=== PATIENT | female | born 1945 | race Caucasian/White ===

== ENCOUNTER 2016-11-14 11:29 | Inpatient (IN) | payer OTHER ==
[~2016-11-14] VITALS: Ht 163.8 cm; Wt 84.5 kg
--- NOTE | 2016-11-14 12:07 | EMERGENCY ROOM VISIT NOTE ---
History First contact with patient: 11:50 Chief Complaint: LEG PAIN,LEG INJURY Stated Complaint: PAIN IN LEG,NUMB FOOT History of Present Illness The patient is a 71 year old female who presents to the Emergency Room with complaints of right leg pain and numbness. The patient states that she noticed some discomfort at her right leg. She states that she now has pain that radiates throughout her entire calf. She states that she has numbness in the right foot. She states that she is not able to dorsiflex her right foot and will trip over the foot if she is not paying attention. The patient rates her discomfort a 5/10. She reports a history of low back pain and right hip pain. The patient had a colonoscopy performed on Saturday. The patient denies any known falls or injuries. She denies any pain in her chest or trouble breathing. She denies any numbness, tingling or weakness in the other extremities. She denies any headache or dizziness. Review of Systems A 10 system review of systems was completed with positives and pertinent negatives listed in the HPI. Past Medical/Surgical History Medical Problems: (1) Hypertension Surgical Problems: (1) H/O ovarian cystectomy (2) History of appendectomy Social History Smoking Status: Former Smoker Housing Status: lives with family Current/Historical Medications Scheduled Aspirin (Aspirin EC Low Dose), 81 MG PO DAILY Fish Oil ([place]-3), 4 CAP PO DAILY Hctz/Losartan (Hyzaar 12.5MG/50MG), 1 TAB PO DAILY Iodine (Bulk) (Iodine), 2 TAB PO DAILY Multivitamin (Multivitamin), 1 TAB PO DAILY [calcium], 1,250 MG PO DAILY Physical Exam Vital Signs Date Time Temp Pulse Resp B/P (MAP) Pulse Ox O2 Delivery O2 Flow Rate FiO2 11/14/16 14:02 87 16 210/99 97 Room Air 11/14/16 12:20 88 20 195/94 98 Room Air 11/14/16 11:30 36.7 113 16 203/109 96 Room Air Physical Exam VITALS: Vitals are noted on the nurse's note and reviewed by myself. Vital signs stable. GENERAL: This is a 71-year-old female, in no acute distress, nondiaphoretic, well-developed well-nourished. SKIN: The skin was without rashes, erythema, edema, or bruising. There is no tenting of the skin. Capillary reflex less than 2 seconds. HEAD: Normocephalic atraumatic. EYES: Pupils equal round and reactive to light and accommodation. Conjunctivae without injection, sclerae without icterus. Extraocular movements intact. NOSE: Patent, turbinates without inflammation or discharge. MOUTH: Mucous membranes moist. Tonsils are not enlarged. Pharynx without erythema or exudate. Uvula midline. Airway patent. Tongue does not deviate. NECK: Supple without nuchal rigidity. No lymphadenopathy. No thyromegaly. Cervical spine is nontender. No JVD. HEART: Regular rate and rhythm without murmurs gallops or rubs. LUNGS: Clear to auscultation bilaterally without wheezes, rales or rhonchi. No retractions or accessory muscle use. ABDOMEN: Positive bowel sounds x 4. Soft, nontender, without masses or organomegaly. MUSCULOSKELETAL: There is minimal tenderness to palpation of the lumbar spine. There is tenderness to palpation to the right hip. There is no erythema, warmth , tenderness, palpable cord of the right calf or leg. There is no edema. The patient has full range of motion at the hip, knee on the right leg. The patient is not able to dorsiflex or plantar flex the right foot. Pulses are 2+ in the lower extremities bilaterally. NEURO: Patient was alert and oriented to person place and time. Normal sensation to light and sharp touch. Deep tendon reflexes 2+ in the patellar tendons bilaterally. The tendon reflex in the right Achilles is absent. It is 2+ in the left Achilles. The patient is unable to plantar or dorsiflex the right foot. Medical Decision & Procedures ER Provider Diagnostic Interpretation: [~ rep ct add3]] CT HEAD WITHOUT CONTRAST (CT) CLINICAL HISTORY: right foot drop COMPARISON STUDY: No previous studies for comparison. TECHNIQUE: Axial CT of the brain is performed from the vertex to the skull base. IV contrast was not administered for this examination. A dose lowering technique was utilized adhering to the principles of ALARA. CT DOSE: 614.27 mGy.cm FINDINGS: No intra or extra-axial mass lesions are visualized. There is no CT evidence of acute cortical infarction. There is no evidence of midline shift. There is no acute hemorrhage. No calvarial fractures are visualized. There are patchy white matter hypodensities likely on a small vessel basis. 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 There is no evidence of acute sinusitis IMPRESSION: No acute intracranial findings CT LUMBAR SPINE WITHOUT CT DOSE: 1251.23 mGy.cm CLINICAL HISTORY: right foot drop TECHNIQUE: Helical images were acquired in transverse plane. Reformatted sagittal and coronal images were reviewed. A dose lowering technique was utilized adhering to the principles of ALARA. CONTRAST: No contrast was administered COMPARISON STUDY: None. FINDINGS: L1-2 level: There is no evidence of significant disc bulge or focal herniation. There is no evidence of spinal or foraminal stenosis. L2-3 level: There are degenerative changes present. There is a circumferential disc bulge. There is mild spinal stenosis. There is minor bilateral foraminal narrowing. L3-4 level: There is a circumferential disc bulge present. There is moderate spinal stenosis. There is mild bilateral foraminal narrowing. L4-5 level: There is a circumferential disc bulge present. There is minor spinal stenosis present. There is mild bilateral foraminal narrowing L5-S1 level: There is no evidence of significant disc bulge or focal herniation. There is no evidence of spinal or foraminal stenosis. No acute fractures or subluxations are visualized. There is discogenic endplate sclerosis the L2-3 and L4-5 levels. Several Schmorl's nodes are visualized. IMPRESSION: 1. No acute fractures or traumatic subluxations identified 2. Multilevel spondylitic changes. There is mild spinal stenosis the L2-3 level, there is moderate spinal stenosis the L3-4 level, and there is mild spinal stenosis at the L4-5 level. There is bilateral foraminal narrowing at the L2-3, L3-4 level and L4-5 levels. Laboratory Results 11/14/16 12:05 Red Blood Count 5.18, Mean Corpuscular Volume 87.8, Mean Corpuscular Hemoglobin 30.1, Mean Corpuscular Hemoglobin Concent 34.3, Mean Platelet Volume 9.8, Neutrophils (%) (Auto) 69.5, Lymphocytes (%) (Auto) 24.4, Monocytes (%) (Auto) 4.8, Eosinophils (%) (Auto) 0.6, Basophils (%) (Auto) 0.5, Neutrophils # (Auto) 6.13, Lymphocytes # (Auto) 2.15, Monocytes # (Auto) 0.42, Eosinophils # (Auto) 0.05, Basophils # (Auto) 0.04 11/14/16 12:05 Test 11/14/16 12:05 White Blood Count 8.81 K/uL (4.8-10.8) Red Blood Count 5.18 M/uL (4.2-5.4) Hemoglobin 15.6 g/dL (12.0-16.0) Hematocrit 45.5 % (37-47) Mean Corpuscular Volume 87.8 fL (80-100) Mean Corpuscular Hemoglobin 30.1 pg (25-34) Mean Corpuscular Hemoglobin Concent 34.3 g/dl (32-36) Platelet Count 366 K/uL (130-400) Mean Platelet Volume 9.8 fL (7.4-10.4) Neutrophils (%) (Auto) 69.5 % Lymphocytes (%) (Auto) 24.4 % Monocytes (%) (Auto) 4.8 % Eosinophils (%) (Auto) 0.6 % Basophils (%) (Auto) 0.5 % Neutrophils # (Auto) 6.13 K/uL (1.4-6.5) Lymphocytes # (Auto) 2.15 K/uL (1.2-3.4) Monocytes # (Auto) 0.42 K/uL (0.11-0.59) Eosinophils # (Auto) 0.05 K/uL (0-0.5) Basophils # (Auto) 0.04 K/uL (0-0.2) RDW Standard Deviation 44.3 fL (36.4-46.3) RDW Coefficient of Variation 13.8 % (11.5-14.5) Immature Granulocyte % (Auto) 0.2 % Immature Granulocyte # (Auto) 0.02 K/uL (0.00-0.02) Prothrombin Time 9.8 SECONDS (9.0-12.0) Prothromb Time International Ratio 0.9 (0.9-1.1) Activated Partial Thromboplast Time 26.4 SECONDS (21.0-31.0) Partial Thromboplastin Ratio 1.0 Anion Gap 7.0 mmol/L (3-11) Est Creatinine Clear Calc Drug Dose 76.5 ml/min Estimated GFR () 91.5 Estimated GFR (Non- 78.9 BUN/Creatinine Ratio 20.2 (10-20) Calcium Level 9.1 mg/dl (8.5-10.1) Total Bilirubin 0.4 mg/dl (0.2-1) Aspartate Amino Transf (AST/SGOT) 19 U/L (15-37) Alanine Aminotransferase (ALT/SGPT) 30 U/L (12-78) Alkaline Phosphatase 107 U/L (45-117) Total Protein 7.1 gm/dl (6.4-8.2) Albumin 3.5 gm/dl (3.4-5.0) Globulin 3.6 gm/dl (2.5-4.0) Albumin/Globulin Ratio 1.0 (0.9-2) Lyme Disease IgG Antibody NEG (NEG) Lyme Disease IgM Antibody NEG (NEG) ED Course The patient was seen and examined. Previous visits were reviewed. The patient does not have a fever or leukocytosis. She does not have any significant electrolyte abnormality. INR 0.9. Lyme titer is negative. CT scan of the brain was negative for acute finding CT scan of the lumbar spine reveals chronic and degenerative changes The patient was seen and examined. Previous visits were reviewed. The patient complains of right foot drop. On examination, she is quite weak in dorsiflexion and plantar flexion of the right foot. She is easily able to move the leg at the hip and knee. This could potentially represent a peripheral neuropathy. She states she did wear a brace on her knee all night last night as she has had knee trouble. She also had a colonoscopy on Saturday, potentially she could have had some nerve compression due to positioning. The patient however was noted to be fairly hypertensive. The exact etiology of her symptoms is not clear. She will likely need an EMG. I discussed the case with Dr. Shah who also examined the patient. He recommends admission to the hospital for further evaluation and management. [facility] and [facility] will [facility] the patient. Medical Decision DIFFERENTIAL DIAGNOSIS: Lumbar strain, degenerative disc disease, spondylolisthesis, herniated disc, spinal stenosis, osteoporosis, fracture, cauda equina syndrome, neoplasm, infection, inflammatory arthritis, peripheral neuropathy, Aortic dissection, myocarditis, pericarditis, cervical disc disease , costochondritis, herpes zoster, rib fracture, pleuritis, pneumonia, pulmonary embolus, tension pneumothorax, anxiety disorder, somatoform disorder, choledocholithiasis, status, esophagitis, esophageal spasm, esophageal reflux, esophageal rupture, pancreatitis, peptic ulcer disease, cardiac ischemia, ST elevation AL, acute coronary syndrome, arrhythmia, coronary artery vasospasm. vavular heart disease, coronary artery disease, among others. Medication Reconcilliation Current Medication List: was personally reviewed by me Blood Pressure Screening Patient's blood pressure: Elevated blood pressure Blood pressure disposition: Elevated BP felt to be situational, Referred to PCP Impression Primary Impression: Right foot drop Additional Impression: Hypertension Departure Information Dispostion Admitted as an inpatient Referrals No Doctor, Assigned (PCP) Patient Instructions My [facility] Problem Qualifiers
[2016-11-14] MEDS ORDERED: OMEG10007 PO ×2 (12:24→15:25)
[2016-11-14] MEDS ORDERED: HYZ/10015 PO (12:24)
[2016-11-14] MEDS ORDERED: IODI1MIS PO (12:24)
[2016-11-14] MEDS ORDERED: MULT-506 PO (12:24)
[2016-11-14 12:32] LABS: BASO % 0.5 %; BASO ABS # 0.04 K/uL (0-0.2); COMPLETE YES; EOS % 0.6 %; HEMATOCRIT 45.5 % (37-47); IG% 0.2 %; LYMPH % 24.4 %; LYMPH ABS # 2.15 K/uL (1.2-3.4); MEAN CELL VOLUME 87.8 fL (80-100); MEAN CORPUSCULAR HEMOGLOBIN 30.1 pg (25-34); MEAN CORPUSCULAR HGB CONC 34.3 g/dl (32-36); MEAN PLATELET VOLUME 9.8 fL (7.4-10.4); MONO % 4.8 %; NEUT % 69.5 %; PLATELET COUNT 366 K/uL (130-400); RED BLOOD COUNT 5.18 M/uL (4.2-5.4); WHITE BLOOD COUNT 8.81 K/uL (4.8-10.8)
[2016-11-14 12:52] LABS: INR 0.9 (0.9-1.1); PROTHROMBIN TIME (PATIENT) 9.8 SECONDS (9.0-12.0)
[2016-11-14 12:56] LABS: BUN/CREATININE RATIO 20.2 (10-20); CALCIUM 9.1 mg/dl (8.5-10.1); CREATININE 0.76 mg/dl (0.60-1.20); POTASSIUM 3.5 mmol/L (3.5-5.1)
--- NOTE | 2016-11-14 13:09 | DIAGNOSTIC IMAGING REPORT ---
CT HEAD WITHOUT CONTRAST (CT) CLINICAL HISTORY: right foot drop COMPARISON STUDY: No previous studies for comparison. TECHNIQUE: Axial CT of the brain is performed from the vertex to the skull base. IV contrast was not administered for this examination. A dose lowering technique was utilized adhering to the principles of ALARA. CT DOSE: 614.27 mGy.cm FINDINGS: No intra or extra-axial mass lesions are visualized. There is no CT evidence of acute cortical infarction. There is no evidence of midline shift. There is no acute hemorrhage. No calvarial fractures are visualized. There are patchy white matter hypodensities likely on a small vessel basis. 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 There is no evidence of acute sinusitis IMPRESSION: No acute intracranial findings Electronically signed by: Jose Luis Mack M.D. 11/14/2016 1:07 PM Dictated Date/Time: 11/14/2016 1:06 PM
--- NOTE | 2016-11-14 13:15 | DIAGNOSTIC IMAGING REPORT ---
CT LUMBAR SPINE WITHOUT CT DOSE: 1251.23 mGy.cm CLINICAL HISTORY: right foot drop TECHNIQUE: Helical images were acquired in transverse plane. Reformatted sagittal and coronal images were reviewed. A dose lowering technique was utilized adhering to the principles of ALARA. CONTRAST: No contrast was administered COMPARISON STUDY: None. FINDINGS: L1-2 level: There is no evidence of significant disc bulge or focal herniation. There is no evidence of spinal or foraminal stenosis. L2-3 level: There are degenerative changes present. There is a circumferential disc bulge. There is mild spinal stenosis. There is minor bilateral foraminal narrowing. L3-4 level: There is a circumferential disc bulge present. There is moderate spinal stenosis. There is mild bilateral foraminal narrowing. L4-5 level: There is a circumferential disc bulge present. There is minor spinal stenosis present. There is mild bilateral foraminal narrowing L5-S1 level: There is no evidence of significant disc bulge or focal herniation. There is no evidence of spinal or foraminal stenosis. No acute fractures or subluxations are visualized. There is discogenic endplate sclerosis the L2-3 and L4-5 levels. Several Schmorl's nodes are visualized. IMPRESSION: 1. No acute fractures or traumatic subluxations identified 2. Multilevel spondylitic changes. There is mild spinal stenosis the L2-3 level, there is moderate spinal stenosis the L3-4 level, and there is mild spinal stenosis at the L4-5 level. There is bilateral foraminal narrowing at the L2-3, L3-4 level and L4-5 levels. Electronically signed by: Jose Luis Mack M.D. 11/14/2016 1:14 PM Dictated Date/Time: 11/14/2016 1:10 PM
[2016-11-14 13:55] LABS: LYME DISEASE AB IGG NEG (NEG); LYME DISEASE AB IGM NEG (NEG)
--- NOTE | 2016-11-14 14:54 | EMERGENCY ROOM VISIT NOTE ---
ED Visit Note First contact with patient: 11:50 I have seen and examined this patient with Vilma Mian and generally agree with the treatment plan as discussed. Current/Historical Medications Scheduled Hctz/Losartan (Hyzaar 25MG/100MG), 1 TAB PO DAILY Multivitamin (Multivitamin), 1 TAB PO DAILY Miscellaneous Medications Fish Oil ([place]-3), 1 CAP PO Iodine (Bulk) (Iodine) Vital Signs Date Time Temp Pulse Resp B/P (MAP) Pulse Ox O2 Delivery O2 Flow Rate FiO2 11/14/16 14:02 87 16 210/99 97 Room Air 11/14/16 12:20 88 20 195/94 98 Room Air 11/14/16 11:30 36.7 113 16 203/109 96 Room Air Laboratory Results 11/14/16 12:05 Red Blood Count 5.18, Mean Corpuscular Volume 87.8, Mean Corpuscular Hemoglobin 30.1, Mean Corpuscular Hemoglobin Concent 34.3, Mean Platelet Volume 9.8, Neutrophils (%) (Auto) 69.5, Lymphocytes (%) (Auto) 24.4, Monocytes (%) (Auto) 4.8, Eosinophils (%) (Auto) 0.6, Basophils (%) (Auto) 0.5, Neutrophils # (Auto) 6.13, Lymphocytes # (Auto) 2.15, Monocytes # (Auto) 0.42, Eosinophils # (Auto) 0.05, Basophils # (Auto) 0.04 11/14/16 12:05 Test 11/14/16 12:05 White Blood Count 8.81 K/uL (4.8-10.8) Red Blood Count 5.18 M/uL (4.2-5.4) Hemoglobin 15.6 g/dL (12.0-16.0) Hematocrit 45.5 % (37-47) Mean Corpuscular Volume 87.8 fL (80-100) Mean Corpuscular Hemoglobin 30.1 pg (25-34) Mean Corpuscular Hemoglobin Concent 34.3 g/dl (32-36) Platelet Count 366 K/uL (130-400) Mean Platelet Volume 9.8 fL (7.4-10.4) Neutrophils (%) (Auto) 69.5 % Lymphocytes (%) (Auto) 24.4 % Monocytes (%) (Auto) 4.8 % Eosinophils (%) (Auto) 0.6 % Basophils (%) (Auto) 0.5 % Neutrophils # (Auto) 6.13 K/uL (1.4-6.5) Lymphocytes # (Auto) 2.15 K/uL (1.2-3.4) Monocytes # (Auto) 0.42 K/uL (0.11-0.59) Eosinophils # (Auto) 0.05 K/uL (0-0.5) Basophils # (Auto) 0.04 K/uL (0-0.2) RDW Standard Deviation 44.3 fL (36.4-46.3) RDW Coefficient of Variation 13.8 % (11.5-14.5) Immature Granulocyte % (Auto) 0.2 % Immature Granulocyte # (Auto) 0.02 K/uL (0.00-0.02) Prothrombin Time 9.8 SECONDS (9.0-12.0) Prothromb Time International Ratio 0.9 (0.9-1.1) Activated Partial Thromboplast Time 26.4 SECONDS (21.0-31.0) Partial Thromboplastin Ratio 1.0 Anion Gap 7.0 mmol/L (3-11) Est Creatinine Clear Calc Drug Dose 76.5 ml/min Estimated GFR () 91.5 Estimated GFR (Non- 78.9 BUN/Creatinine Ratio 20.2 (10-20) Calcium Level 9.1 mg/dl (8.5-10.1) Total Bilirubin 0.4 mg/dl (0.2-1) Aspartate Amino Transf (AST/SGOT) 19 U/L (15-37) Alanine Aminotransferase (ALT/SGPT) 30 U/L (12-78) Alkaline Phosphatase 107 U/L (45-117) Total Protein 7.1 gm/dl (6.4-8.2) Albumin 3.5 gm/dl (3.4-5.0) Globulin 3.6 gm/dl (2.5-4.0) Albumin/Globulin Ratio 1.0 (0.9-2) Lyme Disease IgG Antibody NEG (NEG) Lyme Disease IgM Antibody NEG (NEG) Departure Information Referrals Trudi He M.D. (MEDICAL) (PCP) Patient Instructions My [facility]
[2016-11-14] MEDS ORDERED: ACETAMINOPHEN 325 MG TAB PO PRN (15:00)
[2016-11-14] MEDS ORDERED: ONDANSETRON INJ 2 MG/ML 2 ML VIAL IV PRN (15:00)
[2016-11-14] MEDS ORDERED: PATIENT'S ALLERGY INFO NEEDS ENTERED SCH (15:15)
[2016-11-14] MEDS ORDERED: calcium PO (15:25)
[2016-11-14] MEDS ORDERED: HYZ/50125 PO (15:25)
[2016-11-14] MEDS ORDERED: ASPEC81 PO (15:25)
[2016-11-14] MEDS ORDERED: IV FLUIDS COMPLETED PRN (15:30)
[2016-11-14] MEDS ORDERED: HydrALAZINE HCL 20 MG/ML VIAL IV. PRN (15:45)
--- NOTE | 2016-11-14 16:58 | History and Physical ---
History & Physical Date & Time of Service: Nov 14, 2016 ~ 14:45 Chief Complaint: Right Foot Drop Primary Care Physician: Trudi He M.D. (MEDICAL) History of Present Illness 71 year female who presents to the ER with right foot drop. Patient reports that over the past couple of weeks she has noticed her right knee giving out on her. She denies any pain in the leg. She denies any injury or trauma. She wore a brace on her leg throughout the night. When she woke up this morning she reports she could not move her right foot. She reports sensation is intact to the foot. She was also able to walk however her foot was dragging. She denies any other unilateral weakness, numbness, or tingling. She denies any headache, blurred vision, slurred speech, drooling, or difficulty swallowing. No chest pain, shortness of breath, lightheadedness, dizziness, diaphoresis, or syncopal events. She denies fever and chills. No abdominal pain, nausea, vomiting, or diarrhea. She denies urinary symptoms. In the ER, patient's BP was found to be elevated at 203/109. Head CT is negative for acute findings. Lumbar CT is showing multilevel mild-moderate spinal stenosis. Past Medical/Surgical History Medical Problems: (1) Hypertension Status: Chronic Surgical Problems: (1) H/O ovarian cystectomy Status: Chronic (2) History of appendectomy Status: Chronic Family History FH: CAD (coronary artery disease) FATHER (fatal [facility] at age 45) BROTHER (CABG in his 50s) BROTHER (CABG in his 50s) SISTER ([facility] at age 53) FH: liver cancer MOTHER Social History Smoking Status: Former Smoker Alcohol Use: occasionally Immunizations History of Tetanus Vaccine?: Yes Tetanus Immunization Date: Jun 11, 2012 Allergies Coded Allergies: No Known Allergies (Unverified , 11/14/16) Home Medications Scheduled Aspirin (Aspirin EC Low Dose), 81 MG PO DAILY Fish Oil (House-3), 4 CAP PO DAILY Hctz/Losartan (Hyzaar 12.5MG/50MG), 1 TAB PO DAILY Iodine (Bulk) (Iodine), 2 TAB PO DAILY Multivitamin (Multivitamin), 1 TAB PO DAILY [calcium], 1,250 MG PO DAILY Review of Systems ROS per HPI, all other systems reviewed and negative Physical Exam Vital Signs Date Time Temp Pulse Resp B/P (MAP) Pulse Ox O2 Delivery O2 Flow Rate FiO2 11/14/16 15:40 86 18 209/96 96 Room Air 11/14/16 14:02 87 16 210/99 97 Room Air 11/14/16 12:20 88 20 195/94 98 Room Air 11/14/16 11:30 36.7 113 16 203/109 96 Room Air General Appearance: no apparent distress Head: normocephalic, atraumatic Eyes: normal inspection, PERRL, EOMI, sclerae normal ENT: hearing grossly normal Neck: supple, no JVD Respiratory/Chest: lungs clear, normal breath sounds, no respiratory distress Cardiovascular: regular rate, rhythm, no edema, normal peripheral pulses Abdomen/GI: normal bowel sounds, non tender, soft Extremities/Musculoskelatal: + pertinent finding (+ right foot drop) Neurologic/Psych: alert, oriented x 3, + pertinent finding (right foot drop noted; 5/5 strength noted to BLLE with the exception of inability to preform right pedal push and pull; no other focal deficits noted) Skin: normal color, warm/dry Diagnostics Laboratory Results Results Past 24 Hours Test 11/14/16 12:05 Range/Units White Blood Count 8.81 4.8-10.8 K/uL Red Blood Count 5.18 4.2-5.4 M/uL Hemoglobin 15.6 12.0-16.0 g/dL Hematocrit 45.5 37-47 % Mean Corpuscular Volume 87.8 80-100 fL Mean Corpuscular Hemoglobin 30.1 25-34 pg Mean Corpuscular Hemoglobin Concent 34.3 32-36 g/dl Platelet Count 366 130-400 K/uL Mean Platelet Volume 9.8 7.4-10.4 fL Neutrophils (%) (Auto) 69.5 % Lymphocytes (%) (Auto) 24.4 % Monocytes (%) (Auto) 4.8 % Eosinophils (%) (Auto) 0.6 % Basophils (%) (Auto) 0.5 % Neutrophils # (Auto) 6.13 1.4-6.5 K/uL Lymphocytes # (Auto) 2.15 1.2-3.4 K/uL Monocytes # (Auto) 0.42 0.11-0.59 K/uL Eosinophils # (Auto) 0.05 0-0.5 K/uL Basophils # (Auto) 0.04 0-0.2 K/uL RDW Standard Deviation 44.3 36.4-46.3 fL RDW Coefficient of Variation 13.8 11.5-14.5 % Immature Granulocyte % (Auto) 0.2 % Immature Granulocyte # (Auto) 0.02 0.00-0.02 K/uL Prothrombin Time 9.8 9.0-12.0 SECONDS Prothromb Time International Ratio 0.9 0.9-1.1 Activated Partial Thromboplast Time 26.4 21.0-31.0 SECONDS Partial Thromboplastin Ratio 1.0 Sodium Level 140 136-145 mmol/L Potassium Level 3.5 3.5-5.1 mmol/L Chloride Level 107 98-107 mmol/L Carbon Dioxide Level 26 21-32 mmol/L Anion Gap 7.0 3-11 mmol/L Blood Urea Nitrogen 15 7-18 mg/dl Creatinine 0.76 0.60-1.20 mg/dl Est Creatinine Clear Calc Drug Dose 76.5 ml/min Estimated GFR () 91.5 Estimated GFR (Non- 78.9 BUN/Creatinine Ratio 20.2 10-20 Random Glucose 111 70-99 mg/dl Calcium Level 9.1 8.5-10.1 mg/dl Total Bilirubin 0.4 0.2-1 mg/dl Aspartate Amino Transf (AST/SGOT) 19 15-37 U/L Alanine Aminotransferase (ALT/SGPT) 30 12-78 U/L Alkaline Phosphatase 107 45-117 U/L Total Protein 7.1 6.4-8.2 gm/dl Albumin 3.5 3.4-5.0 gm/dl Globulin 3.6 2.5-4.0 gm/dl Albumin/Globulin Ratio 1.0 0.9-2 Lyme Disease IgG Antibody NEG NEG Lyme Disease IgM Antibody NEG NEG Diagnostic Radiology CT LUMBAR SPINE IMPRESSION: 1. No acute fractures or traumatic subluxations identified 2. Multilevel spondylitic changes. There is mild spinal stenosis the L2-3 level, there is moderate spinal stenosis the L3-4 level, and there is mild spinal stenosis at the L4-5 level. There is bilateral foraminal narrowing at the L2-3, L3-4 level and L4-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 from wearing right knee brace last night - PT, brace, and outpatient EMG testing HYPERTENSIVE URGENCY - patient reports "white coat hypertension" - asymptomatic, head CT negative - PRN hydralazine, continue Hyzaar - consider addition of amlodipine if needed DVT PROPHYLAXIS - SQ Lovenox DISPO - The patient will be placed as observation status for now until further work up is complete. Attending Addendum Pt was seen and examined. Agreed with Vy KOTHARI physical exam, assessment and plan. 71 year female with PMH of HTN presents to the ER with right foot drop. She said that in the last couple weeks her right knee starting to give up. Pt said that yesterday she saw her chiropractor and she said had some manipulation done on her back and the right knee. she said that she wore a brace last night in the right knee. She said that this morning she woke up with right foot drop. she said that she is dragging her right feet while ambulating. Pt said that before coming to the ER she had some work out on her stationary bike. She denies any other unilateral weakness, slurred speech, headache, dizziness, blurred vision, chest pain, palpitation, or tingling. She denies urinary symptoms, no bladder or bowel loss. In the ER, patient's BP was found to be elevated at 203/109. Head CT is negative for acute findings. Lumbar CT is showing multilevel mild-moderate spinal stenosis. General- No acute distress Head- atraumatic Eyes- PERRL, EOMI ENT- oropharynx clear Neck- supple, no JVD Lungs- clear to auscultation Heart- regular rhythm; no murmur Abdomen- normal bowel sounds, soft Extremities-no calf tenderness Neuro- alert, oriented x 3; PERRL, EOMI; no facial palsy; no dysarthria;finger to nose intact bilaterally, able to keep right leg up, motor 4/5 in RLE Skin- warm & dry A/P Right Foot Drop Denied any associated symptoms No neuro focal deficit on exam CT head negative CT Lumbar showed moderate spinal stenosis the L3-4 level Bilateral foraminal narrowing at the L2-3, L3-4 level and L4-5 levels. If pt symptoms not improved or any other stroke like symptoms develop, will get an MRI of the head Will Consult neuro for further eval continue monitor in tele Informed nurse for neuro check Hypertensive Urgency Elevated BP Received hydralazine in the ER Continue BP med Labetatol PRN for BP above 170 Sinus Tachycardia Possible related to anxiety from hospital setting Pt said that it is the hydralazine that she got in the ER that makes her feel funny Consider low dose of BB if HR increased above 120 DVT px on lovenox suq CODE STATUS FULL CODE VTE Prophylaxis VTE Risk Assessment Done? Y/N: Yes Risk Level: Moderate
[2016-11-14 17:18] VITALS: BP 186/73; PULSE 116; TEMP 36.4; O2SAT 99; Ht 163.8 cm; Wt 84.5 kg
[2016-11-14 17:43] VITALS: PULSE 128
[2016-11-14 18:35] VITALS: BP 176/77; PULSE 123
[2016-11-14 19:18] VITALS: BP 144/69; PULSE 115; TEMP 36.6; O2SAT 94
[2016-11-14] MEDS ORDERED: LABETALOL HCL IV 5 MG/ML 20ML IV PRN (20:15)
[2016-11-14] MEDS ORDERED: ENOXAPARIN 40 MG/0.4 ML SYR SC SCH (21:00)
--- NOTE | 2016-11-14 21:53 | Progress Note ---
Internal Med Progress Note Date of Service: Nov 14, 2016. Provider Documentation: Made aware by RN of patient history of intermittent slurred speech earlier before coming to the hospital. Speech currently not slurred as per RN. AP Intermittent slurred speech, right lower extremity weakness ? TIA ? aspirin failure Neurochecks MRI, MRA of the brain Plavix for now for possible aspirin failure until stroke ruled out. Permissive hypertension until stroke definitely ruled out. Will relay to AM provider. Vital Signs: Date Time Temp Pulse Resp B/P (MAP) Pulse Ox O2 Delivery O2 Flow Rate FiO2 11/15/16 07:15 36.7 69 20 182/81 (114) 97 Room Air 11/15/16 04:00 Room Air 11/15/16 03:54 36.7 89 18 168/84 (112) 95 Room Air 11/15/16 00:50 Room Air 11/15/16 00:00 36.9 97 18 173/97 (122) 95 Room Air 11/14/16 20:00 Room Air 11/14/16 19:18 36.6 115 20 144/69 (94) 94 Room Air 11/14/16 18:35 123 176/77 (110) 11/14/16 17:43 128 11/14/16 17:18 36.4 116 16 186/73 99 Room Air 11/14/16 16:06 79 20 161/69 95 Room Air 11/14/16 15:40 86 18 209/96 96 Room Air 11/14/16 14:02 87 16 210/99 97 Room Air 11/14/16 12:20 88 20 195/94 98 Room Air 11/14/16 11:30 36.7 113 16 203/109 96 Room Air Lab Results: Results Past 24 Hours Test 11/14/16 12:05 11/15/16 06:27 Range/Units White Blood Count 8.81 9.05 4.8-10.8 K/uL Red Blood Count 5.18 4.98 4.2-5.4 M/uL Hemoglobin 15.6 15.2 12.0-16.0 g/dL Hematocrit 45.5 42.9 37-47 % Mean Corpuscular Volume 87.8 86.1 80-100 fL Mean Corpuscular Hemoglobin 30.1 30.5 25-34 pg Mean Corpuscular Hemoglobin Concent 34.3 35.4 32-36 g/dl Platelet Count 366 340 130-400 K/uL Mean Platelet Volume 9.8 9.4 7.4-10.4 fL Neutrophils (%) (Auto) 69.5 % Lymphocytes (%) (Auto) 24.4 % Monocytes (%) (Auto) 4.8 % Eosinophils (%) (Auto) 0.6 % Basophils (%) (Auto) 0.5 % Neutrophils # (Auto) 6.13 1.4-6.5 K/uL Lymphocytes # (Auto) 2.15 1.2-3.4 K/uL Monocytes # (Auto) 0.42 0.11-0.59 K/uL Eosinophils # (Auto) 0.05 0-0.5 K/uL Basophils # (Auto) 0.04 0-0.2 K/uL RDW Standard Deviation 44.3 43.9 36.4-46.3 fL RDW Coefficient of Variation 13.8 14.1 11.5-14.5 % Immature Granulocyte % (Auto) 0.2 % Immature Granulocyte # (Auto) 0.02 0.00-0.02 K/uL Prothrombin Time 9.8 9.0-12.0 SECONDS Prothromb Time International Ratio 0.9 0.9-1.1 Activated Partial Thromboplast Time 26.4 21.0-31.0 SECONDS Partial Thromboplastin Ratio 1.0 Sodium Level 140 141 136-145 mmol/L Potassium Level 3.5 3.8 3.5-5.1 mmol/L Chloride Level 107 108 98-107 mmol/L Carbon Dioxide Level 26 26 21-32 mmol/L Anion Gap 7.0 7.0 3-11 mmol/L Blood Urea Nitrogen 15 16 7-18 mg/dl Creatinine 0.76 0.75 0.60-1.20 mg/dl Est Creatinine Clear Calc Drug Dose 76.5 73.1 ml/min Estimated GFR () 91.5 92.9 Estimated GFR (Non- 78.9 80.2 BUN/Creatinine Ratio 20.2 21.9 10-20 Random Glucose 111 106 70-99 mg/dl Calcium Level 9.1 9.0 8.5-10.1 mg/dl Total Bilirubin 0.4 0.2-1 mg/dl Aspartate Amino Transf (AST/SGOT) 19 15-37 U/L Alanine Aminotransferase (ALT/SGPT) 30 12-78 U/L Alkaline Phosphatase 107 45-117 U/L Total Protein 7.1 6.4-8.2 gm/dl Albumin 3.5 3.4-5.0 gm/dl Globulin 3.6 2.5-4.0 gm/dl Albumin/Globulin Ratio 1.0 0.9-2 Lyme Disease IgG Antibody NEG NEG Lyme Disease IgM Antibody NEG NEG Triglycerides Level 120 0-150 mg/dl Cholesterol Level 226 0-200 mg/dl HDL Cholesterol 54 mg/dl LDL Cholesterol, Calculated 148 mg/dl VLDL Cholesterol, Calculated 24 mg/dl Cholesterol/HDL Ratio 4.2
[2016-11-14] MEDS ORDERED: CLOPIDOGREL BISULFATE 75 MG TAB PO ONE (22:00)
[2016-11-14] MEDS ORDERED: PHARMACIST DISCHARGE MED REC CONSULT PRN (22:15)
[2016-11-15] VITALS (7 sets, daily range): BP systolic 146–182; BP diastolic 75–97; PULSE 69–97; TEMP 36.7–36.9; O2SAT 95–97
[2016-11-15] MEDS ORDERED: POTASSIUM CHLORIDE 10 MEQ TABCR PO STA (00:26)
[2016-11-15] MEDS ORDERED: LACTATED RINGER'S 1000ML 1,000 ML IV ONE (00:30)
[2016-11-15] MEDS ORDERED: PHARMACIST DISCHARGE MED REC CONSULT PRN (06:30)
--- NOTE | 2016-11-15 06:30 | DIAGNOSTIC IMAGING REPORT ---
MRI OF THE BRAIN WITHOUT CONTRAST CLINICAL HISTORY: intermittent slurred speech RIGHT FOOT DROP. COMPARISON STUDY: Noncontrast head CT dated 11/14/2016 FINDINGS: Sagittal T1, axial diffusion, proton density and T2 weighted axial, coronal FLAIR, and axial T1-weighted images were acquired. No intra or extra-axial mass lesions are visualized There are foci of restricted water diffusion within the left frontoparietal parasagittal cortex. These are consistent with acute/subacute infarcts.. There is no evidence of ventricular dilatation. Proton density T2-weighted and FLAIR images reveal moderate foci of increased T2 signal within the white matter, likely on a small vessel basis. There are old lacunar infarcts in the right basal ganglia. There are atrophic changes. There are no abnormal flow voids. IMPRESSION: Multiple small foci restricted water diffusion within the left frontoparietal parasagittal cortex. These are consistent with acute/subacute infarcts. Electronically signed by: Jose Luis Mack M.D. 11/15/2016 6:28 AM Dictated Date/Time: 11/15/2016 6:26 AM
[2016-11-15 06:54] LABS: HEMATOCRIT 42.9 % (37-47); MEAN CELL VOLUME 86.1 fL (80-100); MEAN CORPUSCULAR HEMOGLOBIN 30.5 pg (25-34); MEAN CORPUSCULAR HGB CONC 35.4 g/dl (32-36); MEAN PLATELET VOLUME 9.4 fL (7.4-10.4); PLATELET COUNT 340 K/uL (130-400); RED BLOOD COUNT 4.98 M/uL (4.2-5.4); WHITE BLOOD COUNT 9.05 K/uL (4.8-10.8)
--- NOTE | 2016-11-15 07:04 | DIAGNOSTIC IMAGING REPORT ---
Brain MRA HISTORY: intermittent slurred speech TECHNIQUE: 3-D [id number] MRA of the brain was performed without contrast. COMPARISON STUDY: Head CT 11/14/2016. FINDINGS: Visualized intracranial internal carotid arteries, distal vertebral arteries, and basilar artery are widely patent. There is no significant stenosis, occlusion, or aneurysm seen within the bilateral ACAs, MCAs. Mild focal narrowing within the bilateral distal director organizational. Mild focal narrowing within the right carotid siphon due to the atherosclerotic plaque. IMPRESSION: Mild focal narrowing within the bilateral distal director organizational and right carotid siphon. Otherwise the remaining cerebral arteries show no significant stenosis, occlusion, or aneurysm. Electronically signed by: Srinivasa Sue M.D. 11/15/2016 7:03 AM Dictated Date/Time: 11/15/2016 6:59 AM
[2016-11-15 07:26] LABS: BUN/CREATININE RATIO 21.9 (10-20); CREATININE 0.75 mg/dl (0.60-1.20); POTASSIUM 3.8 mmol/L (3.5-5.1)
[2016-11-15 07:30] LABS: CHOLESTEROL/HDL RATIO 4.2
--- NOTE | 2016-11-15 08:11 | DIAGNOSTIC IMAGING REPORT ---
CAROTID DOPPLER NECK ART HISTORY: Mental status change stroke COMPARISON: MRA 11/14/2016 TECHNIQUE: Real-time, grayscale, and color Doppler sonography of the carotid arteries was performed. Imaging reviewed in the transverse and longitudinal planes. All measurements were calculated based on NASCET criteria. FINDINGS: Antegrade flow is seen in the bilateral vertebral arteries. The brachial pressures are hemodynamically similar. Mild plaque formation bilaterally The peak systolic velocity within the right ICA is 96. The right systolic ratio is 1.2. The peak systolic velocity within the left ICA is 74. The left systolic ratio is 1.0. IMPRESSION: Minimal/mild plaque formation bilaterally. No significant stenosis. The above report was generated using voice recognition software. It may contain grammatical, syntax or spelling errors. Electronically signed by: Reji Sanchez M.D. 11/15/2016 8:10 AM Dictated Date/Time: 11/15/2016 8:09 AM
[2016-11-15] MEDS ORDERED: LOSARTAN POTASSIUM 25 MG TAB PO SCH (09:00)
[2016-11-15] MEDS ORDERED: ASPIRIN 81 MG ECTAB PO SCH ×2 (09:00)
[2016-11-15] MEDS ORDERED: CLOPIDOGREL BISULFATE 75 MG TAB PO SCH (09:00)
[2016-11-15] MEDS ORDERED: MULTIVITAMIN TAB PO SCH (09:00)
[2016-11-15] MEDS ORDERED: ATORVASTATIN 20 MG TAB PO SCH (09:00)
[2016-11-15] MEDS ORDERED: LOSARTAN/HCTZ 50-12.5 EA TAB PO SCH (09:00)
--- NOTE | 2016-11-15 11:31 | ECHOCARDIOGRAM REPORT ---
*NOTICE TO RECEIVING DEMOCRAT AGENCY This information is strictly Confidential and protected under [place] law. [place] law prohibits you from making any further disclosure of this information unless further disclosure is expressly permitted by the written consent of the person to whom it pertains or is authorized by law. A general authorization for the release of medical or other information is not sufficient for this purpose. Hospital accepts no responsibility if the information is made available to any other person, INCLUDING THE PATIENT. Interpretation Summary * Name: JACQUIE CALDWELL Study Date: 11/15/2016 06:42 AM BP: 168/84 mmHg * Patient Location: C.2T\S\S239\S\2 HR: 89 * : 1945 (M/d/yy) Gender: Female Height: 64 in * Age: 71 yrs Ethnicity: CA Weight: 188 lb * Ordering Physician: Angel Nelson * Referring Physician: Self, Referred * Performed By: Vilma Trinh RDCS * * Reason For Study: STROKE * BSA: 1.9 m2 * The study was technically adequate. * There is no comparison study available. * -- Conclusions -- * Ejection Fraction = 65-70%. * There is moderate concentric left ventricular hypertrophy. * Grade I diastolic dysfunction, (abnormal relaxation pattern). * Injection of contrast documented no interatrial shunt. * No significant valvular pathology. Procedure Details * A complete two-dimensional transthoracic echocardiogram was performed (2D, M-mode, Doppler and color flow Doppler). * A saline contrast injection was performed to assess for cardiac shunting. * The injection was performed through an intravenous line in the right arm. * The attending nurse who injected the saline contrast was VIVEK CABALLERO RN. * A total of 20 cc of agitated saline was given. Left Ventricle * The left ventricle is normal in size. * There is moderate concentric left ventricular hypertrophy. * Ejection Fraction = 65-70%. * Left ventricular systolic function is normal. * The left ventricular wall motion is normal. Right Ventricle * The right ventricle is normal size. * The right ventricular systolic function is normal as assessed by tricuspid annular plane systolic excursion (TAPSE) (normal >1.5 cm). Atria * The left atrial size is normal. * Right atrial size is normal. * Injection of contrast documented no interatrial shunt. Mitral Valve * The mitral valve is normal. * The mitral valve leaflets appear thickened, but open well. * There is no mitral valve stenosis. * Significant mitral regurgitation is absent. Tricuspid Valve * The tricuspid valve is not well visualized. * There is no tricuspid stenosis. * Significant tricuspid regurgitation is absent. Aortic Valve * The aortic valve is not well visualized. * Aortic stenosis is absent. * There is no significant aortic regurgitation. Pulmonic Valve * The pulmonary valve is not well seen, but the Doppler examination is normal without significant regurgitation or stenosis. Great Vessels * The aortic root is normal size. Pericardium/Pleural * There is no pericardial effusion. Great Vessels * Normal inferior vena cava diameter and respiratory variation suggests normal central venous pressure. Left Ventricular Diastolic Function * Grade I diastolic dysfunction, (abnormal relaxation pattern). MMode 2D Measurements and Calculations IVSd 1.6 cm IVSs 2.1 cm LVIDd 3.0 cm LVIDs 1.6 cm LVPWd 1.5 cm LVPWs 2.0 cm IVS/LVPW 1.1 FS 44.8 % EDV(Teich) 34.3 ml ESV(Teich) 7.7 ml EF(Teich) 77.6 % EDV(cubed) 26.3 ml ESV(cubed) 4.4 ml EF(cubed) 83.2 % % IVS thick 29.2 % % LVPW thick 37.6 % LV mass(C)d 163.4 grams LV mass(C)dI 85.7 grams/m\S\2 LV mass(C)s 154.9 grams LV mass(C)sI 81.3 grams/m\S\2 SV(Teich) 26.6 ml SI(Teich) 14.0 ml/m\S\2 SV(cubed) 21.9 ml SI(cubed) 11.5 ml/m\S\2 Ao root diam 2.9 cm Ao root area 6.4 cm\S\2 LA dimension 3.3 cm LA/Ao 1.2 LVAd ap4 29.3 cm\S\2 LVLd ap4 7.9 cm EDV(MOD-sp4) 87.9 ml EDV(sp4-el) 91.7 ml LVAs ap4 14.1 cm\S\2 LVLs ap4 6.5 cm ESV(MOD-sp4) 26.2 ml ESV(sp4-el) 25.8 ml EF(MOD-sp4) 70.1 % EF(sp4-el) 71.8 % LVAd ap2 26.8 cm\S\2 LVLd ap2 8.2 cm EDV(MOD-sp2) 70.9 ml EDV(sp2-el) 74.5 ml LVAs ap2 14.3 cm\S\2 LVLs ap2 7.1 cm ESV(MOD-sp2) 27.5 ml ESV(sp2-el) 24.5 ml EF(MOD-sp2) 61.2 % EF(sp2-el) 67.1 % LVLd %diff 2.8 % EDV(MOD-bp) 78.8 ml LVLs %diff 7.8 % ESV(MOD-bp) 26.5 ml EF(MOD-bp) 66.4 % SV(MOD-sp4) 61.6 ml SI(MOD-sp4) 32.4 ml/m\S\2 SV(MOD-sp2) 43.4 ml SI(MOD-sp2) 22.8 ml/m\S\2 SV(MOD-bp) 52.3 ml SI(MOD-bp) 27.5 ml/m\S\2 SV(sp4-el) 65.9 ml SI(sp4-el) 34.6 ml/m\S\2 SV(sp2-el) 50.0 ml SI(sp2-el) 26.2 ml/m\S\2 Doppler Measurements and Calculations MV E max dominique 87.8 cm/sec MV A max dominique 127.1 cm/sec MV E/A 0.69 MV dec time 0.14 sec Ao V2 max 142.4 cm/sec Ao max PG 8.1 mmHg Ao max PG (full) 4.3 mmHg LV V1 max PG 3.8 mmHg LV V1 max 97.0 cm/sec
--- NOTE | 2016-11-15 16:49 | Progress Note ---
Medicine Progress Note Date & Time of Visit: Nov 15, 2016 at 13:23. Subjective Pt was seen and examined Sitting at the edge of the bed comfortable with no distress Pt said that she feels better today She said that she walked with physical therapy today and her walking is better today compare to yesterday Pt would like to go home today refused to go to rehab for PT she denies any slurred speech, dizziness, vision changes, palpitation, chest pain Objective Last 8 Hrs Date Time Temp Pulse Resp B/P (MAP) Pulse Ox O2 Delivery O2 Flow Rate FiO2 11/15/16 10:43 36.9 91 20 146/75 (98) 95 Room Air 11/15/16 08:00 Room Air 11/15/16 07:15 36.7 69 20 182/81 (114) 97 Room Air Physical Exam: General- No acute distress Head- atraumatic Eyes- PERRL, EOMI ENT- oropharynx clear Neck- supple, no JVD Lungs- CTA B/L Heart- regular rhythm; no murmur Abdomen- normal bowel sounds, soft Extremities- no calf tenderness Neuro- alert, oriented x 3; PERRL, EOMI; no facial palsy; no dysarthria; finger to nose intact bilaterally Skin- warm & dry Laboratory Results: Last 24 Hours Test 11/15/16 06:27 White Blood Count 9.05 K/uL Red Blood Count 4.98 M/uL Hemoglobin 15.2 g/dL Hematocrit 42.9 % Mean Corpuscular Volume 86.1 fL Mean Corpuscular Hemoglobin 30.5 pg Mean Corpuscular Hemoglobin Concent 35.4 g/dl RDW Standard Deviation 43.9 fL RDW Coefficient of Variation 14.1 % Platelet Count 340 K/uL Mean Platelet Volume 9.4 fL Sodium Level 141 mmol/L Potassium Level 3.8 mmol/L Chloride Level 108 mmol/L Carbon Dioxide Level 26 mmol/L Anion Gap 7.0 mmol/L Blood Urea Nitrogen 16 mg/dl Creatinine 0.75 mg/dl Est Creatinine Clear Calc Drug Dose 73.1 ml/min Estimated GFR () 92.9 Estimated GFR (Non- 80.2 BUN/Creatinine Ratio 21.9 Random Glucose 106 mg/dl Calcium Level 9.0 mg/dl Triglycerides Level 120 mg/dl Cholesterol Level 226 mg/dl HDL Cholesterol 54 mg/dl LDL Cholesterol, Calculated 148 mg/dl VLDL Cholesterol, Calculated 24 mg/dl Cholesterol/HDL Ratio 4.2 Assessment & Plan Acute/Subacute Left frontoparietal infarct Present with Right foot drop on admission with no other associated symptoms CT head on admission Negative MRI head done showed multiple small foci restricted water diffusion within the left frontoparietal parasagittal cortex. Carotid Doppler showed minimal/mild plaque formation bilaterally. No significant stenosis. MRA of brain showed mild focal narrowing within the bilateral distal chemical equipment sales engineer and right carotid siphon Plavix was given continue plavix and aspirin Chol 226 LDL 148, continue statin No arrhythmia episode on tele Neuro consulted- Case discussed with Dr. Geronimo that recommended to continue plavix/aspirin/ statin Follow up with neurology in 2-3 weeks Pt will need a cardionet that can be arranged by her PCP or neurology. continue PT/OT ECHO showed: * Ejection Fraction = 65-70%. * There is moderate concentric left ventricular hypertrophy. * Grade I diastolic dysfunction, (abnormal relaxation pattern). * Injection of contrast documented no interatrial shunt. * No significant valvular pathology. HTN Allow permissive HTN in the setting of stroke Only received lorsatan 25mg today Resume home HCTZ/Losartan Monitor BP Dyslipidemia Starting on statin follow a low cholesterol diet check liver enzymes within 1 -2 week Sinus Tachycardia Resolved DVT Px on lovenox subq CODE STATUS FULL CODE Disposition Follow up with your primary care provider Dr. He on 11/20 @ 2 PM Consultants: Neuro Current Inpatient Medications: Current Inpatient Medications Medications (Trade) Dose Ordered Sig/Charline Route Start Time Stop Time Status Last Admin Dose Admin Enoxaparin Sodium (Lovenox Inj) 40 mg Q24H SC 11/14/16 21:00 12/14/16 20:59 11/14/16 20:50 40 MG Acetaminophen (Tylenol Tab) 650 mg Q4H PRN PO 11/14/16 15:00 12/14/16 14:59 Ondansetron HCl (Zofran Inj) 4 mg Q6H PRN IV 11/14/16 15:00 12/14/16 14:59 Miscellaneous (Iv Fluids Completed) 1 ea PRN PRN N/A 11/14/16 15:30 11/14/17 15:29 Multivitamins (Multivitamin Tab) 1 tab DAILY PO 11/15/16 09:00 12/15/16 08:59 11/15/16 08:54 1 TAB Clopidogrel Bisulfate (plAVix TAB) 75 mg QAM PO 11/15/16 09:00 12/15/16 08:59 11/15/16 08:53 75 MG Miscellaneous Information (Pharmacist Discharge Med Rec Consult) 1 ea UD PRN N/A 11/14/16 22:15 12/14/16 22:14 Lactated Ringer's 1,000 ml @ 75 mls/hr [id number] ONCE IV 11/15/16 00:30 11/15/16 13:49 11/15/16 01:30 75 MLS/HR Losartan Potassium (coZAAR TAB) 25 mg QAM PO 11/15/16 09:00 12/15/16 08:59 11/15/16 08:54 25 MG Atorvastatin Calcium (Lipitor Tab) 20 mg QAM PO 11/15/16 09:00 12/15/16 08:59 11/15/16 08:55 20 MG Aspirin (Ecotrin Tab) 81 mg QAM PO 11/15/16 09:00 12/15/16 08:59 11/15/16 08:54 81 MG
[2016-11-15] MEDS ORDERED: PLV75 PO (19:02)
[2016-11-15] MEDS ORDERED: LPT20 PO (19:02)
--- NOTE | 2016-11-15 19:12 | Discharge Instructions ---
Discharge Instructions Date of Service Nov 15, 2016. Admission Reason for Admission: Hypertensive Urgency Discharge Discharge Diagnosis / Problem: Acute/Subacute Left frontoparietal infarct, Dyslipidemia, Hypertension Discharge Goals Goal(s): Decrease discomfort, Improve function, Improve disease control Activity Recommendations Activity Limitations: resume your previous activity (as tolerated) . Instructions / Follow-Up Instructions / Follow-Up Follow up with your primary care provider on 11/20 @ [address] He Follow up with Neurology Dr. Geronimo in 2 to 3 weeks Neurology or your physician will arrange for a cardionet to monitor your heart Advised pt to consider outpatient Physical therapy Check liver enzymes in 1 to 2 weeks due to the statin Monitor blood pressure follow up a low salt and low cholesterol diet Script for Rolling walker with seat attached given to patient New Medications Plavix 75mg daily ( notify your physician if you develops any blood in your stool/urine or any abnormal bleeding) Atorvastatin 20mg daily Current Hospital Diet Patient's current hospital diet: AHA Diet (Heart Healthy) Discharge Diet Recommended Diet: AHA Diet (Heart Healthy) Pending Studies Studies pending at discharge: no Laboratory Results Lipid Panel Test 11/15/16 06:27 Range/Units Triglycerides Level 120 0-150 mg/dl Cholesterol Level 226 H 0-200 mg/dl HDL Cholesterol 54 mg/dl Cholesterol/HDL Ratio 4.2 LDL Cholesterol, Calculated 148 mg/dl Medical Emergencies . Who to Call and When: Medical Emergencies: If at any time you feel your situation is an emergency, please call 911 immediately. . Non-Emergent Contact Non-Emergency issues call your: Primary Care Provider Call Non-Emergent contact if: you have any medication questions . . "Provider Documentation" section prepared by Nelida Baez. . VTE Core Measure Inpt VTE Proph given/why not?: Enoxaparin (Lovenox)SQ
--- NOTE | 2016-11-15 23:45 | NEUROLOGY CONSULTATION ---
DATE OF CONSULTATION: 11/15/2016 REASON FOR CONSULTATION: Right leg weakness. HISTORY OF PRESENT ILLNESS: Mrs. Lopez is a 71-year-old right-handed female with hypertension. She has noted, over the last weeks, brief episodes of her right knee giving out without other neurologic symptoms. On the day of admission, she woke up, she could not move her right foot. She noticed a change in her gait. She, otherwise, noted no neurologic symptoms. There was no headache, change in vision, change in speech or language, difficulty with word finding, dizziness, one-sided weakness or numbness, other than in the lower leg. There was no back pain or leg pain. No fevers, chills, sweats, head or neck injury, chiropractic manipulation of the neck. She did have a colonoscopy in November 05. She was off the aspirin for one day. No abdominal pain, nausea, vomiting, diarrhea or urinary symptoms. CT of the head was negative. Lumbar CT, multilevel [id number]-[id number] spinal stenosis. MRI of the brain showed acute ischemic infarct within the left frontoparietal parasagittal cortex, consistent with acute infarct. The MRA of the head, mild focal narrowing of the distal fastener sewing machine operator bilaterally and a right carotid siphon. Carotid ultrasound, no significant stenosis. Electrocardiogram, sinus tachycardia. Echocardiogram, grade 1 diastolic dysfunction, no interatrial shunt, no valvular pathology. Last evening on admission, she was given IV antihypertensives and when she got to the floor, she transiently felt weaker in her right leg. LABORATORY DATA: White count 8.8, H&H 15.6/45 5, platelet count 3626. PT, PTT normal. Chemistry profile notable for random glucose of 112. Otherwise, unremarkable. Her LDL is 148. PAST MEDICAL HISTORY: Hypertension. SURGICAL HISTORY: Ovarian cystectomy, appendectomy. SOCIAL HISTORY: Remote smoker. She is a dental mortgage assistant. Occasionally drinks alcohol. FAMILY HISTORY: Coronary artery disease. ALLERGIES: None known. HOME MEDICATIONS: Aspirin, fish oil, Hyzaar, iodine, multiple vitamins, calcium. PHYSICAL EXAMINATION: The patient is awake and alert. There may be a very marginal dysarthria and/or some word finding difficulty, but if it is, it is minimal. Vital signs, 36.7, 82, 21, 152/83, 106, 94%. No carotid bruits. No heart murmurs. Heart is regular rate and rhythm. Lungs are clear. Abdomen is soft, nontender. . Her dorsalis pedis pulses are palpated in both feet. Straight leg raising is negative, Tinel's, negative, over the fibular head. Pupils are equal, round, reactive to light. Optic nerves unremarkable. Normal dillon, motility, facial sensation and symmetry. Speech and language are as above. Tongue is midline. Motor: There may be mild weakness of the right deltoid and right triceps, although there is no drift. There is mild weakness of the right iliopsoas, quads, hamstrings. The TA is less than antigravity. Gastroc is mildly weak. There is mild weakness of the tibialis posterior and peroneus longus. Reflexes are symmetric. Toes are downgoing. There is a relative decreased light touch below the right knee. Couqvx-iz-mgrs is normal. Nunp-sm-vpzj is mildly clumsy, consistent with her right lower extremity weakness. Her gait is with her right lower extremity externally rotated. IMPRESSION: Cortical infarct. Query embolic. Vasculature appearance is normal on MRA. PLAN: Aspirin and Plavix for 3 months and then Plavix alone. Lipid-lowering agents with a goal LDL of 70 or below. Avoid hypotension. Permissive hypertension. The patient will need a CardioNet as an outpatient and follow up with me 2 or 3 weeks post discharge. DONNA
--- NOTE | 2016-11-23 04:06 | Discharge Summary ---
Discharge Summary Date of Service Nov 23, 2016. Discharge Summary Admission Date: Nov 15, 2016 at 03:12 Discharge Date: Nov 15, 2016 Discharge Disposition: Home Principal Diagnosis: Acute/Subacute Left frontoparietal infarct Secondary Diagnoses/Problems: Dyslipidemia Hypertension Procedures: [~ rep ct add3]] CAROTID DOPPLER NECK ART HISTORY: Mental status change stroke COMPARISON: MRA 11/14/2016 TECHNIQUE: Real-time, grayscale, and color Doppler sonography of the carotid arteries was performed. Imaging reviewed in the transverse and longitudinal planes. All measurements were calculated based on NASCET criteria. FINDINGS: Antegrade flow is seen in the bilateral vertebral arteries. The brachial pressures are hemodynamically similar. Mild plaque formation bilaterally The peak systolic velocity within the right ICA is 96. The right systolic ratio is 1.2. The peak systolic velocity within the left ICA is 74. The left systolic ratio is 1.0. IMPRESSION: Minimal/mild plaque formation bilaterally. No significant stenosis. The above report was generated using voice recognition software. It may contain grammatical, syntax or spelling errors. Electronically signed by: Reji Sanchez M.D. 11/15/2016 8:10 AM Dictated Date/Time: 11/15/2016 8:09 AM MRI OF THE BRAIN WITHOUT CONTRAST CLINICAL HISTORY: intermittent slurred speech RIGHT FOOT DROP. COMPARISON STUDY: Noncontrast head CT dated 11/14/2016 FINDINGS: Sagittal T1, axial diffusion, proton density and T2 weighted axial, coronal FLAIR, and axial T1-weighted images were acquired. No intra or extra-axial mass lesions are visualized There are foci of restricted water diffusion within the left frontoparietal parasagittal cortex. These are consistent with acute/subacute infarcts.. There is no evidence of ventricular dilatation. Proton density T2-weighted and FLAIR images reveal moderate foci of increased T2 signal within the white matter, likely on a small vessel basis. There are old lacunar infarcts in the right basal ganglia. There are atrophic changes. There are no abnormal flow voids. IMPRESSION: Multiple small foci restricted water diffusion within the left frontoparietal parasagittal cortex. These are consistent with acute/subacute infarcts. Electronically signed by: Jose Luis Mack M.D. 11/15/2016 6:28 AM Dictated Date/Time: 11/15/2016 6:26 AM Brain MRA HISTORY: intermittent slurred speech TECHNIQUE: 3-D [id number] MRA of the brain was performed without contrast. COMPARISON STUDY: Head CT 11/14/2016. FINDINGS: Visualized intracranial internal carotid arteries, distal vertebral arteries, and basilar artery are widely patent. There is no significant stenosis, occlusion, or aneurysm seen within the bilateral ACAs, MCAs. Mild focal narrowing within the bilateral distal guest relations receptionist. Mild focal narrowing within the right carotid siphon due to the atherosclerotic plaque. IMPRESSION: Mild focal narrowing within the bilateral distal guest relations receptionist and right carotid siphon. Otherwise the remaining cerebral arteries show no significant stenosis, occlusion, or aneurysm. Electronically signed by: Srinivasa Sue M.D. 11/15/2016 7:03 AM Dictated Date/Time: 11/15/2016 6:59 AM [~ rep ct add3]] CT LUMBAR SPINE WITHOUT CT DOSE: 1251.23 mGy.cm CLINICAL HISTORY: right foot drop TECHNIQUE: Helical images were acquired in transverse plane. Reformatted sagittal and coronal images were reviewed. A dose lowering technique was utilized adhering to the principles of ALARA. CONTRAST: No contrast was administered COMPARISON STUDY: None. FINDINGS: L1-2 level: There is no evidence of significant disc bulge or focal herniation. There is no evidence of spinal or foraminal stenosis. L2-3 level: There are degenerative changes present. There is a circumferential disc bulge. There is mild spinal stenosis. There is minor bilateral foraminal narrowing. L3-4 level: There is a circumferential disc bulge present. There is moderate spinal stenosis. There is mild bilateral foraminal narrowing. L4-5 level: There is a circumferential disc bulge present. There is minor spinal stenosis present. There is mild bilateral foraminal narrowing L5-S1 level: There is no evidence of significant disc bulge or focal herniation. There is no evidence of spinal or foraminal stenosis. No acute fractures or subluxations are visualized. There is discogenic endplate sclerosis the L2-3 and L4-5 levels. Several Schmorl's nodes are visualized. IMPRESSION: 1. No acute fractures or traumatic subluxations identified 2. Multilevel spondylitic changes. There is mild spinal stenosis the L2-3 level, there is moderate spinal stenosis the L3-4 level, and there is mild spinal stenosis at the L4-5 level. There is bilateral foraminal narrowing at the L2-3, L3-4 level and L4-5 levels. Electronically signed by: Jose Luis Mack M.D. 11/14/2016 1:14 PM Dictated Date/Time: 11/14/2016 1:[address] HEAD WITHOUT CONTRAST (CT) CLINICAL HISTORY: right foot drop COMPARISON STUDY: No previous studies for comparison. TECHNIQUE: Axial CT of the brain is performed from the vertex to the skull base. IV contrast was not administered for this examination. A dose lowering technique was utilized adhering to the principles of ALARA. CT DOSE: 614.27 mGy.cm FINDINGS: No intra or extra-axial mass lesions are visualized. There is no CT evidence of acute cortical infarction. There is no evidence of midline shift. There is no acute hemorrhage. No calvarial fractures are visualized. There are patchy white matter hypodensities likely on a small vessel basis. 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 There is no evidence of acute sinusitis IMPRESSION: No acute intracranial findings Electronically signed by: Jose Luis Mack M.D. 11/14/2016 1:07 PM Dictated Date/Time: 11/14/2016 1:06 PM Consultations: Neuro Medication Reconciliation New Medications: Atorvastatin (Atorvastatin Calcium) 20 Mg Tab 20 MG PO QAM for 30 Days, #30 TAB Clopidogrel Bisulfate (Clopidogrel) 75 Mg Tab 75 MG PO QAM for 30 Days, #30 TAB Continued Medications: Aspirin (Aspirin EC Low Dose) 81 Mg Ectab 81 MG PO DAILY Fish Oil ([place]-3) 1 Ea Cap 4 CAP PO DAILY, CAP Hctz/Losartan (Hyzaar 12.5MG/50MG) Tab 1 TAB PO DAILY for 30 Days, #30 TAB 5 Refills Iodine (Bulk) (Iodine) 1 Mis Mis 2 TAB PO DAILY Multivitamin (Multivitamin) Tab 1 TAB PO DAILY, TAB [calcium] () 1250 MG PO DAILY Admission Information HPI (per Admitting provider): 71 year female who presents to the ER with right foot drop. Patient reports that over the past couple of weeks she has noticed her right knee giving out on her. She denies any pain in the leg. She denies any injury or trauma. She wore a brace on her leg throughout the night. When she woke up this morning she reports she could not move her right foot. She reports sensation is intact to the foot. She was also able to walk however her foot was dragging. She denies any other unilateral weakness, numbness, or tingling. She denies any headache, blurred vision, slurred speech, drooling, or difficulty swallowing. No chest pain, shortness of breath, lightheadedness, dizziness, diaphoresis, or syncopal events. She denies fever and chills. No abdominal pain, nausea, vomiting, or diarrhea. She denies urinary symptoms. In the ER, patient's BP was found to be elevated at 203/109. Head CT is negative for acute findings. Lumbar CT is showing multilevel mild-moderate spinal stenosis. Physical Exam (per Admitting): General Appearance: no apparent distress Head: normocephalic, atraumatic Eyes: normal inspection, PERRL, EOMI, sclerae normal ENT: hearing grossly normal Neck: supple, no JVD Respiratory/Chest: lungs clear, normal breath sounds, no respiratory distress Cardiovascular: regular rate, rhythm, no edema, normal peripheral pulses Abdomen/GI: normal bowel sounds, non tender, soft Extremities/Musculoskelatal: + pertinent finding (+ right foot drop) Neurologic/Psych: alert, oriented x 3, + pertinent finding (right foot drop noted; 5/5 strength noted to BLLE with the exception of inability to preform right pedal push and pull; no other focal deficits noted) Skin: normal color, warm/dry Hospital Course Acute/Subacute Left frontoparietal infarct Present with Right foot drop on admission with no other associated symptoms CT head on admission Negative MRI head done showed multiple small foci restricted water diffusion within the left frontoparietal parasagittal cortex. Carotid Doppler showed minimal/mild plaque formation bilaterally. No significant stenosis. MRA of brain showed mild focal narrowing within the bilateral distal guest relations receptionist and right carotid siphon Plavix was given continue plavix and aspirin Chol 226 LDL 148, continue statin No arrhythmia episode on tele Neuro consulted- Case discussed with Dr. Geronimo that recommended to continue plavix/aspirin/ statin Follow up with neurology in 2-3 weeks Pt will need a cardionet that can be arranged by her PCP or neurology. continue PT/OT ECHO showed: * Ejection Fraction = 65-70%. * There is moderate concentric left ventricular hypertrophy. * Grade I diastolic dysfunction, (abnormal relaxation pattern). * Injection of contrast documented no interatrial shunt. * No significant valvular pathology. HTN Allow permissive HTN in the setting of stroke Only received lorsatan 25mg today Resume home HCTZ/Losartan Monitor BP Dyslipidemia Starting on statin follow a low cholesterol diet check liver enzymes within 1 -2 week Sinus Tachycardia Resolved DVT Px on lovenox subq CODE STATUS FULL CODE Disposition Follow up with your primary care provider Dr. He on 11/20 @ 2 PM Total time spent on discharge = 35 minutes This includes examination of the patient, discharge planning, medication reconciliation, and communication with other providers. Discharge Instructions Discharge Instructions Date of Service Nov 15, 2016. Admission Reason for Admission: Hypertensive Urgency Discharge Discharge Diagnosis / Problem: Acute/Subacute Left frontoparietal infarct, Dyslipidemia, Hypertension Discharge Goals Goal(s): Decrease discomfort, Improve function, Improve disease control Activity Recommendations Activity Limitations: resume your previous activity (as tolerated) . Instructions / Follow-Up Instructions / Follow-Up Follow up with your primary care provider on 11/20 @ [address] He Follow up with Neurology Dr. Geronimo in 2 to 3 weeks Neurology or your physician will arrange for a cardionet to monitor your heart Advised pt to consider outpatient Physical therapy Check liver enzymes in 1 to 2 weeks due to the statin Monitor blood pressure follow up a low salt and low cholesterol diet Script for Rolling walker with seat attached given to patient New Medications Plavix 75mg daily ( notify your physician if you develops any blood in your stool/urine or any abnormal bleeding) Atorvastatin 20mg daily Current Hospital Diet Patient's current hospital diet: AHA Diet (Heart Healthy) Discharge Diet Recommended Diet: AHA Diet (Heart Healthy) Pending Studies Studies pending at discharge: no Laboratory Results Lipid Panel Test 11/15/16 06:27 Range/Units Triglycerides Level 120 0-150 mg/dl Cholesterol Level 226 H 0-200 mg/dl HDL Cholesterol 54 mg/dl Cholesterol/HDL Ratio 4.2 LDL Cholesterol, Calculated 148 mg/dl Medical Emergencies . Who to Call and When: Medical Emergencies: If at any time you feel your situation is an emergency, please call 911 immediately. . Non-Emergent Contact Non-Emergency issues call your: Primary Care Provider Call Non-Emergent contact if: you have any medication questions . . "Provider Documentation" section prepared by Nelida Baez. . VTE Core Measure Inpt VTE Proph given/why not?: Enoxaparin (Lovenox)SQ Additional Copies To Trudi He M.D. (MEDICAL)
== END 2016-11-15 19:28 | disposition home health service (06) | DRG 66 ==
LOC: C.EDB 11:31 → C.2T 15:03 → ENRESERV 15:30 → OBSVTOIN 11-15 03:12
PROVIDERS: ADMIT Internal Medicine; ATTEND Internal Medicine
DX: I63.9 Cerebral infarction, unspecified (principal); M21.371 Foot drop, right foot; I16.0 Hypertensive urgency; R47.81 Slurred speech; I10 Essential (primary) hypertension; R00.0 Tachycardia, unspecified; Z82.49 Family history of ischemic heart disease and other diseases of the circulatory system; Z87.891 Personal history of nicotine dependence; Z79.82 Long term (current) use of aspirin

== ENCOUNTER 2020-07-15 18:23 | Inpatient (IN) ==
--- OUTSIDE RECORDS SUMMARY | 2020-07-15 18:30 | External Medical Summary | Continuity of Care Document ---
:1945 Author Name Josefina Velez Address Unavailable Unavailable , Care Team Providers Name Role Phone Gwen Saldaña [email or web address] PCP, UNKNOWN Unavailable Unavailable Problems Active medical history not documented Allergies and Adverse Reactions Allergy history not documented Medications Medications not documented Procedures Procedures not documented Immunizations Immunizations not documented Plan of Treatment Planned Observations Planned Goals not documented Results No Known Results Results not documented
[2020-07-15] MEDS ORDERED: ONDANSETRON INJ 2 MG/ML 2 ML VIAL IV STA (18:40)
[2020-07-15] MEDS ORDERED: MoRPHine SULFATE 4 MG/ML 1 ML CARP\\VIAL IV STA ×2 (18:40→21:13)
--- NOTE | 2020-07-15 18:48 | Emergency Department Note ---
History of Present Illness General Chief complaint: Syncope Stated complaint: R hip pain Time Seen by Provider: 07/15/20 18:31 Source: patient History of Present Illness Provider complaint: Right hip pain and syncope Onset (ago): day(s) Location: hip and right Radiation: non-radiation Pain Consistency: + constant Maximum Pain Intensity: 10 Quality: + sharp Exacerbated By: + movement Associated symptoms: + syncope; no chest pain, no cough, no fever/chills, no headaches, no nausea/vomiting and no shortness of breath This is a 75-year-old female who had right hip surgery on July 04 in [place] presenting with right hip pain. The patient stated that she has been having pain since her surgery but has not taken any medications because she does not like taking pills. She was eating breakfast yesterday and had a syncopal episode. She did not have any symptoms prior to this and states that she was just eating breakfast and then found herself on the floor. She did not go to the hospital but had an appointment to see orthopedic doctor in [place] so she went there. She mentions she had a syncopal episode at that time. He did do a x-ray of her hip and told her that there was no acute abnormality. She is persistently having pain to that hip and so comes here for evaluation. She states that she has not short of breath although she has a pulse ox of 86 on room air. She denies any chest or back pain. She has no headache, neck pain, abdominal pain, cough or cold symptoms, vomiting, diarrhea, black or bloody stools or urinary symptoms. She has noticed increased swelling to the right leg. Allergies Allergy/AdvReac Type Severity Reaction Status Date / Time No Known Allergies Allergy Unverified 11/14/16 15:09 Past Med/Surg History Medical History CVA (cerebral vascular accident) Hypertension Surgical History History of appendectomy Social History Smoking Status: Never smoker Preferred Language: Belarusian Feels Safe at Home: Yes Review of Systems See HPI for pertinent positives & negatives. and A total of 10 systems reviewed and were otherwise negative Physical Exam Vital Signs Vital Signs - 24 hr 07/15/20 18:30 07/15/20 18:32 07/15/20 18:50 Temperature 37 C Temperature Source Oral Pulse Rate 101 H 101 H Pulse Rate from SpO2 Sensor 102 H Respiratory Rate 22 22 18 Respiratory Effort / Characteristics Non-Labored Respiratory Depth Normal Blood Pressure 160/63 H 160/63 H Blood Pressure Mean 95 95 Pulse Oximetry 92 86 L 91 Oxygen Delivery Method Nasal Cannula Room Air Nasal Cannula Oxygen Flow Rate 2 2 Sepsis Recent Fever Within 48 Hours No Sepsis New/Unexplained Change in Mental Status No Sepsis Action Taken by Nursing Physician Notified 07/15/20 19:25 07/15/20 19:30 07/15/20 20:00 Temperature Temperature Source Pulse Rate 98 H 100 H 85 Pulse Rate from SpO2 Sensor 98 H 85 Respiratory Rate 24 24 32 H Respiratory Effort / Characteristics Respiratory Depth Blood Pressure 150/65 H 141/61 H Blood Pressure Mean 93 87 Pulse Oximetry 94 94 94 Oxygen Delivery Method Nasal Cannula Nasal Cannula Nasal Cannula Oxygen Flow Rate 2 2 2 Sepsis Recent Fever Within 48 Hours Sepsis New/Unexplained Change in Mental Status Sepsis Action Taken by Nursing 07/15/20 20:30 07/15/20 21:30 Temperature Temperature Source Pulse Rate 92 H 96 H Pulse Rate from SpO2 Sensor 92 H 97 H Respiratory Rate 35 H 18 Respiratory Effort / Characteristics Respiratory Depth Blood Pressure 149/57 H 137/85 Blood Pressure Mean 87 102 Pulse Oximetry 92 94 Oxygen Delivery Method Nasal Cannula Nasal Cannula Oxygen Flow Rate 2 2 Sepsis Recent Fever Within 48 Hours Sepsis New/Unexplained Change in Mental Status Sepsis Action Taken by Nursing Constitutional: Vital signs reviewed. Pulse ox is 91% on 2 L. Eyes: Pupils are equal round reactive to light. Conjunctiva are noninjected. ENT: Pharynx is clear without erythema or exudate. Mucous membranes are moist. Neck supple without meningeal signs. Respiratory: Clear to auscultation bilaterally. Breath sounds are equal bilaterally. Cardiovascular: Mildly tachycardic. Heart rate 101. GI: Soft, nondistended and nontender. Bowel sounds are present. Musculoskeletal: Right lower extremity edema with normal distal cap refill. Tenderness over the right hip without shortening. The incision is clean dry intact without erythema or discharge. Integumentary: No cyanosis. or jaundice. Neurologic: The patient is awake and alert. Cranial nerves II-XII are intact. Motor is 5 out of 5 all extremities, although difficult to assess right proximal lower extremity due to pain. Sensation is intact to light touch all extremities. Normal speech. No pronator drift. No limb ataxia in the upper extremities. Psychiatric: Normal affect. Course Administered Medications Discontinued Medications Dexamethasone Sodium Phosphate (DexamethasonePf 10 Mg/Ml Vial) 6 mg IV NOW ONE Stop: 07/15/20 21:41 Last Admin: 07/15/20 22:29 Dose: 6 mg Documented by: [id number] Ioversol (Optiray 350 500ml) 106 ml IV ONCE ONE Stop: 07/15/20 21:02 Last Admin: 07/15/20 21:03 Dose: 106 ml Documented by: [id number] Morphine Sulfate (Morphine Sulfate 4 Mg/Ml 1 Ml Carp\Vial) 4 mg IV NOW STA Stop: 07/15/20 18:41 Last Admin: 07/15/20 19:24 Dose: 4 mg Documented by: [id number] Morphine Sulfate (Morphine Sulfate 4 Mg/Ml 1 Ml Carp\Vial) 4 mg IV NOW STA Stop: 07/15/20 21:14 Last Admin: 07/15/20 21:19 Dose: 4 mg Documented by: [id number] Ondansetron HCl (Ondansetron Inj 2 Mg/Ml 2 Ml Vial) 4 mg IV NOW STA Stop: 07/15/20 18:41 Last Admin: 07/15/20 19:24 Dose: 4 mg Documented by: [id number] Critical Care Time Critical Care Time: Yes Total Critical Care Time: 35 I have personally spent approximately 35 minutes of critical care time in the direct management of this patient. This includes bedside care, interpretation of diagnostic studies, and testing, discussion with consultants, patient, and family members, and other required patient management activities. These minutes are in excess of all separately billable procedures. Medical Decision Making Differential Diagnosis Syncope, pulmonary embolus, DVT, postoperative pain, anemia, dysrhythmia, metabolic derangement Medical Records Attestation: I reviewed the patient's medical records. I did perform a limited focused review of portions of the patient's old chart on the electronic medical record. The patient has had no recent pertinent visits to this hospital. Home Medications Current Medication List: was personally reviewed by me Laboratory Data Attestation: I reviewed the patient's lab results. Result diagrams: 07/15/20 18:50 04/16/21 18:50 Lab Results 07/15/20 07/15/20 07/15/20 Range/Units 18:50 18:50 19:31 WBC 14.38 H (4.8-10.8) K/uL RBC 4.14 L (4.2-5.4) M/uL Hgb 12.5 (12.0-16.0) g/dL Hct 35.8 L (37-47) % MCV 86.5 (80-100) fL MCH 30.2 (25-34) pg MCHC 34.9 (32-36) g/dL RDW Std Deviation 44.0 (36.4-46.3) fL RDW Coeff of Savita 13.9 (11.5-14.5) % Plt Count 539 H (130-400) K/uL MPV 9.4 (7.4-10.4) fL Immature Gran % (Auto) 0.4 % Neut % (Auto) 88.1 % Lymph % (Auto) 6.8 % Travis % (Auto) 4.6 % Eos % (Auto) 0.0 % Baso % (Auto) 0.1 % Neut # (Auto) 12.67 H (1.4-6.5) K/uL Lymph # (Auto) 0.98 L (1.2-3.4) K/uL Travis # (Auto) 0.66 H (0.11-0.59) K/uL Eos # (Auto) 0.00 (0-0.5) K/uL Baso # (Auto) 0.01 (0-0.2) K/uL Immature Gran # (Auto) 0.06 H (0.00-0.02) K/uL PT (9.0-12.0) Seconds INR (0.9-1.1) APTT (21.0-31.0) Seconds PTT Ratio Sodium 130 L (136-145) mmol/L Potassium 3.9 (3.5-5.1) mmol/L Chloride 97 L (98-107) mmol/L Carbon Dioxide 22 (21-32) mmol/L Anion Gap 10.0 (3-11) BUN 41 H (7-18) mg/dl Creatinine 1.38 H (0.6-1.2) mg/dl Est Cr Clr Drug Dosing Not Reportable Est GFR ( Amer) 43.2 Est GFR (Non-Af Amer) 37.3 BUN/Creatinine Ratio 29.4 H (10-20) Glucose 195 H (70-99) mg/dl Calcium 8.5 (8.5-10.1) mg/dl Magnesium 1.9 (1.8-2.4) mg/dl Total Bilirubin 0.4 (0.2-1) mg/dl AST 54 H (15-37) U/L ALT 42 (12-78) U/L Alkaline Phosphatase 80 (45-117) U/L Troponin I < 0.015 (0-0.045) ng/ml Total Protein 7.0 (6.4-8.2) gm/dl Albumin 2.6 L (3.4-5.0) gm/dl Globulin 4.4 H (2.5-4.0) gm/dl Albumin/Globulin Ratio 0.6 L (0.9-2) TSH 1.580 (0.300-4.500) uIu/ml Specimen Hemolysis COVID-19 Eval Order [facility]FluRsv at [facility] SARS-CoV-2 (PCR) (Negative) Influenza Type A (PCR) (Neg) Influenza Type B (PCR) (Neg) RSV (RT-PCR) (Neg) 07/15/20 07/15/20 Range/Units 19:31 20:35 WBC (4.8-10.8) K/uL RBC (4.2-5.4) M/uL Hgb (12.0-16.0) g/dL Hct (37-47) % MCV (80-100) fL MCH (25-34) pg MCHC (32-36) g/dL RDW Std Deviation (36.4-46.3) fL RDW Coeff of Savita (11.5-14.5) % Plt Count (130-400) K/uL MPV (7.4-10.4) fL Immature Gran % (Auto) % Neut % (Auto) % Lymph % (Auto) % Travis % (Auto) % Eos % (Auto) % Baso % (Auto) % Neut # (Auto) (1.4-6.5) K/uL Lymph # (Auto) (1.2-3.4) K/uL Travis # (Auto) (0.11-0.59) K/uL Eos # (Auto) (0-0.5) K/uL Baso # (Auto) (0-0.2) K/uL Immature Gran # (Auto) (0.00-0.02) K/uL PT 9.7 (9.0-12.0) Seconds INR 1.0 (0.9-1.1) APTT 30.1 (21.0-31.0) Seconds PTT Ratio 1.1 Sodium (136-145) mmol/L Potassium (3.5-5.1) mmol/L Chloride (98-107) mmol/L Carbon Dioxide (21-32) mmol/L Anion Gap (3-11) BUN (7-18) mg/dl Creatinine (0.6-1.2) mg/dl Est Cr Clr Drug Dosing Est GFR ( Amer) Est GFR (Non-Af Amer) BUN/Creatinine Ratio (10-20) Glucose (70-99) mg/dl Calcium (8.5-10.1) mg/dl Magnesium (1.8-2.4) mg/dl Total Bilirubin (0.2-1) mg/dl AST (15-37) U/L ALT (12-78) U/L Alkaline Phosphatase (45-117) U/L Troponin I (0-0.045) ng/ml Total Protein (6.4-8.2) gm/dl Albumin (3.4-5.0) gm/dl Globulin (2.5-4.0) gm/dl Albumin/Globulin Ratio (0.9-2) TSH (0.300-4.500) uIu/ml Specimen Hemolysis COVID-19 Eval Order SARS-CoV-2 (PCR) POSITIVE A* (Negative) Influenza Type A (PCR) Negative (Neg) Influenza Type B (PCR) Negative (Neg) RSV (RT-PCR) Negative (Neg) Imaging Data Attestation: I personally reviewed and interpreted this imaging study as follows: My Impression: X-ray of the right hip and pelvis per my interpretation shows no periprosthetic fracture or dislocation of the hardware. Radiologist's Impression: Preliminary Findings Only See Final Report For Complete Findings CT HEAD: No ICH, mass effect or edema. No skull fracture. Involutional changes with small vessel disease and old lacunar infarcts. Radiologist: Farhana Kwong M.D. Study ready at 21:21 and initial results transmitted at 21:23 Preliminary Findings Only See Final Report For Complete Findings CT C SPINE: No evidence of fracture or malalignment. Degenerative changes. Thyroid nodule (s) Radiologist: Farhana Kwong M.D. Study ready at 21:18 and initial results transmitted at 21:23 Preliminary Findings Only See Final Report For Complete Findings CTA CHEST: Poor opacification of the pulmonary arteries. No apparent saddle embolus. Bilateral pulmonary infiltrates. No acute traumatic findings. Mild mediastinal and hilar adenopathy. Mild cardiomegaly and small pericardial effusion. Radiologist: Farhana Kwong M.D. Study ready at 21:18 and initial results transmitted at 21:33 ECG Data Attestation: I personally reviewed and interpreted this ECG as follows: Indication: + syncope Rate (beats per minute): 94 Rhythm: + normal sinus ECG [place]: + Normal ECG ST segments: + Nonspecific ST abnormalities ECG Findings: no PVCs Head Trauma GCS Score: 15 MDM Narrative I did evaluate the patient as noted above. The patient is presenting with right hip pain. She just had surgery on the fifth and was seen by her orthopedic doctor yesterday who stated that there was no acute abnormality with her hip. She also had a syncopal episode yesterday as well and on presentation here she is hypoxemic and tachycardic. She denies any prior history of DVT or PE. IV access was established. I did treat her with IV morphine and Zofran. She was placed on supplemental oxygen via nasal cannula. I did place an order for arvind nuous cardiac monitoring. The monitor showed sinus tachycardia at a rate of 101 bpm. I did order and personally review the patient's 12-lead EKG as described above. She has nonspecific ST changes. No ST elevations. No dysrhythmia. I did order and personally reviewed the images of the patient's right hip and pelvis x-rays as described above. There is no evidence of periprosthetic fracture or banda rdware displacement. I did order and review the patient's blood work as noted in the electronic medical record. Her white count is 14,000. Hemoglobin is 12.5 and platelet count is 539. Sodium is 130. Creatinine is 1.38. Troponin is negative. I have no old labs to compare this with. Covid testing came back positive. She was placed in respiratory isolation. I did order a CT of the head and cervical spine and CT angiogram of the chest. I did review the images myself as well as the radiology report as described above. CT of the head and cervical spine shows no acute abnormality. CT of the chest shows no obvious pulmonary embolism. She does have a multifocal pneumonia consistent with COVID- 19. I also ordered a Doppler ultrasound of the right lower extremity. This is currently pending. The patient had continued pain and was given another dose of morphine IV after which she felt better. I did discuss the test results with her. She was started on Decadron 6 mg IV here. I did discuss case with the sample case porter and the hospitalist was informed. Impression & Plan Multifocal pneumonia, COVID-19, Hypoxemia, Syncope, Elevated serum creatinine, Acute pain of right hip Discharge Plan Visit Data Chief Complaint: Syncope Stated Complaint: R hip pain ED Provider: Kaden Flores Discharge Problem: Multifocal pneumonia, COVID-19, Hypoxemia, Syncope, Elevated serum creatinine, Acute pain of right hip Patient Disposition: Being Evaluated by Hospitalist Forms Stand Alone Forms: [facility] Referrals Referrals: Jesus He MD [Primary Care Provider] - Discharge Problem: Syncope Qualifiers: Syncope type: unspecified Qualified Code(s): R55 - Syncope and collapse
[2020-07-15 19:09] LABS: Hematocrit (blood only) 35.8 % (37-47); Hemoglobin 12.5 g/dL (12.0-16.0); Mean Corpuscular Hemoglobin 30.2 pg (25-34); Mean Corpuscular Hgb Conc 34.9 g/dL (32-36); Mean Corpuscular Volume 86.5 fL (80-100); Mean Platelet Volume 9.4 fL (7.4-10.4); Platelet Count 539 K/uL (130-400); RDW Coefficient of Variation 13.9 % (11.5-14.5); Red Blood Count 4.14 M/uL (4.2-5.4); White Blood Count 14.38 K/uL (4.8-10.8)
[2020-07-15 19:28] LABS: Alanine Aminotransferase 42 U/L (12-78); Albumin Level 2.6 gm/dl (3.4-5.0); Aspartate Aminotransferase 54 U/L (15-37); BUN Creatinine Ratio 29.4 (10-20); Blood Urea Nitrogen 41 mg/dl (7-18); Calcium 8.5 mg/dl (8.5-10.1); Carbon Dioxide 22 mmol/L (21-32); Chloride 97 mmol/L (98-107); Est GFR (African American) 43.2; Est GFR (Non-African American) 37.3; Glucose 195 mg/dl (70-99); Magnesium 1.9 mg/dl (1.8-2.4); Potassium 3.9 mmol/L (3.5-5.1); Sodium 130 mmol/L (136-145)
[2020-07-15 19:40] LABS: Basophils # (auto) 0.01 K/uL (0-0.2); Basophils % (auto) 0.1 %; Immature Granulocytes # (auto) 0.06 K/uL (0.00-0.02); Immature Granulocytes % (auto) 0.4 %; Lymphocytes # (auto) 0.98 K/uL (1.2-3.4); Lymphocytes % (auto) 6.8 %; Monocytes # (auto) 0.66 K/uL (0.11-0.59); Monocytes % (auto) 4.6 %; Neutrophils # (auto) 12.67 K/uL (1.4-6.5); Neutrophils % (auto) 88.1 %
[2020-07-15 19:44] LABS: Albumin Globulin Ratio 0.6 (0.9-2); Alkaline Phosphatase 80 U/L (45-117); Bilirubin,Total 0.4 mg/dl (0.2-1); Globulin 4.4 gm/dl (2.5-4.0); Troponin I < 0.015 ng/ml (0-0.045)
[2020-07-15 20:55] LABS: Influenza A virus by PCR Negative (Neg); Influenza B virus by PCR Negative (Neg); RSV by PCR Negative (Neg)
[2020-07-15 20:55] LABS: Partial Thromboplastin Ratio 1.1; Partial Thromboplastin Time 30.1 Seconds (21.0-31.0); Prothrombin Time 9.7 Seconds (9.0-12.0)
[2020-07-15] MEDS ORDERED: OPTIRAY 350 500ml IV ONE (21:01)
[2020-07-15 21:08] LABS: SARS CoV2 RNA(COVID-19) InHosp POSITIVE (Negative)
[2020-07-15] MEDS ORDERED: dexAMETHasone**PF** 10 MG/ML VIAL IV ONE (21:40)
--- NOTE | 2020-07-15 22:29 | History & Physical Report ---
Date of Service July 15, 2020 Assessment & Plan (1) Pneumonia due to COVID-19 virus: Multifocal pneumonia due to COVID-19 virus with hypoxia- Dexamethasone 6 mg IV every morning Remdesivir IV per protocol Zinc sulfate 220 mg p.o. every morning Vitamin D 5000 international units p.o. every morning Albuterol HFA 2 puffs 4 times daily, and every 2 hours as needed Nasal cannula oxygen, titrate to keep pulse ox around 94% NSS + KCl 20 mEq at 60 mils per hour Lovenox 50 mg subcu every 12 hours Present on Admission?: Yes (2) Multifocal pneumonia: See above Present on Admission?: Yes (3) Hypoxemia: See above Present on Admission?: Yes (4) Syncope: Likely secondary to COVID-[address] CT cervical spine negative for acute event Present on Admission?: Yes (5) Hyperglycemia: Glucose 195 upon admission. Placed on Accu-Cheks before meals and at bedtime with NovoLog coverage per scale Check hemoglobin A1c Present on Admission?: Yes History of Present Illness Chief Complaint: The patient presents to the emergency department with complaint of a syncopal episode, and persistent right hip pain status post surgery at [place] on July 04 Primary Care Provider: Jesus He MD The patient is a 75-year-old female with a past medical history including CVA, hypertension, ovarian cystectomy, appendectomy, right hip pain post surgery and obesity. Patient presented to the emergency department with report of a syncopal episode while eating breakfast yesterday. She did not go to the hospital that day, but did have an appointment to see orthopedist in [place] and so she went there. She was told that her x-ray of her hip was normal, and that she should come to the ED here for assessment. Work-up in the emergency department at [facility] this evening revealed a pulse ox on room air of 86%, a positive COVID-19 test, CT scan of cervical spine which negative except for thyroid nodules, CT of head which was negative except for old lacunar infarcts, and a chest x-ray/CTA of chest which showed multifocal pneumonia without pulmonary emboli. Allergies Allergy/AdvReac Type Severity Reaction Status Date / Time No Known Allergies Allergy Unverified 11/14/16 15:09 Past Med/Surg History Medical History CVA (cerebral vascular accident) Hypertension Surgical History History of appendectomy Social History Smoking Status: Never smoker Hx Alcohol Use: No Hx Substance Use: No Preferred Language: Spanish Communication Ability: Effective Beliefs That Will Affect Care: None Current Living Situation: Alone Feels Safe at Home: Yes Safety Concerns: Feels Safe At This Time Assistive Devices: None Review of Systems Review of Systems: The patient denies chest pain, palpitations, cough, lower extremity swelling, sore throat, fevers, chills, sweats, nausea, vomiting, diarrhea , constipation, abdominal pain, pelvic pain, blood in urine or stool, dysuria, urinary frequency or urgency, lightheadedness, dizziness, headache, memory loss, loss of consciousness, rash, abnormal bruising or bleeding, focal or generalized weakness, numbness or tingling in arms, generalized arthralgias or myalgias, back or neck pain, or night sweats. The review of systems is otherwise negative other than for that already noted above, and at least 10 systems have been reviewed. Physical Exam Physical Exam: The patient is awake, alert and oriented 3, well developed and well nourished, normocephalic and atraumatic, lying in bed and in no acute distress. HEENT--PERRL, EOMI, mucous membranes and oropharynx normal. Neck--supple. No JVD. No bruits. Thyroid normal, trachea midline, no adenopathy. Heart--normal S1 and S2. No murmurs, rubs or gallops. Lungs--coarse breath sounds bilaterally. No respiratory distress, no accessory muscle use. Abdomen--normal bowel sounds and soft. Nontender. Nondistended. Mildly obese. Extremities--no cyanosis or clubbing. No edema. Dermatologic--normal skin turgor, normal color, no abnormal lymph nodes, no rash. Neurologic--cranial nerves II through XII grossly intact. Rheumatologic--normal range of motion Psychiatric--normal affect. Results & Data Results & Data ([facility]) Vital Signs (Past 12 Hours) Vital Signs Temp Pulse Resp BP Pulse Ox 07/15/20 21:30 96 H 18 137/85 94 07/15/20 20:30 92 H 35 H 149/57 H 92 07/15/20 20:00 85 32 H 141/61 H 94 07/15/20 19:30 100 H 24 150/65 H 94 07/15/20 19:25 98 H 24 94 07/15/20 18:50 18 91 07/15/20 18:32 98.6 F 101 H 22 160/63 H 86 L 07/15/20 18:30 101 H 22 160/63 H 92 Laboratory Results Laboratory Results WBC 14.38 K/uL (4.8-10.8) H 07/15/20 18:50 RBC 4.14 M/uL (4.2-5.4) L 07/15/20 18:50 Hgb 12.5 g/dL (12.0-16.0) 07/15/20 18:50 Hct 35.8 % (37-47) L 07/15/20 18:50 MCV 86.5 fL (80-100) 07/15/20 18:50 MCH 30.2 pg (25-34) 07/15/20 18:50 MCHC 34.9 g/dL (32-36) 07/15/20 18:50 RDW Std Deviation 44.0 fL (36.4-46.3) 07/15/20 18:50 RDW Coeff of Savita 13.9 % (11.5-14.5) 07/15/20 18:50 Plt Count 539 K/uL (130-400) H 07/15/20 18:50 MPV 9.4 fL (7.4-10.4) 07/15/20 18:50 Immature Gran % (Auto) 0.4 % 07/15/20 18:50 Neut % (Auto) 88.1 % 07/15/20 18:50 Lymph % (Auto) 6.8 % 07/15/20 18:50 [place] % (Auto) 4.6 % 07/15/20 18:50 Eos % (Auto) 0.0 % 07/15/20 18:50 Baso % (Auto) 0.1 % 07/15/20 18:50 Neut # (Auto) 12.67 K/uL (1.4-6.5) H 07/15/20 18:50 Lymph # (Auto) 0.98 K/uL (1.2-3.4) L 07/15/20 18:50 [place] # (Auto) 0.66 K/uL (0.11-0.59) H 07/15/20 18:50 Eos # (Auto) 0.00 K/uL (0-0.5) 07/15/20 18:50 Baso # (Auto) 0.01 K/uL (0-0.2) 07/15/20 18:50 Immature Gran # (Auto) 0.06 K/uL (0.00-0.02) H 07/15/20 18:50 PT 9.7 Seconds (9.0-12.0) 07/15/20 20:35 INR 1.0 (0.9-1.1) 07/15/20 20:35 APTT 30.1 Seconds (21.0-31.0) 07/15/20 20:35 PTT Ratio 1.1 07/15/20 20:35 Sodium 130 mmol/L (136-145) L 07/15/20 18:50 Potassium 3.9 mmol/L (3.5-5.1) 07/15/20 18:50 Chloride 97 mmol/L (98-107) L 07/15/20 18:50 Carbon Dioxide 22 mmol/L (21-32) 07/15/20 18:50 Anion Gap 10.0 (3-11) 07/15/20 18:50 BUN 41 mg/dl (7-18) H 07/15/20 18:50 Creatinine 1.38 mg/dl (0.6-1.2) H 07/15/20 18:50 Est Cr Clr Drug Dosing Not Reportable 07/15/20 18:50 Est GFR ( Amer) 43.2 07/15/20 18:50 Est GFR (Non-Af Amer) 37.3 07/15/20 18:50 BUN/Creatinine Ratio 29.4 (10-20) H 07/15/20 18:50 Glucose 195 mg/dl (70-99) H 07/15/20 18:50 Calcium 8.5 mg/dl (8.5-10.1) 07/15/20 18:50 Magnesium 1.9 mg/dl (1.8-2.4) 07/15/20 18:50 Total Bilirubin 0.4 mg/dl (0.2-1) 07/15/20 18:50 AST 54 U/L (15-37) H 07/15/20 18:50 ALT 42 U/L (12-78) 07/15/20 18:50 Alkaline Phosphatase 80 U/L (45-117) 07/15/20 18:50 Troponin I < 0.015 ng/ml (0-0.045) 07/15/20 18:50 Total Protein 7.0 gm/dl (6.4-8.2) 07/15/20 18:50 Albumin 2.6 gm/dl (3.4-5.0) L 07/15/20 18:50 Globulin 4.4 gm/dl (2.5-4.0) H 07/15/20 18:50 Albumin/Globulin Ratio 0.6 (0.9-2) L 07/15/20 18:50 TSH 1.580 uIu/ml (0.300-4.500) 07/15/20 18:50 Specimen Hemolysis 07/15/20 18:50 COVID-19 Eval Order [facility] at [facility] 07/15/20 19:31 SARS-CoV-2 (PCR) POSITIVE (Negative) A* 07/15/20 19:31 Influenza Type A (PCR) Negative (Neg) 07/15/20 19:31 Influenza Type B (PCR) Negative (Neg) 07/15/20 19:31 RSV (RT-PCR) Negative (Neg) 07/15/20 19:31 Diagnostic Findings [facility] Patient: JACQUIE CALDWELL (Female) : 45 Status: ER Date: 07/15/20 22:43 Room #: History: pain eval for dvt Slices: 22 Priors: Tech: Frazier Allison @ [id number] Exams: US VENOUS RIGHT LOWER EXTREMITY Contrast: Accession Numbers: [id number] Preliminary Findings Only See Final Report For Complete Findings US VENOUS RIGHT LOWER EXTREMITY: No DVT demonstrated. Radiologist: Farhana Kwong M.D. Study ready at 22:45 and initial results transmitted at 22:58 *This report constitutes a preliminary interpretation only. Non-acute findings felt to be unrelated to the clinical presentation may not be discussed in this report. The study will be interpreted and a final report will be generated by the local Radiologist the following shift. To reach the hospital radiology department call [phone]. If a discrepancy is found between the preliminary and final interpretations of this study, please notify us via our Client Portal at [email or web address], [email or web address] [email or web address].You can also fax this report with a description of the discrepancy, or include the final report, to our daytime fax number [phone].If faxing, please indicate the severity of discrepancy using one of the following categories: [ ] 1 - Agree/Informational [ ] 2 - Unlikely to Affect Management [ ] 3 - Possible Eventual Change of Management [ ] 4 - Probable Immediate Change of Management For all other patient related information, please fax us at [phone]. [id number] [facility] Patient: JACQUIE CALDWELL (Female) : 45 Status: ER Date: 07/15/20 21:10 Room #: History: FALL, HYPOXIC PT UNABLE TO REMOVE EARRING FOR SCAN OPTIRAY 350 106ML EK/AW Slices: 713 Priors: Tech: Colten Harris @ [id number] Exams: CTA CHEST Contrast: IV Amt: 106ML Accession Numbers: [id number] Preliminary Findings Only See Final Report For Complete Findings CTA CHEST: Poor opacification of the pulmonary arteries. No apparent saddle embolus. Bilateral pulmonary infiltrates. No acute traumatic findings. Mild mediastinal and hilar adenopathy. Mild cardiomegaly and small pericardial effusion. Radiologist: Farhana Kwong M.D. Study ready at 21:18 and initial results transmitted at 21:33 *This report constitutes a preliminary interpretation only. Non-acute findings felt to be unrelated to the clinical presentation may not be discussed in this report. The study will be interpreted and a final report will be generated by the local Radiologist the following shift. To reach the hospital radiology department call [phone]. If a discrepancy is found between the preliminary and final interpretations of this study, please notify us via our Client Portal at [email or web address], under [email or web address] [email or web address].You can also fax this report with a description of the discrepancy, or include the final report, to our daytime fax number [phone].If faxing, please indicate the severity of discrepancy using one of the following categories: [ ] 1 - Agree/Informational [ ] 2 - Unlikely to Affect Management [ ] 3 - Possible Eventual Change of Management [ ] 4 - Probable Immediate Change of Management For all other patient related information, please fax us at [phone]. [id number] [facility] Patient: JACQUIE CALDWELL (Female) : 45 Status: ER Date: 07/15/20 21:10 Room #: History: FALL, HYPOXIC PT UNABLE TO REMOVE EARRING FOR SCAN OPTIRAY 350 106ML EK/AW Slices: 753 Priors: Tech: Colten Harris @ [id number] Exams: CT C SPINE Contrast: Accession Numbers: [id number] Preliminary Findings Only See Final Report For Complete Findings CT C SPINE: No evidence of fracture or malalignment. Degenerative changes. Thyroid nodule (s) Radiologist: Farhana Kwong M.D. Study ready at 21:18 and initial results transmitted at 21:23 *This report constitutes a preliminary interpretation only. Non-acute findings felt to be unrelated to the clinical presentation may not be discussed in this report. The study will be interpreted and a final report will be generated by the local Radiologist the following shift. To reach the hospital radiology department call [phone]. If a discrepancy is found between the preliminary and final interpretations of this study, please notify us via our Client Portal at [email or web address].You can also fax this report with a description of the discrepancy, or include the final report, to our daytime fax number [phone].If faxing, please indicate the severity of discrepancy using one of the following categories: [ ] 1 - Agree/Informational [ ] 2 - Unlikely to Affect Management [ ] 3 - Possible Eventual Change of Management [ ] 4 - Probable Immediate Change of Management For all other patient related information, please fax us at [phone]. [id number] [facility] Patient: JACQUIE CALDWELL (Female) : 45 Status: ER Date: 07/15/20 21:09 Room #: History: FALL, HYPOXIC PT UNABLE TO REMOVE EARRING FOR SCAN OPTIRAY 350 106ML EK/AW Slices: 59 Priors: Tech: Colten Harris @ [phone] Exams: CT HEAD Contrast: Accession Numbers: [id number] Preliminary Findings Only See Final Report For Complete Findings CT HEAD: No ICH, mass effect or edema. No skull fracture. Involutional changes with small vessel disease and old lacunar infarcts. Radiologist: Farhana Kwong M.D. Study ready at 21:21 and initial results transmitted at 21:23 *This report constitutes a preliminary interpretation only. Non-acute findings felt to be unrelated to the clinical presentation may not be discussed in this report. The study will be interpreted and a final report will be generated by the local Radiologist the following shift. To reach the hospital radiology department call [phone]. If a discrepancy is found between the preliminary and final interpretations of this study, please notify us via our Client Portal at [email or web address].You can also fax this report with a description of the discrepancy, or include the final report, to our daytime fax number [phone].If faxing, please indicate the severity of discrepancy using one of the following categories: [ ] 1 - Agree/Informational [ ] 2 - Unlikely to Affect Management [ ] 3 - Possible Eventual Change of Management [ ] 4 - Probable Immediate Change of Management For all other patient related information, please fax us at [phone]. [id number] Code Status & VTE Plan Code Status Full code VTE Prophylaxis Plan VTE Prophylaxis will be ordered: Yes PG Care Time/CCT Total # of Minutes Spent Total Time Spent with Patient: Total time spent is greater than 50% in coordination of care (as documented) at patient's floor/unit and/or counseling patient: Coding Level of Care Code 20195 Initial Inpt Care Lvl 3 Diagnoses Pneumonia due to COVID-19 virus U07.1; J12.82 Multifocal pneumonia J18.9 Hypoxemia R09.02 Syncope R55 Syncope type: unspecified Hyperglycemia R73.9 (1) Syncope Syncope type: unspecified Qualified Code(s): R55 - Syncope and collapse
[2020-07-15] MEDS ORDERED: ENOXAPARIN 0.5 MG/KG SQ SCH (22:30)
[2020-07-16] MEDS ORDERED: ONDANSETRON INJ 2 MG/ML 2 ML VIAL IV PRN (00:02)
[2020-07-16] MEDS ORDERED: DEXTROSE 50% 50 ML SYRINGE IV PRN (00:02)
[2020-07-16] MEDS ORDERED: CARBOHYDRATES FOR HYPOGLYCEMIA PO PRN (00:02)
[2020-07-16] MEDS ORDERED: GLUCOSE 40% GEL 15 GM TUBE PO PRN (00:02)
[2020-07-16] MEDS ORDERED: GLUCAGON FOR INJ 1 MG VIAL SQ PRN (00:02)
[2020-07-16] MEDS ORDERED: GLUCOSE 10 TABS/TUBE PO PRN (00:02)
[2020-07-16] MEDS ORDERED: REMDESIVIR 200 MG in SODIUM CHLORIDE 0.9% 210 ML IV ONE (00:30)
[2020-07-16] MEDS: NSS + 20MEQ KCL 20 MEQ/1,000 ML BAG IV SCH ×2 (04:08→21:21)
[2020-07-16] MEDS ORDERED: ALBUTEROL HFA 8 GM INHALER INH SCH (07:00)
--- NOTE | 2020-07-16 07:34 | CT Scan Report ---
CT head/brain wo con CLINICAL HISTORY: 75 years-old Female with syncope eval for bleed. Acute head trauma with syncope TECHNIQUE: Multiple axial CT images of the head were obtained without contrast. A dose lowering tech nique was utilized adhering to the principles of ALARA. COMPARISON: 11/14/2016 FINDINGS: Pulmonary opacities noted on the corporate security officer localizer images. No acute intracranial hemorrhage, midline sh ift, intracranial mass, hydrocephalus, territorial ischemia or abnormal extra-axial collection. Age-r elated involutional changes. White matter hypodensities suggestive of chronic microvascular ischemic disease. Cerebral vascular calcifications. The calvarium is intact. The paranasal sinuses, mastoid air cells, and middle ear cavities are clear . IMPRESSION: No acute intracranial abnormality or calvarial fracture. ACT 112: Negative or not required by law. The above report was generated using voice recognition software. It may contain grammatical, syntax o r spelling errors. Electronically signed by: Frank Joseph M.D. 07/16/2020 7:33 AM
--- NOTE | 2020-07-16 08:02 | CT Scan Report ---
CT cervical spine wo con CT DOSE: 2324.63 mGy.cm CLINICAL HISTORY: 75 years-old Female with fall eval for fx. Acute neck trauma status post fall COMPARISON: Head CT and CTA chest of same day TECHNIQUE: Multiple axial CT images of the cervical spine were obtained without contrast. A dose low ering technique was utilized adhering to the principles of ALARA. FINDINGS: Mild vascular calcifications. No pneumothorax. Multifocal pulmonary opacities are better seen on comp arison chest CT. There is no prevertebral edema. Heterogeneous thyroid. 12 mm left-sided hypodense le ft thyroid nodule. Exophytic parenchyma versus 1.7 cm right thyroid nodule. Moderate intervertebral disc space narrowing at C4-C5 and C5-C6 with associated uncovertebral spurrin g and posterior disc osteophyte complex formations. Multilevel moderate and severe facet arthrosis. N o acute fracture or subluxation. Multilevel neural foraminal narrowing. Mild levoscoliosis may be pos itional. IMPRESSION: No acute fracture or subluxation. ACT 112: Negative or not required by law. The above report was generated using voice recognition software. It may contain grammatical, syntax o r spelling errors. Electronically signed by: Frank Joseph M.D. 07/16/2020 8:00 AM
--- NOTE | 2020-07-16 08:10 | CT Scan Report ---
CT ANGIOGRAM OF THE CHEST CLINICAL HISTORY: hypoxic eval for PE HYPOXIA. POSSIBLE ACUTE PULMONARY EMBOLISM. COMPARISON STUDY: No previous studies for comparison. TECHNIQUE: Following the IV administration of 106 mL of Optiray-320, CT angiogram of the thorax was p erformed from the thoracic inlet to the lung bases utilizing the pulmonary embolus protocol. Images a re reviewed in the axial, sagittal, and coronal planes. IV contrast was administered without complica tion. MIP imaging was performed. A dose lowering technique was utilized adhering to the principles o f ALARA. CT DOSE: FINDINGS: There is a multinodular thyroid gland. There is hepatic steatosis. There is low-density bilateral adrenal gland thickening. There is mild mediastinal and hilar lymphadenopathy, likely reactive. There was no evidence of thoracic aortic dilatation. There were no pulmonary artery filling defects to indicate acute pulmonary embolism. There are trace pleural effusions. There are multifocal groundglass pulmonary opacities consistent with a multifocal pneumonia. The find ings are suspicious for Covid 19 pneumonia. There is a 24 mm right breast nodule. IMPRESSION: 1. No evidence of acute pulmonary embolism 2. Multifocal pulmonary airspace opacities in a pattern suspicious for Covid 19 pneumonia. 3. Trace bilateral pleural effusions and trace pericardial effusion 4. 24 mm right breast nodule. This finding will be called to the floor as this was not described in t he preliminary report 5. Hepatic steatosis. 6. Multinodular thyroid gland. ACT 112: Negative or not required by law. Electronically signed by: Jose Luis Mack M.D. 07/16/2020 8:09 AM
--- NOTE | 2020-07-16 08:29 | Ultrasound Report ---
US venous doppler LE RT CLINICAL HISTORY: Right leg swelling COMPARISON STUDY: No previous studies for comparison. FINDINGS: Real-time and color flow Doppler imaging were performed. Flow was seen within the femoral, popliteal and calf veins with no intraluminal thrombus demonstrated. The saphenous vein is patent. IMPRESSION: No evidence of right lower extremity DVT ACT 112: Negative or not required by law. Electronically signed by: Jose Luis Mack M.D. 07/16/2020 8:28 AM
[2020-07-16] MEDS ORDERED: ALBUTEROL HFA 8 GM INHALER INH PRN (08:35)
--- NOTE | 2020-07-16 08:58 | XRay Report ---
XR hip RT 2V w pelvis HISTORY: 75 years-old Female pain eval for fx acute right-sided hip pain with recent arthroplasty COMPARISON: None TECHNIQUE: AP view the pelvis with 2 views of the right hip FINDINGS: Mild to moderate left hip osteoarthritis. Right hip total joint arthroplasty. No acute fracture, disl ocation, avascular necrosis or opaque foreign body. No evidence of hardware complication. Contrast is noted within the urinary bladder lumen. Unremarkable soft tissues. IMPRESSION: 1. No acute fracture or dislocation. 2. Right hip total joint arthroplasty. ACT 112: Negative or not required by law. The above report was generated using voice recognition software. It may contain grammatical, syntax o r spelling errors. Electronically signed by: Frank Joseph M.D. 07/16/2020 8:57 AM
[2020-07-16] MEDS ORDERED: ENOXAPARIN INJ 60 MG/0.6 ML SYR SQ SCH (09:00)
[2020-07-16] MEDS: INSULIN ASPART 100 UNITS/ML 3 ML PEN SC SCH ×4 (09:30→21:00)
[2020-07-16] MEDS: CHOLECALCIFEROL 1,000 UNITS 25 MCG TAB PO SCH (09:43)
[2020-07-16] MEDS: ZINC SULFATE 220 MG CAPSULE PO SCH (09:43)
[2020-07-16] MEDS: dexAMETHasone 6 MG in SYRINGE 0 ML IV SCH (09:43)
[2020-07-16 09:45] LABS: Estimated Average Glucose 166 mg/dl; Hemoglobin A1C 7.4 % (4.5-5.6)
[2020-07-16 13:03] LABS: BUN Creatinine Ratio 31.6 (10-20); C Reactive Protein 11.6 mg/dl (0-0.29); Calcium 8.3 mg/dl (8.5-10.1); Creatinine Clr Calc Pharmacy 43.5 ml/min; Est GFR (African American) 52.2; Est GFR (Non-African American) 45.1; Potassium 3.9 mmol/L (3.5-5.1)
--- NOTE | 2020-07-16 18:36 | Electrocardiogram Report ---
Test Reason : Blood Pressure : / mmHG Vent. Rate : 094 BPM Atrial Rate : 094 BPM P-R Int : 162 ms QRS Dur : 094 ms QT Int : 352 ms P-R-T Axes : -09 -08 065 degrees QTc Int : 440 ms Normal sinus rhythm Nonspecific ST abnormality Abnormal ECG When compared with ECG of 15-NOV-2016 06:24, Premature atrial complexes are no longer Present Nonspecific T wave abnormality no longer evident in Inferior leads Confirmed by Ghassan Collins ([id number]) on 07/16/2020 6:35:43 PM Referred By: REFERRED SELF Confirmed By:Evelio Collins
[2020-07-16] MEDS: APIXABAN 5 MG TABLET PO SCH (21:16)
--- NOTE | 2020-07-16 22:07 | Hospitalist Progress Note ---
Date of Service July 16, 2020 Assessment & Plan (1) Pneumonia due to COVID-19 virus: Multifocal pneumonia due to COVID-19 virus with hypoxia- Dexamethasone 6 mg IV daily, day 2 Remdesivir IV per protocol, day 2 Zinc sulfate 220 mg p.o. every morning Vitamin D 5000 international units p.o. every morning Albuterol HFA 2 puffs 4 times daily, and every 2 hours as needed stable on 4L today, no distress, no accessory muscle use, she does not feel short of breath (2) Multifocal pneumonia: See above (3) Hypoxemia: See above stable on 4L (4) Syncope: Likely secondary to COVID-[address] CT cervical spine negative for acute event monitor on telet PT/OT ordered (5) Hyperglycemia: Glucose 195 upon admission. Placed on Accu-Cheks before meals and at bedtime with NovoLog coverage per scale Check hemoglobin A1c monitor for hypoglycemia Admission and Anticipated Discharge Date Admission Date: July 15, 2020 Subjective patient doing well, breathing comfortably on 4L NC, no distress at all, minimal cough eating and drinking well, no nausea, no diarrhea no chest pain, no fever or chills reviewed the chart from admission, reviewed labs spoke with RN, patient normally takes Eliquis, not on list, will add requesting PT/OT, patient is from [facility] Review of Systems Review of Systems: All systems reviewed & are unremarkable except as noted in Subjective Constitutional: no fever, no chills and no sweats Respiratory: + cough; no dyspnea, no dyspnea on exertion and no sputum production Gastrointestinal: no abdominal pain, no nausea, no vomiting, no constipation and no diarrhea/loose stools Physical Exam Constitutional: WD/WN, vitals as above Neck: trachea midline, no thyromegaly Respiratory: normal respiratory effort, lungs clear to auscultation Cardiovascular: RRR, no murmur, no edema Gastrointestinal (Abdomen): normal bowel sounds, soft, nontender, no hepatosplenomegaly Musculoskeletal: no cyanosis or clubbing, extremities motor strength 5/5 Skin: no rashes, warm and dry Neurologic: patellar DTR's 2+ bilat, sensation intact and PERRL, EOMI, accommodation nl, no face palsy, no dysarthria Psychiatric: A+Ox3, euthymic affect Lymphatic: no cervical or axillary lymphadenopathy Results & Data Results & Data ([facility]) Vital Signs (Past 12 Hours) Vital Signs Temp Pulse Pulse Resp BP Pulse Ox 07/16/20 21:15 86 16 154/70 H 92 07/16/20 19:43 37 C 93 H 20 179/77 H 92 07/16/20 16:56 37.0 C 86 20 138/71 92 07/16/20 15:00 88 Laboratory Results Laboratory Results - last 24 hr 07/16/20 07/16/20 07/16/20 07:12 07:59 11:52 Sodium Potassium Chloride Carbon Dioxide Anion Gap BUN Creatinine Est Cr Clr Drug Dosing Est GFR ( Amer) Est GFR (Non-Af Amer) BUN/Creatinine Ratio Glucose POC Glucose 227 H 259 H Estimat Average Glucose 166 Hemoglobin A1c 7.4 H Calcium C-Reactive Protein Procalcitonin 07/16/20 07/16/20 07/16/20 12:31 12:31 16:44 Sodium 137 D Potassium 3.9 Chloride 106 Carbon Dioxide 23 Anion Gap 8.0 BUN 37 H Creatinine 1.18 Est Cr Clr Drug Dosing 43.5 Est GFR ( Amer) 52.2 Est GFR (Non-Af Amer) 45.1 BUN/Creatinine Ratio 31.6 H Glucose 245 H POC Glucose 186 H Estimat Average Glucose Hemoglobin A1c Calcium 8.3 L C-Reactive Protein 11.60 H Procalcitonin 0.15 07/16/20 19:54 Sodium Potassium Chloride Carbon Dioxide Anion Gap BUN Creatinine Est Cr Clr Drug Dosing Est GFR ( Amer) Est GFR (Non-Af Amer) BUN/Creatinine Ratio Glucose POC Glucose 184 H Estimat Average Glucose Hemoglobin A1c Calcium C-Reactive Protein Procalcitonin Medications Administered Current Inpatient Medications Acetaminophen (Acetaminophen 325 Mg Tab) 650 mg PO Q4H PRN PRN Reason: Pain or Fever Stop: 08/15/20 00:01 Albuterol (Albuterol Hfa 8 Gm Inhaler) 2 puffs INH QIDR PRN PRN Reason: Shortness Of Breath Or Wheezing Stop: 08/15/20 06:59 Apixaban (Apixaban 5 Mg Tablet) 5 mg PO BID DEQUAN Stop: 08/15/20 20:59 Last Admin: 07/16/20 21:16 Dose: 5 mg Documented by: Dextrose (Dextrose 50% 50 Ml Syringe) 25 - 50 ml IV UD PRN; Protocol PRN Reason: Hypoglycemia Protocol Stop: 08/15/20 00:01 Glucagon (Glucagon For Inj 1 Mg Vial) 1 mg SQ UD PRN; Protocol PRN Reason: Hypoglycemia Protocol Stop: 08/15/20 00:01 Glucose (Glucose 10 Tabs/Tube) 4 - 8 tabs PO UD PRN; Protocol PRN Reason: Hypoglycemia Protocol Stop: 08/15/20 00:01 Glucose (Glucose 40% Gel 15 Gm Tube) 15 - 30 gm PO UD PRN; Protocol PRN Reason: Hypoglycemia Protocol Stop: 08/15/20 00:01 Potassium Chloride/Sodium Chloride (Normal Saline W/20 Meq Kcl) 20 meq in 1,000 mls @ 60 mls/hr IV .[id number] [facility] Stop: 08/15/20 00:01 Last Admin: 07/16/20 21:21 Dose: 60 mls/hr Documented by: Dexamethasone 6 mg/ Syringe 1.5 mls @ 1 mls/min IV Q24H [facility] Stop: 08/15/20 08:59 Last Admin: 07/16/20 09:43 Dose: 1 mls/min Documented by: Remdesivir 100 mg/ Sodium (Chloride) 250 mls @ 250 mls/hr IV Q24H [facility]; Protocol Stop: 07/20/20 20:59 Insulin Aspart (Insulin Aspart 100 Units/Ml 3 Ml Pen) 0 units SC ACHS [facility] Stop: 08/15/20 07:29 Last Admin: 07/16/20 21:00 Dose: 3 units Documented by: Miscellaneous (Carbohydrates For Hypoglycemia ) 15 - 30 gm PO UD PRN PRN Reason: Hypoglycemia Protocol Stop: 08/15/20 00:01 Ondansetron HCl (Ondansetron Inj 2 Mg/Ml 2 Ml Vial) 4 mg IV Q6H PRN PRN Reason: Nausea Stop: 08/15/20 00:01 Sodium Chloride (Sodium Chloride 0.9% 10ml Flush) 30 ml IV Q24H [facility] Stop: 07/20/20 20:01 Vitamin D (Cholecalciferol 1,000 Units 25 Mcg Tab) [facility] Stop: 08/15/20 08:59 Last Admin: 07/16/20 09:43 Dose: 5,000 units Documented by: Zinc Sulfate (Zinc Sulfate 220 Mg Capsule) 220 mg PO QAM [facility] Stop: 08/15/20 08:59 Last Admin: 07/16/20 09:43 Dose: 220 mg Documented by: PG Care Time/CCT Total # of Minutes Spent Total Time Spent with Patient: Total time spent is greater than 50% in coordination of care (as documented) at patient's floor/unit and/or counseling patient: Coding Level of Care Code 99861 Subseq Hosp Care Lvl 3 Diagnoses Pneumonia due to COVID-19 virus U07.1; J12.82 Multifocal pneumonia J18.9 Hypoxemia R09.02 Syncope R55 Syncope type: unspecified Hyperglycemia R73.9 (1) Syncope Syncope type: unspecified Qualified Code(s): R55 - Syncope and collapse
[2020-07-17] MEDS: ACETAMINOPHEN 325 MG TAB PO PRN (02:42)
[2020-07-17] MEDS ORDERED: MoRPHine SULFATE 2 MG/ML CARP IV STA (02:51)
[2020-07-17] MEDS ORDERED: MoRPHine SULFATE 2 MG/ML CARP ONE (02:57)
[2020-07-17] MEDS ORDERED: CYCLOBENZAPRINE HCL 5 MG TAB PO STA (03:31)
[2020-07-17] MEDS ORDERED: LIDOCAINE 5% 1 PATCH TD ONE (03:33)
[2020-07-17 07:59] LABS: Hematocrit (blood only) 35.3 % (37-47); Hemoglobin 12.1 g/dL (12.0-16.0); Mean Corpuscular Hemoglobin 29.9 pg (25-34); Mean Corpuscular Hgb Conc 34.3 g/dL (32-36); Mean Corpuscular Volume 87.2 fL (80-100); Mean Platelet Volume 9.2 fL (7.4-10.4); Platelet Count 748 K/uL (130-400); RDW Coefficient of Variation 13.9 % (11.5-14.5); RDW Standard Deviation 44.4 fL (36.4-46.3); Red Blood Count 4.05 M/uL (4.2-5.4)
[2020-07-17 08:30] LABS: Calcium 8.7 mg/dl (8.5-10.1); Creatinine Clr Calc Pharmacy 53.6 ml/min; Est GFR (African American) 67.1; Est GFR (Non-African American) 57.9; Potassium 4.1 mmol/L (3.5-5.1)
[2020-07-17] MEDS: dexAMETHasone 6 MG in SYRINGE 0 ML IV SCH (08:47)
[2020-07-17] MEDS: CHOLECALCIFEROL 1,000 UNITS 25 MCG TAB PO SCH (08:47)
[2020-07-17] MEDS: ZINC SULFATE 220 MG CAPSULE PO SCH (08:47)
[2020-07-17] MEDS: APIXABAN 5 MG TABLET PO SCH ×2 (08:48→20:50)
[2020-07-17] MEDS: INSULIN ASPART 100 UNITS/ML 3 ML PEN SC SCH ×4 (08:48→21:04)
[2020-07-17] MEDS: NSS + 20MEQ KCL 20 MEQ/1,000 ML BAG IV SCH (08:49)
[2020-07-17] MEDS ORDERED: ENOXAPARIN INJ 40 MG/0.4 ML SYR SQ SCH (09:00)
[2020-07-17 09:37] LABS: Appearance Urine Clear (Clear); Bilirubin Urine Negative (Negative); Blood Urine Negative (Negative); Color Urine Yellow; Glucose Urine UA Negative (Negative); Ketones Urine Negative (Negative); Leukocyte Esterase Urine Negative (Negative); Nitrite Urine Negative (Negative); Protein Urine Negative (Negative); Specific Gravity Urine 1.015 (1.000-1.030); Urobilinogen Urine Negative (Negative); pH Urine 5.5 (4.5-7.5)
[2020-07-17] MEDS ORDERED: oxyCODONE HCL IR 5 MG TAB (IMMEDIATE RELEASE) PO STA (09:37)
[2020-07-17] MEDS ORDERED: KETOROLAC TROMETHAMINE 15 MG/ML VIAL IV ONE ×2 (09:37→22:56)
--- NOTE | 2020-07-17 12:40 | Hospitalist Progress Note ---
Date of Service July 17, 2020 Assessment & Plan (1) Pneumonia due to COVID-19 virus: Multifocal pneumonia due to COVID-19 virus with hypoxia- Dexamethasone 6 mg IV daily, day 3 Remdesivir IV per protocol, day 3 Zinc sulfate 220 mg p.o. every morning Vitamin D 5000 international units p.o. every morning Albuterol HFA 2 puffs 4 times daily, and every 2 hours as needed still stable on 4L today, no distress, no accessory muscle use, she does not feel short of breath discussed with her that she will be in hospital until weaned off oxygen needs to move more, sit upright in chair, she does not have much motivation, waiting on therapy (2) Multifocal pneumonia: See above (3) Hypoxemia: See above stable on 4L (4) Syncope: Likely secondary to COVID-[address] CT cervical spine negative for acute event monitor on tele for today, if no issues then could probably move off tele tomorrow PT/OT ordered (5) Hyperglycemia: Glucose 195 upon admission. Placed on Accu-Cheks before meals and at bedtime with NovoLog coverage per scale Check hemoglobin A1c monitor for hypoglycemia, no episodes (6) Atrial fibrillation: chronic issue continue Eliquis BID, no rate control medications (7) S/P total hip arthroplasty: had right MONY on 07/04 at [facility] she is WBAT on right leg, ambulates with walker requesting PT/OT, at baseline she lives at [facility] went to see ortho after she had syncope event, x-ray of right hip showed no fracture, implant in good position Admission and Anticipated Discharge Date Admission Date: July 15, 2020 Subjective patient feeling about the same today, breathing comfortably on 4L her main issue is pain in right hip she had MONY on 07/04 at [facility], at this point she is full weight bearing on the hip, needs therapy can sit in a chair no fever, minimal cough, no chest pain she has not had a BM since admission but feels like she might have one soon Review of Systems Review of Systems: All systems reviewed & are unremarkable except as noted in Subjective Respiratory: no cough and no dyspnea Cardiovascular: no chest pain Gastrointestinal: + constipation; no abdominal pain, no nausea, no vomiting and no diarrhea/loose stools Musculoskeletal: + joint pain (right hip) Physical Exam Constitutional: WD/WN, vitals as above Neck: trachea midline, no thyromegaly Respiratory: normal respiratory effort, lungs clear to auscultation Cardiovascular: RRR, no murmur, no edema Gastrointestinal (Abdomen): normal bowel sounds, soft, nontender, no h epatosplenomegaly Musculoskeletal: no cyanosis or clubbing, extremities motor strength 5/5 Skin: no rashes, warm and dry Neurologic: patellar DTR's 2+ bilat, sensation intact and PERRL, EOMI, accommodation nl, no face palsy, no dysarthria Psychiatric: A+Ox3, euthymic affect Lymphatic: no cervical or axillary lymphadenopathy Results & Data Results & Data ([facility]) Vital Signs (Past 12 Hours) Vital Signs Temp Pulse Pulse Resp BP Pulse Ox 07/17/20 11:16 36.6 C 75 16 164/74 H 96 07/17/20 08:34 69 07/17/20 07:37 36.9 C 80 19 144/56 H 90 07/17/20 03:24 36.7 C 18 153/70 H 88 L Laboratory Results Laboratory Results - last 24 hr 07/16/20 07/16/20 07/16/20 12:31 12:31 16:44 WBC RBC Hgb Hct MCV MCH MCHC RDW Std Deviation RDW Coeff of Savita Plt Count MPV Sodium 137 D Potassium 3.9 Chloride 106 Carbon Dioxide 23 Anion Gap 8.0 BUN 37 H Creatinine 1.18 Est Cr Clr Drug Dosing 43.5 Est GFR ( Amer) 52.2 Est GFR (Non-Af Amer) 45.1 BUN/Creatinine Ratio 31.6 H Glucose 245 H POC Glucose 186 H Calcium 8.3 L C-Reactive Protein 11.60 H Procalcitonin 0.15 Urine Color Urine Appearance Urine pH Ur Specific Kirk Urine Protein Urine Glucose (UA) Urine Ketones Urine Blood Urine Nitrite Urine Bilirubin Urine Urobilinogen Ur Leukocyte Esterase 07/16/20 07/17/20 07/17/20 19:54 07:40 07:40 WBC 14.40 H RBC 4.05 L Hgb 12.1 Hct 35.3 L MCV 87.2 MCH 29.9 MCHC 34.3 RDW Std Deviation 44.4 RDW Coeff of Savita 13.9 Plt Count 748 H MPV 9.2 Sodium 140 Potassium 4.1 Chloride 112 H Carbon Dioxide 22 Anion Gap 6.0 BUN 40 H Creatinine 0.96 Est Cr Clr Drug Dosing 53.6 Est GFR ( Amer) 67.1 Est GFR (Non-Af Amer) 57.9 BUN/Creatinine Ratio 42.0 H Glucose 134 H POC Glucose 184 H Calcium 8.7 C-Reactive Protein Procalcitonin Urine Color Urine Appearance Urine pH Ur Specific Kirk Urine Protein Urine Glucose (UA) Urine Ketones Urine Blood Urine Nitrite Urine Bilirubin Urine Urobilinogen Ur Leukocyte Esterase 07/17/20 07/17/20 07/17/20 07:50 11:06 Unknown WBC RBC Hgb Hct MCV MCH MCHC RDW Std Deviation RDW Coeff of Savita Plt Count MPV Sodium Potassium Chloride Carbon Dioxide Anion Gap BUN Creatinine Est Cr Clr Drug Dosing Est GFR ( Amer) Est GFR (Non-Af Amer) BUN/Creatinine Ratio Glucose POC Glucose 149 H 216 H Calcium C-Reactive Protein Procalcitonin Urine Color Yellow Urine Appearance Clear Urine pH 5.5 Ur Specific Kirk 1.015 Urine Protein Negative Urine Glucose (UA) Negative Urine Ketones Negative Urine Blood Negative Urine Nitrite Negative Urine Bilirubin Negative Urine Urobilinogen Negative Ur Leukocyte Esterase Negative Medications Administered Current Inpatient Medications Acetaminophen (Acetaminophen 325 Mg Tab) 650 mg PO Q4H PRN PRN Reason: Pain or Fever Stop: 08/15/20 00:01 Last Admin: 07/17/20 02:42 Dose: 650 mg Documented by: Albuterol (Albuterol Hfa 8 Gm Inhaler) 2 puffs INH QIDR PRN PRN Reason: Shortness Of Breath Or Wheezing Stop: 08/15/20 06:59 Apixaban (Apixaban 5 Mg Tablet) 5 mg PO BID [facility] Stop: 08/15/20 20:59 Last Admin: 07/17/20 08:48 Dose: 5 mg Documented by: Cyclobenzaprine HCl (Cyclobenzaprine Hcl 5 Mg Tab) 5 mg PO BID [facility] Stop: 08/16/20 20:59 Dextrose (Dextrose 50% 50 Ml Syringe) 25 - 50 ml IV UD PRN; Protocol PRN Reason: Hypoglycemia Protocol Stop: 08/15/20 00:01 Glucagon (Glucagon For Inj 1 Mg Vial) 1 mg SQ UD PRN; Protocol PRN Reason: Hypoglycemia Protocol Stop: 08/15/20 00:01 Glucose (Glucose 10 Tabs/Tube) 4 - 8 tabs PO UD PRN; Protocol PRN Reason: Hypoglycemia Protocol Stop: 08/15/20 00:01 Glucose (Glucose 40% Gel 15 Gm Tube) 15 - 30 gm PO UD PRN; Protocol PRN Reason: Hypoglycemia Protocol Stop: 08/15/20 00:01 Potassium Chloride/Sodium Chloride (Normal Saline W/20 Meq Kcl) 20 meq in 1,000 mls @ 60 mls/hr IV .[id number] [facility] Stop: 08/15/20 00:01 Last Admin: 07/17/20 08:49 Dose: 60 mls/hr Documented by: Dexamethasone 6 mg/ Syringe 1.5 mls @ 1 mls/min IV Q24H [facility] Stop: 08/15/20 08:59 Last Admin: 07/17/20 08:47 Dose: 1 mls/min Documented by: Remdesivir 100 mg/ Sodium (Chloride) 250 mls @ 250 mls/hr IV Q24H [facility]; Protocol Stop: 07/20/20 20:59 Insulin Aspart (Insulin Aspart 100 Units/Ml 3 Ml Pen) 0 units SC ACHS [facility] Stop: 08/15/20 07:29 Last Admin: 07/17/20 12:28 Dose: 6 units Documented by: Miscellaneous (Carbohydrates For Hypoglycemia ) 15 - 30 gm PO UD PRN PRN Reason: Hypoglycemia Protocol Stop: 08/15/20 00:01 Miscellaneous (Remove Lidoderm Patch) 1 ea N/A DAILY@2100 [facility] Stop: 07/17/20 21:01 Ondansetron HCl (Ondansetron Inj 2 Mg/Ml 2 Ml Vial) 4 mg IV Q6H PRN PRN Reason: Nausea Stop: 08/15/20 00:01 Sodium Chloride (Sodium Chloride 0.9% 10ml Flush) 30 ml IV Q24H [facility] Stop: 07/20/20 20:01 Vitamin D (Cholecalciferol 1,000 Units 25 Mcg Tab) 5,000 units PO QAM [facility] Stop: 08/15/20 08:59 Last Admin: 07/17/20 08:47 Dose: 5,000 units Documented by: Zinc Sulfate (Zinc Sulfate 220 Mg Capsule) 220 mg PO QAM [facility] Stop: 08/15/20 08:59 Last Admin: 07/17/20 08:47 Dose: 220 mg Documented by: PG Care Time/CCT Total # of Minutes Spent Total Time Spent with Patient: Total time spent is greater than 50% in coord ination of care (as documented) at patient's floor/unit and/or counseling patient: Coding Level of Care Code 40501 Subseq Hosp Care Lvl 3 Diagnoses Pneumonia due to COVID-19 virus U07.1; J12.82 Multifocal pneumonia J18.9 Hypoxemia R09.02 Syncope R55 Syncope type: unspecified Hyperglycemia R73.9 Atrial fibrillation I48.91 S/P total hip arthroplasty Z96.649 (1) Syncope Syncope type: unspecified Qualified Code(s): R55 - Syncope and collapse
[2020-07-17] MEDS: REMDESIVIR 100 MG in SODIUM CHLORIDE 0.9% 230 ML IV SCH (20:49)
[2020-07-17] MEDS: CYCLOBENZAPRINE HCL 5 MG TAB PO SCH (20:49)
[2020-07-17] MEDS: SODIUM CHLORIDE 0.9% 10ML FLUSH IV SCH (20:50)
[2020-07-18] MEDS ORDERED: KETOROLAC TROMETHAMINE 15 MG/ML VIAL ONE (01:51)
[2020-07-18] MEDS: NSS + 20MEQ KCL 20 MEQ/1,000 ML BAG IV SCH (01:56)
[2020-07-18] MEDS ORDERED: MoRPHine SULFATE 2 MG/ML CARP IV STA (05:13)
[2020-07-18] MEDS: APIXABAN 5 MG TABLET PO SCH ×2 (08:39→21:48)
[2020-07-18] MEDS: CHOLECALCIFEROL 1,000 UNITS 25 MCG TAB PO SCH (08:39)
[2020-07-18] MEDS: ZINC SULFATE 220 MG CAPSULE PO SCH (08:39)
[2020-07-18] MEDS: ACETAMINOPHEN 325 MG TAB PO PRN (08:39)
[2020-07-18] MEDS: CYCLOBENZAPRINE HCL 5 MG TAB PO SCH ×2 (08:39→21:48)
[2020-07-18] MEDS: dexAMETHasone 6 MG in SYRINGE 0 ML IV SCH (08:40)
[2020-07-18] MEDS: INSULIN ASPART 100 UNITS/ML 3 ML PEN SC SCH ×4 (08:45→21:54)
[2020-07-18 09:21] LABS: Hematocrit (blood only) 35.9 % (37-47); Mean Corpuscular Hemoglobin 29.6 pg (25-34); Mean Corpuscular Hgb Conc 33.4 g/dL (32-36); Mean Corpuscular Volume 88.4 fL (80-100); Mean Platelet Volume 9.1 fL (7.4-10.4); Platelet Count 834 K/uL (130-400); RDW Standard Deviation 45.5 fL (36.4-46.3); Red Blood Count 4.06 M/uL (4.2-5.4); White Blood Count 12.69 K/uL (4.8-10.8)
[2020-07-18 09:48] LABS: Albumin Level 2.4 gm/dl (3.4-5.0); BUN Creatinine Ratio 34.3 (10-20); Calcium 8.9 mg/dl (8.5-10.1); Creatinine Clr Calc Pharmacy 57.7 ml/min; Est GFR (African American) 73.5; Est GFR (Non-African American) 63.4; Potassium 4.4 mmol/L (3.5-5.1)
[2020-07-18 09:51] LABS: Albumin Globulin Ratio 0.6 (0.9-2); Bilirubin,Total 0.4 mg/dl (0.2-1); Globulin 3.8 gm/dl (2.5-4.0); Total Protein 6.2 gm/dl (6.4-8.2)
[2020-07-18] MEDS: ASPIRIN 81 MG ECTAB PO SCH (11:07)
[2020-07-18] MEDS ORDERED: METOPROLOL SUCC 25MG EXT REL TAB PO SCH (11:40)
[2020-07-18] MEDS: OLMESARTAN MEDOXOMIL 20 MG TAB PO SCH (12:20)
[2020-07-18] MEDS: REMDESIVIR 100 MG in SODIUM CHLORIDE 0.9% 230 ML IV SCH (19:57)
--- NOTE | 2020-07-18 21:08 | Hospitalist Progress Note ---
Date of Service July 18, 2020 Assessment & Plan (1) Pneumonia due to COVID-19 virus: Stable on small amount of NC O2. Cont Dexamethasone 6 mg IV daily, day 4 of 10 today. Remdesivir IV per protocol, day 3 today. Albuterol HFA 2 puffs 4 times daily, and every 2 hours as needed. Need to check with ortho if proning is permissible in setting of recent right THR, anterior approach. Add flutter valve. Add incentive spirometry. (2) Acute respiratory failure with hypoxia: 2nd COVID-19 pneumonia. Stable. see above. (3) Syncope: Suspect it was secondary to COVID-[address] head and CT cervical spine negative for fracture/injury/ICH. (4) Atrial fibrillation: PAF. Has remained in NSR since admission. Continue Eliquis BID. On no AV lobo medications. (5) S/P total hip arthroplasty: had right MONY on 07/04 at [facility] she is WBAT on right leg, ambulates with walker PT/OT, at baseline she lives at [facility] went to see ortho after she had syncope event, x-ray of right hip showed no fracture, implant in good position (6) Hypertension: resume ARB resume BB resume HCTZ (7) Diabetes mellitus type 2, uncontrolled: add lantus adjust novolog (8) DULCE (obstructive sleep apnea): ordered CPAP patient uncertain of settings she had sleep study at [place] - don't have access to those records (9) Acute kidney injury: resolved 2nd COVID-19 (10) DVT prophylaxis: eliquis 5mg BID updated daughter extensively by phone tonight Admission and Anticipated Discharge Date Admission Date: July 15, 2020 Subjective patient with minimal cough no dyspnea at rest main issue is that of fatigue appetite ok no chest pain or pleuritic pain Review of Systems Constitutional: + weakness; no fever, no chills and no body aches Ear, Nose, Mouth, Throat: no nasal congestion and no sore throat Gastrointestinal: no nausea and no vomiting Physical Exam Constitutional: no acute distress and no altered mental status ENMT: external ear and nose normal, oropharynx normal Respiratory: no respiratory distress Auscultation: + diminished lung sounds (bases) and + rales (bases - mild); no wheezes Cardiovascular: Rate/Rhythm: regular rate and regular rhythm Heart Sounds: normal S1 and normal S2 Vessels: posterior tibial pulses present and dorsalis pedis pulses present; no JVD Extremities: + edema (mild - right thigh; minimal right mcfarlane; none Left ) Gastrointestinal (Abdomen): normal bowel sounds, soft, nontender, no hepatosplenomegaly Musculoskeletal: right anterior THR incision/wound c/d/i; kristopher gone Psychiatric: Orientation: alert and oriented x 3 Results & Data Results & Data ([facility]) Vital Signs (Past 12 Hours) Vital Signs Temp Pulse Pulse Resp BP Pulse Ox Pulse Ox 07/18/20 20:00 37.1 C 70 20 173/70 H 96 07/18/20 14:48 72 07/18/20 12:23 36.5 C 74 18 183/79 H 95 07/18/20 10:54 96 07/18/20 09:17 93 Pulse Ox Pulse Ox 07/18/20 20:00 07/18/20 14:48 07/18/20 12:23 07/18/20 10:54 07/18/20 09:17 95 86 L PG Care Time/CCT Total # of Minutes Spent Total Time Spent with Patient: Total time spent is greater than 50% in coordin ation of care (as documented) at patient's floor/unit and/or counseling patient: Coding Level of Care Code 72985 Subseq Hosp Care Lvl 3 Diagnoses Pneumonia due to COVID-19 virus U07.1; J12.82 Acute respiratory failure with hypoxia J96.01 Syncope R55 Syncope type: unspecified Atrial fibrillation I48.0 Atrial fibrillation type: paroxysmal S/P total hip arthroplasty Z96.649 Hypertension I10 Diabetes mellitus type 2, uncontrolled E11.65 DULCE (obstructive sleep apnea) G47.33 Acute kidney injury N17.9 DVT prophylaxis Z29.9 (1) Atrial fibrillation Atrial fibrillation type: paroxysmal Qualified Code(s): I48.0 - Paroxysmal atrial fibrillation (2) Syncope Syncope type: unspecified Qualified Code(s): R55 - Syncope and collapse
[2020-07-18] MEDS: SODIUM CHLORIDE 0.9% 10ML FLUSH IV SCH (22:27)
[2020-07-18] MEDS: INSULIN GLARGINE SOLOSTAR 100 UNITS/ML 3 ML PEN SC SCH (22:37)
[2020-07-19 07:21] LABS: Basophils # (auto) 0.01 K/uL (0-0.2); Basophils % (auto) 0.1 %; Eosinophils # (auto) 0.02 K/uL (0-0.5); Eosinophils % (auto) 0.2 %; Hematocrit (blood only) 34.4 % (37-47); Hemoglobin 11.6 g/dL (12.0-16.0); Immature Granulocytes # (auto) 0.11 K/uL (0.00-0.02); Immature Granulocytes % (auto) 0.9 %; Lymphocytes # (auto) 2.34 K/uL (1.2-3.4); Lymphocytes % (auto) 18.9 %; Mean Corpuscular Hemoglobin 29.3 pg (25-34); Mean Corpuscular Hgb Conc 33.7 g/dL (32-36); Mean Corpuscular Volume 86.9 fL (80-100); Mean Platelet Volume 9.2 fL (7.4-10.4); Monocytes # (auto) 0.89 K/uL (0.11-0.59); Monocytes % (auto) 7.2 %; Neutrophils # (auto) 9.01 K/uL (1.4-6.5); Neutrophils % (auto) 72.7 %; Platelet Count 897 K/uL (130-400); RDW Coefficient of Variation 13.6 % (11.5-14.5); RDW Standard Deviation 43.3 fL (36.4-46.3); Red Blood Count 3.96 M/uL (4.2-5.4); White Blood Count 12.38 K/uL (4.8-10.8)
[2020-07-19 07:58] LABS: BUN Creatinine Ratio 38.7 (10-20); Calcium 8.9 mg/dl (8.5-10.1); Creatinine Clr Calc Pharmacy 68.6 ml/min; Est GFR (African American) 93.4; Est GFR (Non-African American) 80.6; Potassium 3.9 mmol/L (3.5-5.1)
[2020-07-19] MEDS: METOPROLOL SUCC 25MG EXT REL TAB PO SCH ×2 (08:15→21:04)
[2020-07-19] MEDS: CYCLOBENZAPRINE HCL 5 MG TAB PO SCH ×2 (08:16→21:05)
[2020-07-19] MEDS: dexAMETHasone 6 MG in SYRINGE 0 ML IV SCH (08:16)
[2020-07-19] MEDS: OLMESARTAN MEDOXOMIL 20 MG TAB PO SCH (08:16)
[2020-07-19] MEDS: ZINC SULFATE 220 MG CAPSULE PO SCH (08:16)
[2020-07-19] MEDS: ASPIRIN 81 MG ECTAB PO SCH (08:16)
[2020-07-19] MEDS: APIXABAN 5 MG TABLET PO SCH ×2 (08:16→21:04)
[2020-07-19] MEDS: CHOLECALCIFEROL 1,000 UNITS 25 MCG TAB PO SCH (08:17)
[2020-07-19] MEDS: INSULIN ASPART 100 UNITS/ML 3 ML PEN SC SCH ×4 (09:03→21:09)
[2020-07-19] MEDS: hydroCHLOROthiazide 25 MG TAB PO SCH (11:22)
[2020-07-19] MEDS: NSS + 20MEQ KCL 20 MEQ/1,000 ML BAG IV SCH (18:46)
--- NOTE | 2020-07-19 19:02 | Hospitalist Progress Note ---
Date of Service July 19, 2020 Assessment & Plan (1) Pneumonia due to COVID-19 virus: Stable on small amount of NC O2. Cont Dexamethasone 6 mg IV daily, day today. Remdesivir IV per protocol, day today. Albuterol HFA 2 puffs 4 times daily, and every 2 hours as needed. Spoke with [facility] - proning is permissible in setting of recent right THR, anterior approach. Patient not performing her flutter valve - encouraged such. Also encouraged incentive spirometry. Recheck platelets and D-dimer in am. (2) Acute respiratory failure with hypoxia: 2nd COVID-19 pneumonia. Stable. see above. (3) Syncope: Suspect it was secondary to COVID-[address] head and CT cervical spine negative for fracture/injury/ICH/cva at admission. No dizziness, etc since admission. (4) Atrial fibrillation: PAF. Has remained in NSR since admission. Continue Eliquis BID. On no AV lobo medications. (5) S/P total hip arthroplasty: had right MONY on 07/04 at [facility] she is WBAT on right leg, ambulates with walker PT/OT, at baseline she lives at [facility] went to see ortho after she had syncope event, x-ray of right hip showed no fracture, implant in good position PT, OT both recommending rehab - excellent candidate for such daughter in support of this, and patient agreeable (6) Hypertension: resumed ARB resumed BB resumed HCTZ BPs still high if high in am then increase ARB (7) Diabetes mellitus type 2, uncontrolled: added lantus with improved glycemic control cont novolog (8) DULCE (obstructive sleep apnea): CPAP daughter brought mask/tubing in today (9) Acute kidney injury: resolved 2nd COVID-19 (10) Thrombocytosis: etiology?? continues to rise daily obtain peripheral smear am repeat platelet count am cont asa 81mg daily reactive??? usually platelets are low w/ COVID, however (11) DVT prophylaxis: eliquis 5mg BID updated daughter extensively by phone yesterday and today Admission and Anticipated Discharge Date Admission Date: July 15, 2020 Subjective patient w/ no complaints other than fatigue/being tired trying to ambulate - she realizes she needs rehab following this admission denies dyspnea at rest or with walking denies significant cough no new complaints Review of Systems Constitutional: no fever, no chills, no fatigue and no anorexia Ear, Nose, Mouth, Throat: no loss of taste no loss of smell Respiratory: no cough, no dyspnea, no dyspnea on exertion and no wheezing Cardiovascular: no chest pain Physical Exam Constitutional: no acute distress and no altered mental status ENMT: external ear and nose normal, oropharynx normal Respiratory: no respiratory distress Auscultation: + diminished lung sounds (bases) and + rales (bases - minimal ); no wheezes Cardiovascular: Rate/Rhythm: regular rate and regular rhythm Heart Sounds: normal S1 and normal S2 Vessels: posterior tibial pulses present and dorsalis pedis pulses present; no JVD Extremities: + edema (scant, R ankle ) Gastrointestinal (Abdomen): normal bowel sounds, soft, nontender, no hepatosplenomegaly Psychiatric: Orientation: alert and oriented x 3 Results & Data Results & Data ([facility] [place]) Vital Signs (Past 12 Hours) Vital Signs Temp Pulse Pulse Resp BP Pulse Ox 07/19/20 15:37 96 H 20 166/84 H 92 07/19/20 14:53 80 07/19/20 11:23 36.7 C 86 16 170/83 H 92 07/19/20 10:00 76 07/19/20 08:37 36.5 C 72 18 180/76 H 90 Laboratory Results Laboratory Results - last 24 hr 07/18/20 07/19/20 07/19/20 20:07 06:59 06:59 WBC 12.38 H RBC 3.96 L Hgb 11.6 L Hct 34.4 L MCV 86.9 MCH 29.3 MCHC 33.7 RDW Std Deviation 43.3 RDW Coeff of Savita 13.6 Plt Count 897 H MPV 9.2 Immature Gran % (Auto) 0.9 Neut % (Auto) 72.7 Lymph % (Auto) 18.9 [place] % (Auto) 7.2 Eos % (Auto) 0.2 Baso % (Auto) 0.1 Neut # (Auto) 9.01 H Lymph # (Auto) 2.34 [place] # (Auto) 0.89 H Eos # (Auto) 0.02 Baso # (Auto) 0.01 Immature Gran # (Auto) 0.11 H Sodium 141 Potassium 3.9 Chloride 110 H Carbon Dioxide 24 Anion Gap 7.0 BUN 28 H Creatinine 0.73 Est Cr Clr Drug Dosing 68.6 Est GFR ( Amer) 93.4 Est GFR (Non-Af Amer) 80.6 BUN/Creatinine Ratio 38.7 H Glucose 86 POC Glucose 201 H Calcium 8.9 Total Creatine Kinase 82 25-OH Vitamin D Total 07/19/20 07/19/20 07/19/20 06:59 08:00 11:32 WBC RBC Hgb Hct MCV MCH MCHC RDW Std Deviation RDW Coeff of Savita Plt Count MPV Immature Gran % (Auto) Neut % (Auto) Lymph % (Auto) [place] % (Auto) Eos % (Auto) Baso % (Auto) Neut # (Auto) Lymph # (Auto) [place] # (Auto) Eos # (Auto) Baso # (Auto) Immature Gran # (Auto) Sodium Potassium Chloride Carbon Dioxide Anion Gap BUN Creatinine Est Cr Clr Drug Dosing Est GFR ( Amer) Est GFR (Non-Af Amer) BUN/Creatinine Ratio Glucose POC Glucose 92 179 H Calcium Total Creatine Kinase 25-OH Vitamin D Total 42.9 07/19/20 16:48 WBC RBC Hgb Hct MCV MCH MCHC RDW Std Deviation RDW Coeff of Savita Plt Count MPV Immature Gran % (Auto) Neut % (Auto) Lymph % (Auto) [place] % (Auto) Eos % (Auto) Baso % (Auto) Neut # (Auto) Lymph # (Auto) [place] # (Auto) Eos # (Auto) Baso # (Auto) Immature Gran # (Auto) Sodium Potassium Chloride Carbon Dioxide Anion Gap BUN Creatinine Est Cr Clr Drug Dosing Est GFR ( Amer) Est GFR (Non-Af Amer) BUN/Creatinine Ratio Glucose POC Glucose 236 H Calcium Total Creatine Kinase 25-OH Vitamin D Total PG Care Time/CCT Total # of Minutes Spent Total Time Spent with Patient: Total time spent is greater than 50% in coordination of care (as documented) at patient's floor/unit and/or counseling patient: Coding Level of Care Code 80831 Subseq Hosp Care Lvl 3 Diagnoses Pneumonia due to COVID-19 virus U07.1; J12.82 Acute respiratory failure with hypoxia J96.01 Syncope R55 Syncope type: unspecified Atrial fibrillation I48.0 Atrial fibrillation type: paroxysmal S/P total hip arthroplasty Z96.649 Hypertension I10 Diabetes mellitus type 2, uncontrolled E11.65 DULCE (obstructive sleep apnea) G47.33 Acute kidney injury N17.9 Thrombocytosis D47.3 DVT prophylaxis Z29.9 (1) Atrial fibrillation Atrial fibrillation type: paroxysmal Qualified Code(s): I48.0 - Paroxysmal atrial fibrillation (2) Syncope Syncope type: unspecified Qualified Code(s): R55 - Syncope and collapse
[2020-07-19] MEDS: REMDESIVIR 100 MG in SODIUM CHLORIDE 0.9% 230 ML IV SCH (20:59)
[2020-07-19] MEDS: SODIUM CHLORIDE 0.9% 10ML FLUSH IV SCH (21:00)
[2020-07-19] MEDS: INSULIN GLARGINE SOLOSTAR 100 UNITS/ML 3 ML PEN SC SCH (21:41)
[2020-07-20 07:02] LABS: Platelet Count 964 K/uL (130-400)
[2020-07-20 07:21] LABS: D Dimer 2370 ug/L FEU (0-500)
[2020-07-20 07:34] LABS: BUN Creatinine Ratio 37.8 (10-20); Calcium 8.5 mg/dl (8.5-10.1); Creatinine Clr Calc Pharmacy 64.2 ml/min; Est GFR (African American) 84.9; Est GFR (Non-African American) 73.2
[2020-07-20] MEDS: OLMESARTAN MEDOXOMIL 20 MG TAB PO SCH (08:08)
[2020-07-20] MEDS: hydroCHLOROthiazide 25 MG TAB PO SCH (08:08)
[2020-07-20] MEDS: ZINC SULFATE 220 MG CAPSULE PO SCH (08:08)
[2020-07-20] MEDS: ASPIRIN 81 MG ECTAB PO SCH (08:08)
[2020-07-20] MEDS: CHOLECALCIFEROL 1,000 UNITS 25 MCG TAB PO SCH (08:08)
[2020-07-20] MEDS: dexAMETHasone 6 MG in SYRINGE 0 ML IV SCH (08:08)
[2020-07-20] MEDS: INSULIN ASPART 100 UNITS/ML 3 ML PEN SC SCH ×4 (08:10→21:32)
[2020-07-20] MEDS: METOPROLOL SUCC 25MG EXT REL TAB PO SCH ×2 (08:10→21:17)
[2020-07-20] MEDS: APIXABAN 5 MG TABLET PO SCH ×2 (08:10→21:17)
[2020-07-20] MEDS: CYCLOBENZAPRINE HCL 5 MG TAB PO SCH ×2 (08:10→21:17)
[2020-07-20] MEDS ORDERED: OLMESARTAN MEDOXOMIL 20 MG TAB PO ONE (09:30)
[2020-07-20] MEDS: REMDESIVIR 100 MG in SODIUM CHLORIDE 0.9% 230 ML IV SCH (19:25)
[2020-07-20] MEDS ORDERED: amLODIPine BESYLATE 5 MG TAB PO ONE (20:31)
[2020-07-20] MEDS: SODIUM CHLORIDE 0.9% 10ML FLUSH IV SCH (21:27)
[2020-07-20] MEDS: INSULIN GLARGINE SOLOSTAR 100 UNITS/ML 3 ML PEN SC SCH (21:33)
--- NOTE | 2020-07-20 22:53 | Hospitalist Progress Note ---
Date of Service July 20, 2020 Assessment & Plan (1) Pneumonia due to COVID-19 virus: Stable on small amount of NC O2. Cont Dexamethasone 6 mg IV daily, day 6 of 10 today. Remdesivir IV per protocol, day 5 of today. AST/ALT remain normal. Spoke with [facility] - proning is permissible in setting of recent right THR, anterior approach. Patient still not performing her flutter valve - again encouraged such today. Dimer elevated, but has been on eliquis 5mg BID consistently pre-hospita lization. CTA chest at admission also w/o PE. (2) Acute respiratory failure with hypoxia: 2nd COVID-19 pneumonia. Stable. see above. (3) Syncope: Suspect it was secondary to COVID-[address] head and CT cervical spine negative for fracture/injury/ICH/cva at admission. (4) Atrial fibrillation: PAF. Has remained in NSR since admission. Continue Eliquis BID. On no AV lobo medications. (5) S/P total hip arthroplasty: had right MONY on 07/04 at [facility] she is WBAT on right leg, ambulates with walker PT/OT, at baseline she lives at [facility] went to see ortho after she had syncope event, x-ray of right hip showed no fracture, implant in good position PT, OT both recommending rehab - excellent candidate for such daughter in support of this, and patient agreeable (6) Hypertension: despite ARB, BB and HCTZ her BPs remain high suspect due to IV steroids add norvasc 2.5mg x 1 (7) Diabetes mellitus type 2, uncontrolled: cont lantus and novolog may need tighter novolog coverage if daytime BSGs remain high (8) DULCE (obstructive sleep apnea): CPAP daughter brought mask/tubing but patient still didn't use CPAP last night (9) Acute kidney injury: resolved 2nd COVID-19 (10) Thrombocytosis: etiology?? 2nd COVID? peripheral smear without features of myeloproliferative d/o likely reactive repeat platelet count am cont asa 81mg daily (11) Adjustment reaction: pt despondent for the last few days in light of her current medical issues. offered prayer with the patient today. gave support. consider antidepressant if symptoms persist. (12) DVT prophylaxis: eliquis 5mg BID updated daughter extensively by phone yesterday Admission and Anticipated Discharge Date Admission Date: July 15, 2020 Subjective patient w/ no new complaints. mild cough - no change. no dyspnea. just tired/weak. she does admit to feeling despondent, but only "for a few days." she denies long-standing depression. Review of Systems Constitutional: no fever and no chills Respiratory: no wheezing Cardiovascular: no chest pain Gastrointestinal: no abdominal pain, no nausea and no vomiting Physical Exam Constitutional: no acute distress and no altered mental status ENMT: external ear and nose normal, oropharynx normal Respiratory: no respiratory distress Auscultation: + diminished lung sounds (bases) and + rales (bases - minimal ); no wheezes Cardiovascular: Rate/Rhythm: regular rate and regular rhythm Heart Sounds: normal S1 and normal S2 Vessels: posterior tibial pulses present and dorsalis pedis pulses present; no JVD Extremities: + edema (scant, R ankle ) Gastrointestinal (Abdomen): normal bowel sounds, soft, nontender, no hepatosplenomegaly Psychiatric: Orientation: alert and oriented x 3 Affect: + tearful affect Results & Data Results & Data ([facility]) Vital Signs (Past 12 Hours) Vital Signs Temp Pulse Pulse Resp BP BP Pulse Ox 07/20/20 17:10 37.0 C 73 18 173/76 H 95 07/20/20 15:12 86 07/20/20 12:18 36.9 C 68 20 157/77 H 93 Laboratory Results Laboratory Results - last 24 hr 07/20/20 07/20/20 07/20/20 06:29 06:29 06:29 Plt Count 964 H Peripher Smr Path Cons D-Dimer 2370 H* Sodium 141 Potassium 4.0 Chloride 108 H Carbon Dioxide 25 Anion Gap 8.0 BUN 30 H Creatinine 0.79 Est Cr Clr Drug Dosing 64.2 Est GFR ( Amer) 84.9 Est GFR (Non-Af Amer) 73.2 BUN/Creatinine Ratio 37.8 H Glucose 76 POC Glucose Calcium 8.5 AST 24 ALT 45 07/20/20 07/20/20 07/20/20 06:29 08:02 12:08 Plt Count Peripher Smr Path Cons D-Dimer Sodium Potassium Chloride Carbon Dioxide Anion Gap BUN Creatinine Est Cr Clr Drug Dosing Est GFR ( Amer) Est GFR (Non-Af Amer) BUN/Creatinine Ratio Glucose POC Glucose 75 142 H Calcium AST ALT 07/20/20 07/20/20 17:04 21:21 Plt Count Peripher Smr Path Cons D-Dimer Sodium Potassium Chloride Carbon Dioxide Anion Gap BUN Creatinine Est Cr Clr Drug Dosing Est GFR ( Amer) Est GFR (Non-Af Amer) BUN/Creatinine Ratio Glucose POC Glucose 212 H 206 H Calcium AST ALT PG Care Time/CCT Total # of Minutes Spent Total Time Spent with Patient: Total time spent is greater than 50% in coordination of care (as documented) at patient's floor/unit and/or counseling patient: Coding Level of Care Code 50055 Subseq Hosp Care Lvl 2 Diagnoses Pneumonia due to COVID-19 virus U07.1; J12.82 Acute respiratory failure with hypoxia J96.01 Syncope R55 Syncope type: unspecified Atrial fibrillation I48.0 Atrial fibrillation type: paroxysmal S/P total hip arthroplasty Z96.649 Hypertension I10 Diabetes mellitus type 2, uncontrolled E11.65 DULCE (obstructive sleep apnea) G47.33 Acute kidney injury N17.9 Thrombocytosis D47.3 Adjustment reaction F43.20 DVT prophylaxis Z29.9 (1) Atrial fibrillation Atrial fibrillation type: paroxysmal Qualified Code(s): I48.0 - Paroxysmal atrial fibrillation (2) Syncope Syncope type: unspecified Qualified Code(s): R55 - Syncope and collapse
[2020-07-21] MEDS: ASPIRIN 81 MG ECTAB PO SCH (09:17)
[2020-07-21] MEDS: APIXABAN 5 MG TABLET PO SCH ×2 (09:17→21:27)
[2020-07-21] MEDS: CHOLECALCIFEROL 1,000 UNITS 25 MCG TAB PO SCH (09:18)
[2020-07-21] MEDS: OLMESARTAN MEDOXOMIL 40 MG TAB PO SCH (09:18)
[2020-07-21] MEDS: METOPROLOL SUCC 25MG EXT REL TAB PO SCH ×2 (09:18→21:27)
[2020-07-21] MEDS: CYCLOBENZAPRINE HCL 5 MG TAB PO SCH (09:18)
[2020-07-21] MEDS: dexAMETHasone 6 MG in SYRINGE 0 ML IV SCH (09:18)
[2020-07-21] MEDS: hydroCHLOROthiazide 25 MG TAB PO SCH (09:18)
[2020-07-21] MEDS: ZINC SULFATE 220 MG CAPSULE PO SCH (09:18)
[2020-07-21 09:54] LABS: Hematocrit (blood only) 35.1 % (37-47); Mean Corpuscular Hemoglobin 29.9 pg (25-34); Mean Corpuscular Hgb Conc 34.2 g/dL (32-36); Mean Corpuscular Volume 87.3 fL (80-100); Mean Platelet Volume 9.2 fL (7.4-10.4); Platelet Count 1010 K/uL (130-400); RDW Coefficient of Variation 13.9 % (11.5-14.5); RDW Standard Deviation 44.2 fL (36.4-46.3); Red Blood Count 4.02 M/uL (4.2-5.4); White Blood Count 10.25 K/uL (4.8-10.8)
[2020-07-21 09:58] LABS: BUN Creatinine Ratio 34.6 (10-20); Calcium 8.2 mg/dl (8.5-10.1); Creatinine Clr Calc Pharmacy 51.2 ml/min; Est GFR (African American) 64.6; Est GFR (Non-African American) 55.7; Potassium 4.2 mmol/L (3.5-5.1)
[2020-07-21] MEDS: INSULIN ASPART 100 UNITS/ML 3 ML PEN SC SCH ×4 (09:59→21:14)
--- NOTE | 2020-07-21 20:05 | Hospitalist Progress Note ---
Date of Service July 21, 2020 Assessment & Plan (1) Pneumonia due to COVID-19 virus: stable, improving. O2 NC down to 2 liters during my visit. Cont Dexamethasone 6 mg daily, day 7 of 10 today. Convert IV to PO in am. s/p 5-day course of remdesivir IV. AST/ALT remain normal. Spoke with [facility] - proning is permissible in setting of recent right THR, anterior approach. Will defer on proning for now since she is improving. Dimer elevated, but has been on eliquis 5mg BID consistently pre- hospitalization. CTA chest at admission also w/o PE. (2) Acute respiratory failure with hypoxia: 2nd COVID-19 pneumonia. Stable. Improving. see above. (3) Syncope: Suspect it was secondary to COVID-[address] head and CT cervical spine negative for fracture/injury/ICH/cva at admission. (4) Atrial fibrillation: PAF. Remains in NSR, however. Continue Eliquis BID. (5) S/P total hip arthroplasty: had right MONY on 07/04 at [facility] she is WBAT on right leg, ambulates with walker PT/OT, at baseline she lives at [facility] [place] went to see ortho after she had syncope event, x-ray of right hip showed no f racture, implant in good position PT, OT both recommending rehab - excellent candidate for such daughter in support of this, and patient agreeable (6) Hypertension: despite ARB, BB and HCTZ her BPs remain high suspect due to IV steroids added norvasc 2.5mg x 1 with some improvement (7) Diabetes mellitus type 2, uncontrolled: cont lantus and novolog ac BSGs still high - adjust novolog (8) DULCE (obstructive sleep apnea): CPAP (9) Acute kidney injury: resolved 2nd COVID-19 (10) Thrombocytosis: etiology?? 2nd COVID? other? peripheral smear without features of myeloproliferative d/o likely reactive repeat platelet count am cont asa 81mg daily check Fe studies check JAK2 mutation check JOVI-reticulin will need f/u with heme/onc post-discharge (11) Adjustment reaction: pt despondent for the last few days in light of her current medical issues. this was better today. follow carefully. (12) Breast nodule: right seen incidentally on CT chest patient and daughter aware of this finding will need mammo and u/s post-d/c (13) DVT prophylaxis: eliquis 5mg BID updated daughter extensively by phone today if we have insurance auth, patient feeling well, and platelets stable - d/c to [facility] tomorrow or Saturday? Admission and Anticipated Discharge Date Admission Date: July 15, 2020 Subjective patient with NO complaints feeling good eating well no dyspnea no cough she states she IS using her flutter valve worked with PT today tele wnl Review of Systems Constitutional: + fatigue; no fever, no chills and no anorexia Ear, Nose, Mouth, Throat: no nasal congestion and no sore throat Respiratory: no cough and no dyspnea Cardiovascular: no chest pain Gastrointestinal: no abdominal pain, no nausea, no vomiting and no diarrhea/loose stools Physical Exam Constitutional: no acute distress and no altered mental status ENMT: external ear and nose normal, oropharynx normal Respiratory: normal respiratory effort, lungs clear to auscultation no respiratory distress Auscultation: no crackles and no wheezes Cardiovascular: Rate/Rhythm: regular rate and regular rhythm Heart Sounds: normal S1 and normal S2 Vessels: posterior tibial pulses present and dorsalis pedis pulses present; no JVD Extremities: no edema Gastrointestinal (Abdomen): normal bowel sounds, soft, nontender, no hepatosplenomegaly Psychiatric: Orientation: alert and oriented x 3 Results & Data Results & Data ([facility]) Vital Signs (Past 12 Hours) Vital Signs Temp Pulse Pulse Pulse Resp BP BP 07/21/20 19:52 36.9 C 73 73 18 145/79 H 07/21/20 15:00 68 07/21/20 14:44 36.6 C 72 18 148/79 H 07/21/20 12:02 36.7 C 66 18 136/69 Pulse Ox 07/21/20 19:52 93 07/21/20 15:00 07/21/20 14:44 96 07/21/20 12:02 96 Laboratory Results Laboratory Results - last 24 hr 07/20/20 07/21/20 07/21/20 21:21 07:48 09:22 WBC 10.25 RBC 4.02 L Hgb 12.0 Hct 35.1 L MCV 87.3 MCH 29.9 MCHC 34.2 RDW Std Deviation 44.2 RDW Coeff of Savita 13.9 Plt Count 1010 H* MPV 9.2 Sodium Potassium Chloride Carbon Dioxide Anion Gap BUN Creatinine Est Cr Clr Drug Dosing Est GFR ( Amer) Est GFR (Non-Af Amer) BUN/Creatinine Ratio Glucose POC Glucose 206 H 90 Calcium AST ALT 07/21/20 07/21/20 07/21/20 09:22 11:52 16:50 WBC RBC Hgb Hct MCV MCH MCHC RDW Std Deviation RDW Coeff of Savita Plt Count MPV Sodium 139 Potassium 4.2 Chloride 108 H Carbon Dioxide 24 Anion Gap 7.0 BUN 34 H Creatinine 0.99 Est Cr Clr Drug Dosing 51.2 Est GFR ( Amer) 64.6 Est GFR (Non-Af Amer) 55.7 BUN/Creatinine Ratio 34.6 H Glucose 196 H POC Glucose 171 H 175 H Calcium 8.2 L AST 19 ALT 39 PG Care Time/CCT Total # of Minutes Spent Total Time Spent with Patient: Total time spent is greater than 50% in coordination of care (as documented) at patient's floor/unit and/or counseling patient: Coding Level of Care Code 92987 Subseq Hosp Care Lvl 3 Diagnoses Pneumonia due to COVID-19 virus U07.1; J12.82 Acute respiratory failure with hypoxia J96.01 Syncope R55 Syncope type: unspecified Atrial fibrillation I48.0 Atrial fibrillation type: paroxysmal S/P total hip arthroplasty Z96.649 Hypertension I10 Diabetes mellitus type 2, uncontrolled E11.65 DULCE (obstructive sleep apnea) G47.33 Acute kidney injury N17.9 Thrombocytosis D47.3 Adjustment reaction F43.20 Breast nodule N63.0 DVT prophylaxis Z29.9 (1) Atrial fibrillation Atrial fibrillation type: paroxysmal Qualified Code(s): I48.0 - Paroxysmal atrial fibrillation (2) Syncope Syncope type: unspecified Qualified Code(s): R55 - Syncope and collapse
[2020-07-21] MEDS ORDERED: CYCLOBENZAPRINE HCL 5 MG TAB PO PRN (20:15)
[2020-07-21] MEDS: INSULIN GLARGINE SOLOSTAR 100 UNITS/ML 3 ML PEN SC SCH (21:14)
[2020-07-22 07:18] LABS: Hemoglobin 13.5 g/dL (12.0-16.0); Mean Corpuscular Hemoglobin 30.3 pg (25-34); Mean Corpuscular Hgb Conc 34.6 g/dL (32-36); Mean Corpuscular Volume 87.4 fL (80-100); Mean Platelet Volume 9.4 fL (7.4-10.4); Platelet Count 1151 K/uL (130-400); RDW Coefficient of Variation 13.7 % (11.5-14.5); RDW Standard Deviation 43.8 fL (36.4-46.3); Red Blood Count 4.46 M/uL (4.2-5.4); White Blood Count 12.72 K/uL (4.8-10.8)
[2020-07-22 07:49] LABS: Ferritin 521.3 ng/ml (8-388)
[2020-07-22 08:07] LABS: Basophils # (auto) 0.02 K/uL (0-0.2); Basophils % (auto) 0.2 %; Eosinophils # (auto) 0.14 K/uL (0-0.5); Eosinophils % (auto) 1.1 %; Immature Granulocytes # (auto) 0.12 K/uL (0.00-0.02); Immature Granulocytes % (auto) 0.9 %; Lymphocytes # (auto) 2.99 K/uL (1.2-3.4); Lymphocytes % (auto) 23.5 %; Monocytes % (auto) 9.4 %; Neutrophils # (auto) 8.25 K/uL (1.4-6.5); Neutrophils % (auto) 64.9 %
[2020-07-22] MEDS: CHOLECALCIFEROL 1,000 UNITS 25 MCG TAB PO SCH (08:41)
[2020-07-22] MEDS: APIXABAN 5 MG TABLET PO SCH ×2 (08:41→21:12)
[2020-07-22] MEDS: ASPIRIN 81 MG ECTAB PO SCH (08:41)
[2020-07-22] MEDS: METOPROLOL SUCC 25MG EXT REL TAB PO SCH ×2 (08:42→21:12)
[2020-07-22] MEDS: hydroCHLOROthiazide 25 MG TAB PO SCH (08:42)
[2020-07-22] MEDS: OLMESARTAN MEDOXOMIL 40 MG TAB PO SCH (08:42)
[2020-07-22] MEDS: ZINC SULFATE 220 MG CAPSULE PO SCH (08:42)
[2020-07-22] MEDS: dexAMETHasone 4 MG TAB PO SCH (08:42)
[2020-07-22] MEDS: INSULIN ASPART 100 UNITS/ML 3 ML PEN SC SCH ×4 (08:54→20:59)
[2020-07-22] MEDS: INSULIN GLARGINE SOLOSTAR 100 UNITS/ML 3 ML PEN SC SCH (21:00)
--- NOTE | 2020-07-22 22:20 | Hospitalist Progress Note ---
Date of Service July 22, 2020 Assessment & Plan (1) Thrombocytosis: again worse today. 539 on 07/15. 1151 07/22. suspect this is reactive to her COVID but quite unusual as COVID typically causes thrombocytopenia. she is not on meds that would cause reactive thrombocytosis. peripheral smear without features of myeloproliferative d/o formal consult placed to Dr Valles from heme/onc in meantime he advised Fe studies (wnl) and JAK2 mutation along with JOVI-reticulin cbc in am continue daily asa 81mg (2) Pneumonia due to COVID-19 virus: stable, improving, no symptoms at this point. stable on 2 L NC O2. Cont Dexamethasone 6 mg daily, day 8 of 10 today. s/p 5-day course of remdesivir IV. AST/ALT have remained normal. Dimer elevated, but has been on eliquis 5mg BID consistently pre- hospitalization. CTA chest at admission also w/o PE. (3) Acute respiratory failure with hypoxia: 2nd COVID-19 pneumonia. Stable. Improving. Weaning the NC O2. see above. (4) Syncope: Present on admission. Suspect it was secondary to COVID-[address] head and CT cervical spine negative for fracture/injury/ICH/cva at admission. (5) Atrial fibrillation: PAF. Remains in NSR, however. Continue Eliquis BID. can d/c tele. (6) S/P total hip arthroplasty: had right MONY on 07/04 at [facility] she is WBAT on right leg, ambulates with walker PT/OT, at baseline she lives at [facility] went to see ortho after she had syncope event, x-ray of right hip showed no fracture, implant in good position PT, OT both recommending rehab - excellent candidate for such daughter in support of this, and patient agreeable to [facility] on Saturday if medical issues stable continue PT, OT (7) Hypertension: cont ARB, BB and HCTZ BPs reasonably controlled with some in the 150s/160s has required intermittent amlodipine order norvasc 2.5mg daily if BPs remain 150 or higher systolically (8) Diabetes mellitus type 2, uncontrolled: cont lantus and novolog adjust novolog again (9) DULCE (obstructive sleep apnea): CPAP, but patient noncompliant with such (10) Acute kidney injury: resolved 2nd COVID-19 (11) Adjustment reaction: pt despondent for the last few days in light of her current medical issues. this was better yesterday/today. follow. (12) Breast nodule: right seen incidentally on CT chest patient and daughter aware of this finding will need mammo and u/s post-d/c (13) DVT prophylaxis: eliquis 5mg BID updated daughter extensively by phone yesterday Admission and Anticipated Discharge Date Admission Date: July 15, 2020 Subjective no events overnight tele wnl feels good eating well no pulmonary complaints still on 2 l NC but with stable o2 sats not motivated; she said "I like to sleep" denies once again that she is not depressed I offered to bring her crosswords or magazines tomorrow - declined Review of Systems Constitutional: + fatigue and + weakness; no fever, no chills and no anorexia Respiratory: no cough, no dyspnea and no dyspnea on exertion Cardiovascular: no chest pain Gastrointestinal: no abdominal pain, no nausea and no vomiting Musculoskeletal: + joint pain (right hip - mild, but controlled ) Physical Exam Constitutional: no acute distress and no altered mental status ENMT: external ear and nose normal, oropharynx normal Respiratory: normal respiratory effort, lungs clear to auscultation no respiratory distress Auscultation: + crackles (scattered, b/l ); no wheezes Cardiovascular: Rate/Rhythm: regular rate and regular rhythm Heart Sounds: normal S1 and normal S2 Vessels: posterior tibial pulses present and dorsalis pedis pulses present; no JVD Extremities: no edema Gastrointestinal (Abdomen): normal bowel sounds, soft, nontender, no hepatosplenomegaly Skin: well-healed incision anterior proximal thigh Psychiatric: Orientation: alert and oriented x 3 Results & Data Results & Data ([facility]) Vital Signs (Past 12 Hours) Vital Signs Temp Pulse Pulse Pulse Resp BP BP 07/22/20 21:11 71 147/78 H 07/22/20 16:00 80 07/22/20 14:32 36.6 C 81 18 154/89 H 07/22/20 11:55 36.8 C 67 20 153/77 H Pulse Ox 07/22/20 21:11 07/22/20 16:00 07/22/20 14:32 95 07/22/20 11:55 96 Laboratory Results Laboratory Results - last 24 hr 07/22/20 07/22/20 07/22/20 06:57 06:57 06:57 WBC 12.72 H RBC 4.46 Hgb 13.5 Hct 39.0 MCV 87.4 MCH 30.3 MCHC 34.6 RDW Std Deviation 43.8 RDW Coeff of Savita 13.7 Plt Count 1151 H* MPV 9.4 Immature Gran % (Auto) 0.9 Neut % (Auto) 64.9 Lymph % (Auto) 23.5 [place] % (Auto) 9.4 Eos % (Auto) 1.1 Baso % (Auto) 0.2 Neut # (Auto) 8.25 H Lymph # (Auto) 2.99 [place] # (Auto) 1.20 H Eos # (Auto) 0.14 Baso # (Auto) 0.02 Immature Gran # (Auto) 0.12 H POC Glucose Iron 82 Transferrin 170 L Transferrin % Sat 34 Ferritin 521.3 H JAK2 Exon 12 Mutation Calreticulin Exon 9 Mut Cancelled 07/22/20 07/22/20 07/22/20 06:57 07:59 09:12 WBC RBC Hgb Hct MCV MCH MCHC RDW Std Deviation RDW Coeff of Savita Plt Count MPV Immature Gran % (Auto) Neut % (Auto) Lymph % (Auto) [place] % (Auto) Eos % (Auto) Baso % (Auto) Neut # (Auto) Lymph # (Auto) [place] # (Auto) Eos # (Auto) Baso # (Auto) Immature Gran # (Auto) POC Glucose 73 Iron Transferrin Transferrin % Sat Ferritin JAK2 Exon 12 Mutation Pending Cancelled Calreticulin Exon 9 Mut Pending 07/22/20 07/22/20 07/22/20 11:52 16:43 19:59 WBC RBC Hgb Hct MCV MCH MCHC RDW Std Deviation RDW Coeff of Savita Plt Count MPV Immature Gran % (Auto) Neut % (Auto) Lymph % (Auto) [place] % (Auto) Eos % (Auto) Baso % (Auto) Neut # (Auto) Lymph # (Auto) [place] # (Auto) Eos # (Auto) Baso # (Auto) Immature Gran # (Auto) POC Glucose 118 H 234 H 199 H Iron Transferrin Transferrin % Sat Ferritin JAK2 Exon 12 Mutation Calreticulin Exon 9 Mut PG Care Time/CCT Total # of Minutes Spent Total Time Spent with Patient: Total time spent is greater than 50% in coordination of care (as documented) at patient's floor/unit and/or counseling patient: Coding Level of Care Code 97197 Subseq Hosp Care Lvl 2 Diagnoses Thrombocytosis D47.3 Pneumonia due to COVID-19 virus U07.1; J12.82 Acute respiratory failure with hypoxia J96.01 Syncope R55 Syncope type: unspecified Atrial fibrillation I48.0 Atrial fibrillation type: paroxysmal S/P total hip arthroplasty Z96.649 Hypertension I10 Diabetes mellitus type 2, uncontrolled E11.65 DULCE (obstructive sleep apnea) G47.33 Acute kidney injury N17.9 Adjustment reaction F43.20 Breast nodule N63.0 DVT prophylaxis Z29.9 (1) Syncope Syncope type: unspecified Qualified Code(s): R55 - Syncope and collapse (2) Atrial fibrillation Atrial fibrillation type: paroxysmal Qualified Code(s): I48.0 - Paroxysmal atrial fibrillation
[2020-07-23] MEDS: METOPROLOL SUCC 25MG EXT REL TAB PO SCH ×2 (09:09→21:36)
[2020-07-23] MEDS: dexAMETHasone 4 MG TAB PO SCH (09:09)
[2020-07-23] MEDS: hydroCHLOROthiazide 25 MG TAB PO SCH (09:10)
[2020-07-23] MEDS: OLMESARTAN MEDOXOMIL 40 MG TAB PO SCH (09:10)
[2020-07-23] MEDS: CHOLECALCIFEROL 1,000 UNITS 25 MCG TAB PO SCH (09:11)
[2020-07-23] MEDS: ZINC SULFATE 220 MG CAPSULE PO SCH (09:11)
[2020-07-23] MEDS: ASPIRIN 81 MG ECTAB PO SCH (09:12)
[2020-07-23] MEDS: APIXABAN 5 MG TABLET PO SCH ×2 (09:12→21:36)
[2020-07-23] MEDS: INSULIN ASPART 100 UNITS/ML 3 ML PEN SC SCH ×4 (09:55→21:21)
--- NOTE | 2020-07-23 10:01 | Consultation Report ---
DATE OF CONSULTATION: 07/23/2020 REASON FOR CONSULTATION: Thrombocytosis (primary versus secondary). HISTORY OF PRESENT ILLNESS: The patient is a pleasant 75-year-old female patient who was admitted to [facility] on 07/15/2020 status post syncopal episode. She did not immediately seek medical attention and actually visited with her orthopedist for hip pain. Apparently, she had mentioned to the orthopedist about this episode and was recommended to come to the Emergency Room. When she presented to [facility]'s Emergency Room, her pulse oximetry was in the mid 80s. Her COVID-19 test was positive. The patient is unsure of contacts. Thus far for COVID-19, she has received remdesivir and dexamethasone as well as supplemental oxygen. The patient's course has been complicated by a steadily rising platelet count. I was alerted by Dr. Haider Ferrera a couple of days ago reporting her platelet count close to a million. I had recommended a daily peripheral blood counts and for completeness sake JAK2 and Calreticulin mutations to rule out a primary process. However, upon review of her past several peripheral blood counts her platelets were at baseline in the 500 range and have precipitously risen up to 1.2 million. The patient is showing no evidence of thrombosis or bleeding at this time. She is on prophylactic blood thinner as well as daily aspirin therapy. PAST MEDICAL HISTORY: Significant for hypertension and a previous stroke. PAST SURGICAL HISTORY: Positive for appendectomy. MEDICATIONS PRIOR TO ADMISSION: None. ALLERGIES: None. SOCIAL HISTORY: The patient lives independently. She is a nonsmoker, nondrinker, non-illicit drug user. FAMILY HISTORY: Noncontributory. REVIEW OF SYSTEMS: CONSTITUTIONAL: Status post syncopal episode, positive for COVID, other than hypoxemia has been otherwise relatively asymptomatic. She denies anorexia or weight loss. No fevers, chills or sweats. SKIN: No rashes or lesions. No history of dermatoses. HEENT: Negative for headaches, lightheadedness or dizziness. No acute visual or hearing deficits. No sinus symptoms, sore throat or dysphagia. LYMPH: No history of lymphoproliferative disease. CARDIAC: No history of coronary artery disease, no angina or palpitations. PULMONARY: She has multifocal COVID pneumonia. She is not acutely short of breath or dyspneic. No cough or hemoptysis. GASTROINTESTINAL: Negative for abdominal pain, nausea, vomiting, diarrhea or constipation, hematochezia or melena stools. GENITOURINARY: No hematuria, dysuria, urinary incontinence. PSYCHIATRIC: Negative for anxiety or depression. ENDOCRINE: Negative for diabetes or thyroid disease. MUSCULOSKELETAL: Negative for arthralgias or focal muscle weakness. HEMATOLOGIC: Positive for thrombocytosis. PHYSICAL EXAMINATION: GENERAL: Very pleasant 75-year-old otherwise healthy female. Awake, alert and appropriate, in no acute distress. VITAL SIGNS: Temperature 36.7, pulse 63, respiratory rate 18, blood pressure 155/76. SKIN: Warm, dry, noncyanotic without petechia, rash or ecchymosis. HEENT: Head is atraumatic, normocephalic. Eyes: PERRLA, EOMI. Sclerae nonicteric. No conjunctival injection. Nares are patent without rhinorrhea or discharge. Throat is clear. Tongue midline. Mucous membranes are moist. No buccal lesions or ulcerations. NECK: Supple. LYMPHATICS: No cervical or supraclavicular lymphadenopathy. HEART: Regular rate and rhythm. No clicks, rubs, murmurs or gallops. LUNGS: Fine bibasilar crackles heard posteriorly. ABDOMEN: Soft, nontender, nondistended. EXTREMITIES: No clubbing, cyanosis or edema. MUSCULOSKELETAL: Strength and pulses are equal in all 4 quadrants. NEUROLOGICALLY: She is awake, alert and oriented x3. RADIOGRAPHIC DATA: CTA of the chest done on admission, no evidence of pulmonary embolism. She has multifocal ground-glass pulmonary opacities consistent with multifocal pneumonia and additionally, there is a 2.4 cm right breast nodule. LABORATORY DATA: CBC from 07/22/2020, WBC count 12,720, hemoglobin 13.5, platelet count 1.1 million. Absolute neutrophil count 8250. Iron studies, serum iron 82, transferrin 170, ferritin 521.3. IMPRESSION: 1. Thrombocytosis, most likely secondary. 2. 2.4 cm right breast nodule. 3. COVID-19 pneumonia. PLAN: It was my pleasure to visit with the patient today at bedside. She was awake, alert and appropriate, somewhat dumbfounded on how she contracted COVID-19. She seems to be progressing along quite well. Again, I reviewed her platelet count over the past week or so and she has had a steady climb from the 500,000 range up into the present measurement of 1.1 million. Peripheral smear was examined by Dr. Gina Monk and she would agree that most likely this is a secondary process. Nonetheless, for completeness sake obtained a JAK2 and Calreticulin mutations, both of these can be seen in individuals with underlying essential thrombocythemia. The patient remains on prophylactic blood thinner and daily aspirin. I suspect her platelet count has approached marissa and should start to retreat towards normal. I have asked the patient to reconvene with me in the office in the next week or two once she is fully recovered. I would not recommend cytoreductive therapy as again I anticipate spontaneous resolution over time. Lastly, at some point, perhaps during her admission arrange for diagnostic mammogram as she may have an underlying breast cancer, yet to be diagnosed. I have no further recommendations and will periodically follow with her during the remainder of hospitalization. Thank you very much for allowing me to participate in her care.
--- NOTE | 2020-07-23 19:43 | Hospitalist Progress Note ---
Date of Service July 23, 2020 Assessment & Plan (1) Thrombocytosis: 539 on 07/15. 1151 07/22. suspect this is reactive to her COVID but quite unusual as COVID typically causes thrombocytopenia. she is not on meds that would cause reactive thrombocytosis. peripheral smear without features of myeloproliferative d/o formal consult from Dr Valles from heme/onc appreciated. he feels this is likely reactive. Fe studies wnl. KAK2 mutation along with JOVI-reticulin are pending. Dr Valles to see in f/u post-discharge. cbc in am continue daily asa 81mg (2) Pneumonia due to COVID-19 virus: improved/resolved. Cont Dexamethasone 6 mg daily, day 9 of 10 today. s/p 5-day course of remdesivir IV. AST/ALT have remained normal. (3) Acute respiratory failure with hypoxia: 2nd COVID-19 pneumonia. improving/resolved. O2 now off. (4) Syncope: Present on admission. Suspect it was secondary to COVID-19 infection and feeling weak from such. (5) Atrial fibrillation: PAF. Remains in NSR, however. Continue Eliquis BID. (6) S/P total hip arthroplasty: had right MONY on 07/04 at [facility] she is WBAT on right leg, ambulates with walker PT/OT, at baseline she lives at [facility] [place] went to see ortho after she had syncope event, x-ray of right hip showed no fracture, implant in good position PT, OT both recommending rehab - excellent candidate for such daughter in support of this, and patient agreeable to [facility] on Saturday if medical issues stable continue PT, OT (7) Hypertension: cont ARB, BB and HCTZ (8) Diabetes mellitus type 2, uncontrolled: cont lantus and novolog adjust novolog again for better meal-coverage (9) DULCE (obstructive sleep apnea): CPAP, but patient noncompliant with such (10) Acute kidney injury: resolved 2nd COVID-19 (11) Adjustment reaction: pt despondent for the last few days in light of her current medical issues. this has been better. (12) Breast nodule: right seen incidentally on CT chest patient and daughter aware of this finding will need mammo and u/s post-d/c (13) DVT prophylaxis: eliquis 5mg BID updated daughter extensively this week Admission and Anticipated Discharge Date Admission Date: July 15, 2020 Subjective patient's NC was out of her nose when I walked in for rounds. I checked her O2 sats - 93/94% in RA. I fully removed the NC - 10 min later o2 sats were still 93/94% in RA. patient refused labs today - "look at me!" (bruises from prior blood draws on arms). no new complaints. "I'm bored." Review of Systems Constitutional: + fatigue; no anorexia Respiratory: no cough, no dyspnea and no dyspnea on exertion Cardiovascular: no chest pain Gastrointestinal: no abdominal pain, no nausea, no vomiting and no diarrhea/loose stools Physical Exam Constitutional: no acute distress and no altered mental status ENMT: external ear and nose normal, oropharynx normal Respiratory: normal respiratory effort, lungs clear to auscultation no respiratory distress Auscultation: + crackles (scattered, b/l ); no wheezes Cardiovascular: Rate/Rhythm: regular rate and regular rhythm Heart Sounds: normal S1 and normal S2 Vessels: posterior tibial pulses present and dorsalis pedis pulses present; no JVD Extremities: no edema Gastrointestinal (Abdomen): normal bowel sounds, soft, nontender, no hepatosplenomegaly Psychiatric: Orientation: alert and oriented x 3 Affect: + flat affect Results & Data Results & Data ([facility]) Vital Signs (Past 12 Hours) Vital Signs Temp Pulse Resp BP BP Pulse Ox 07/23/20 15:28 36.5 C 76 18 132/79 92 07/23/20 08:03 36.7 C 63 18 155/76 H 95 refused labs today no cbc available PG Care Time/CCT Total # of Minutes Spent Total Time Spent with Patient: Total time spent is greater than 50% in coordination of care (as documented) at patient's floor/unit and/or counseling patient: Coding Level of Care Code 42904 Subseq Hosp Care Lvl 2 Diagnoses Thrombocytosis D47.3 Pneumonia due to COVID-19 virus U07.1; J12.82 Acute respiratory failure with hypoxia J96.01 Syncope R55 Syncope type: unspecified Atrial fibrillation I48.0 Atrial fibrillation type: paroxysmal S/P total hip arthroplasty Z96.649 Hypertension I10 Diabetes mellitus type 2, uncontrolled E11.65 DULCE (obstructive sleep apnea) G47.33 Acute kidney injury N17.9 Adjustment reaction F43.20 Breast nodule N63.0 DVT prophylaxis Z29.9 (1) Atrial fibrillation Atrial fibrillation type: paroxysmal Qualified Code(s): I48.0 - Paroxysmal atrial fibrillation (2) Syncope Syncope type: unspecified Qualified Code(s): R55 - Syncope and collapse
[2020-07-23] MEDS: INSULIN GLARGINE SOLOSTAR 100 UNITS/ML 3 ML PEN SC SCH (21:21)
[2020-07-24] MEDS: ASPIRIN 81 MG ECTAB PO SCH (08:49)
[2020-07-24] MEDS: CHOLECALCIFEROL 1,000 UNITS 25 MCG TAB PO SCH (08:49)
[2020-07-24] MEDS: APIXABAN 5 MG TABLET PO SCH ×2 (08:49→20:37)
[2020-07-24] MEDS: dexAMETHasone 4 MG TAB PO SCH (08:50)
[2020-07-24] MEDS: hydroCHLOROthiazide 25 MG TAB PO SCH (08:50)
[2020-07-24] MEDS: ZINC SULFATE 220 MG CAPSULE PO SCH (08:51)
[2020-07-24] MEDS: OLMESARTAN MEDOXOMIL 40 MG TAB PO SCH ×2 (08:51→08:55)
[2020-07-24] MEDS: METOPROLOL SUCC 25MG EXT REL TAB PO SCH ×3 (08:51→20:37)
[2020-07-24] MEDS: INSULIN ASPART 100 UNITS/ML 3 ML PEN SC SCH ×4 (09:04→20:59)
[2020-07-24] MEDS: INSULIN GLARGINE SOLOSTAR 100 UNITS/ML 3 ML PEN SC SCH (21:00)
--- NOTE | 2020-07-25 01:16 | Hospitalist Progress Note ---
Date of Service July 25, 2020 Assessment & Plan (1) Thrombocytosis: 539 on 07/15. 1151 07/22. suspect this is reactive to her COVID but quite unusual as COVID typically causes thrombocytopenia. she is not on meds that would cause reactive thrombocytosis. peripheral smear without features of myeloproliferative d/o formal consult from Dr Valles from heme/onc appreciated. he feels this is likely reactive. Fe studies wnl. KAK2 mutation along with JOVI-reticulin are pending. Dr Valles to see in f/u post-discharge. cbc in am - I stressed to her the importance of having her blood taken in the am tomorrow. continue daily asa 81mg. (2) Pneumonia due to COVID-19 virus: improved/resolved. Cont Dexamethasone 6 mg daily, day 10 of 10 today. stop the dex after today's dose. s/p 5-day course of remdesivir IV. AST/ALT have remained normal. o2 has been weaned off x 24 hours. will need to check her o2 sats with walking, however. (3) Acute respiratory failure with hypoxia: 2nd COVID-19 pneumonia. resolved. O2 has been off x 24 hours. (4) Syncope: Present on admission. Suspect it was secondary to COVID-19 infection and feeling weak from such. no dizziness, etc since admission. (5) Atrial fibrillation: PAF. Continue metoprolol. Continue Eliquis BID. (6) S/P total hip arthroplasty: had right MONY on 07/04 at [facility] she is WBAT on right leg, ambulates with walker at baseline she lives at [facility] [place] went to see ortho after she had syncope event, x-ray of right hip showed no fracture, implant in good position ortho sent her to hospital due to the syncope event PT, OT both recommending rehab daughter in support of this, and patient agreeable to [facility] on Saturday - needs insurance auth? continue PT, OT (7) Hypertension: cont ARB, BB and HCTZ controlled (8) Diabetes mellitus type 2, uncontrolled: cont lantus and novolog tight novolog coverage (9) DULCE (obstructive sleep apnea): CPAP, but patient noncompliant with such (10) Acute kidney injury: resolved 2nd COVID-19 peak 1.38 most recent 0.99 (11) Adjustment reaction: pt was despondent over the last few days in light of her current medical issues. this has been better. denies long-standing, chronic depression however. (12) Breast nodule: right seen incidentally on CT chest patient and daughter aware of this finding will need mammo and u/s post-d/c (13) DVT prophylaxis: eliquis 5mg BID updated daughter extensively this week hopefully to [facility] on SATURDAY Admission and Anticipated Discharge Date Admission Date: July 15, 2020 Subjective no issues overnight patient again refused her blood draw this am no new complaints feels good ready to leave the hospital Review of Systems Respiratory: no cough, no dyspnea and no dyspnea on exertion Cardiovascular: no chest pain and no edema Gastrointestinal: no abdominal pain, no nausea, no vomiting and no diarrhea/loose stools Physical Exam Constitutional: no acute distress and no altered mental status ENMT: external ear and nose normal, oropharynx normal Respiratory: no respiratory distress Auscultation: + crackles (scattered, b/l -- scant ); no wheezes Cardiovascular: Rate/Rhythm: regular rate and regular rhythm Heart Sounds: normal S1 and normal S2 Vessels: posterior tibial pulses present and dorsalis pedis pulses present; no JVD Extremities: no edema Gastrointestinal (Abdomen): normal bowel sounds, soft, nontender, no hepatosplenomegaly Psychiatric: Orientation: alert and oriented x 3 Affect: + flat affect Results & Data Results & Data ([facility]) Vital Signs (Past 12 Hours) Vital Signs Temp Pulse Resp BP BP Pulse Ox 07/25/20 00:00 36.7 C 80 20 124/72 94 07/24/20 20:30 36.8 C 78 16 135/74 94 07/24/20 16:53 36.4 C L 79 18 133/78 95 Laboratory Results Laboratory Results - last 24 hr 07/24/20 07/24/20 07/24/20 07:20 12:02 16:48 POC Glucose 79 172 H 202 H 07/24/20 20:36 POC Glucose 209 H PG Care Time/CCT Total # of Minutes Spent Total Time Spent with Patient: Total time spent is greater than 50% in coordination of care (as documented) at patient's floor/unit and/or counseling patient: Coding Level of Care Code 36061 Subseq Hosp Care Lvl 2 Diagnoses Thrombocytosis D47.3 Pneumonia due to COVID-19 virus U07.1; J12.82 Acute respiratory failure with hypoxia J96.01 Syncope R55 Syncope type: unspecified Atrial fibrillation I48.0 Atrial fibrillation type: paroxysmal S/P total hip arthroplasty Z96.649 Hypertension I10 Diabetes mellitus type 2, uncontrolled E11.65 DULCE (obstructive sleep apnea) G47.33 Acute kidney injury N17.9 Adjustment reaction F43.20 Breast nodule N63.0 DVT prophylaxis Z29.9 (1) Atrial fibrillation Atrial fibrillation type: paroxysmal Qualified Code(s): I48.0 - Paroxysmal atrial fibrillation (2) Syncope Syncope type: unspecified Qualified Code(s): R55 - Syncope and collapse
[2020-07-25] MEDS: APIXABAN 5 MG TABLET PO SCH ×2 (08:46→21:06)
[2020-07-25] MEDS: METOPROLOL SUCC 25MG EXT REL TAB PO SCH ×2 (08:47→21:05)
[2020-07-25] MEDS: ZINC SULFATE 220 MG CAPSULE PO SCH (08:47)
[2020-07-25] MEDS: ASPIRIN 81 MG ECTAB PO SCH (08:47)
[2020-07-25] MEDS: OLMESARTAN MEDOXOMIL 40 MG TAB PO SCH (08:47)
[2020-07-25] MEDS: CHOLECALCIFEROL 1,000 UNITS 25 MCG TAB PO SCH (08:47)
[2020-07-25] MEDS: hydroCHLOROthiazide 25 MG TAB PO SCH (08:47)
[2020-07-25 08:51] LABS: Hematocrit (blood only) 39.5 % (37-47); Hemoglobin 13.5 g/dL (12.0-16.0); Mean Corpuscular Hgb Conc 34.2 g/dL (32-36); Mean Corpuscular Volume 87.8 fL (80-100); Mean Platelet Volume 9.2 fL (7.4-10.4); Platelet Count 850 K/uL (130-400); RDW Coefficient of Variation 13.7 % (11.5-14.5); RDW Standard Deviation 43.9 fL (36.4-46.3); White Blood Count 15.14 K/uL (4.8-10.8)
[2020-07-25] MEDS: INSULIN ASPART 100 UNITS/ML 3 ML PEN SC SCH ×4 (09:06→20:54)
[2020-07-25 09:26] LABS: BUN Creatinine Ratio 40.5 (10-20); Calcium 9.2 mg/dl (8.5-10.1); Creatinine Clr Calc Pharmacy 50.4 ml/min; Est GFR (African American) 63.8; Est GFR (Non-African American) 55.1; Potassium 4.2 mmol/L (3.5-5.1)
--- NOTE | 2020-07-25 16:03 | Hospitalist Progress Note ---
Date of Service July 25, 2020 Assessment & Plan (1) Thrombocytosis: 539 on 07/15. 1151 07/22. suspect this is reactive to her COVID she is not on meds that would cause reactive thrombocytosis. peripheral smear without features of myeloproliferative d/o formal consult from Dr Valles from heme/onc appreciated. he feels this is likely reactive. platelets down to 850k today, trending downward Fe studies wnl. KAK2 mutation along with JOVI-reticulin are pending. Dr Valles to see in f/u post-discharge. continue daily asa 81mg. (2) Pneumonia due to COVID-19 virus: improved/resolved. completed 10 days of Dexamethasone 6 mg daily s/p 5-day course of remdesivir IV. AST/ALT have remained normal. o2 has been weaned off for 48 hours (3) Acute respiratory failure with hypoxia: 2nd COVID-19 pneumonia. resolved. O2 has been off x 48 hours. (4) Syncope: Present on admission. Suspect it was secondary to COVID-19 infection and feeling weak from such. no dizziness, etc since admission. (5) Atrial fibrillation: PAF. Continue metoprolol. Continue Eliquis BID. (6) S/P total hip arthroplasty: had right MONY on 07/04 at [facility] she is WBAT on right leg, ambulates with walker at baseline she lives at [facility] went to see ortho after she had syncope event, x-ray of right hip showed no fracture, implant in good position ortho sent her to hospital due to the syncope event PT, OT both recommending rehab daughter in support of this, and patient agreeable to [facility] tomorrow, awaiting insurance auth continue PT, OT (7) Hypertension: cont ARB, BB and HCTZ controlled (8) Diabetes mellitus type 2, uncontrolled: cont lantus and novolog tight novolog coverage monitor for hypoglycemia, no episodes today (9) DULCE (obstructive sleep apnea): CPAP, but patient noncompliant with such (10) Acute kidney injury: resolved 2nd COVID-19 peak 1.38 most recent 0.99 (11) Adjustment reaction: pt was despondent over the last few days in light of her current medical issues. this has been better. denies long-standing, chronic depression however flat affect today (12) Breast nodule: right seen incidentally on CT chest patient and daughter aware of this finding will need mammo and u/s post-d/c (13) DVT prophylaxis: eliquis 5mg BID plan for d/c tomorrow Admission and Anticipated Discharge Date Admission Date: July 15, 2020 Subjective patient doing better, still with flat affect she is upset that there is no answer from insurance on [facility] encouraged her that she is on room air, platelets going down she denies fever, dyspnea, cough, chest pain, GI symptoms admits to being weak, no significant pain with right hip MONY reviewed chart spoke with CM, likely for d/c tomorrow to rehab Review of Systems Review of Systems: All systems reviewed & are unremarkable except as noted in Subjective Physical Exam Constitutional: WD/WN, vitals as above Neck: trachea midline, no thyromegaly Respiratory: normal respiratory effort, lungs clear to auscultation Cardiovascular: RRR, no murmur, no edema Gastrointestinal (Abdomen): normal bowel sounds, soft, nontender, no hepatosplenomegaly Musculoskeletal: no cyanosis or clubbing, extremities motor strength 5/5 Skin: no rashes, warm and dry Neurologic: patellar DTR's 2+ bilat, sensation intact and PERRL, EOMI, accommodation nl, no face palsy, no dysarthria Psychiatric: A+Ox3, euthymic affect Lymphatic: no cervical or axillary lymphadenopathy Results & Data Results & Data ([facility]) Vital Signs (Past 12 Hours) Vital Signs Temp Pulse Resp BP Pulse Ox 07/25/20 08:10 36.6 C 84 16 116/73 94 Laboratory Results Laboratory Results - last 24 hr 07/24/20 07/24/20 07/25/20 16:48 20:36 07:57 WBC RBC Hgb Hct MCV MCH MCHC RDW Std Deviation RDW Coeff of Savita Plt Count MPV Sodium Potassium Chloride Carbon Dioxide Anion Gap BUN Creatinine Est Cr Clr Drug Dosing Est GFR ( Amer) Est GFR (Non-Af Amer) BUN/Creatinine Ratio Glucose POC Glucose 202 H 209 H 85 Calcium 07/25/20 07/25/20 07/25/20 08:31 08:31 11:46 WBC 15.14 H RBC 4.50 Hgb 13.5 Hct 39.5 MCV 87.8 MCH 30.0 MCHC 34.2 RDW Std Deviation 43.9 RDW Coeff of Savita 13.7 Plt Count 850 H MPV 9.2 Sodium 137 Potassium 4.2 Chloride 106 Carbon Dioxide 23 Anion Gap 8.0 BUN 40 H Creatinine 1.00 Est Cr Clr Drug Dosing 50.4 Est GFR ( Amer) 63.8 Est GFR (Non-Af Amer) 55.1 BUN/Creatinine Ratio 40.5 H Glucose 139 H POC Glucose 109 H Calcium 9.2 Medications Administered Current Inpatient Medications Acetaminophen (Acetaminophen 325 Mg Tab) 650 mg PO Q4H PRN PRN Reason: Pain or Fever Stop: 08/15/20 00:01 Last Admin: 07/18/20 08:39 Dose: 650 mg Documented by: Albuterol (Albuterol Hfa 8 Gm Inhaler) 2 puffs INH QIDR PRN PRN Reason: Shortness Of Breath Or Wheezing Stop: 08/15/20 06:59 Apixaban (Apixaban 5 Mg Tablet) 5 mg PO BID [facility] Stop: 08/15/20 20:59 Last Admin: 07/25/20 08:46 Dose: 5 mg Documented by: Aspirin (A[facility]in 81 Mg Ectab) [facility] Stop: 08/17/20 09:59 Last Admin: 07/25/20 08:47 Dose: 81 mg Documented by: Cyclobenzaprine HCl (Cyclobenzaprine Hcl 5 Mg Tab) 5 mg PO BID PRN PRN Reason: muscle spasm Stop: 08/16/20 20:59 Dextrose (Dextrose 50% 50 Ml Syringe) 25 - 50 ml IV UD PRN; Protocol PRN Reason: Hypoglycemia Protocol Stop: 08/15/20 00:01 Glucagon (Glucagon For Inj 1 Mg Vial) 1 mg SQ UD PRN; Protocol PRN Reason: Hypoglycemia Protocol Stop: 08/15/20 00:01 Glucose (Glucose 10 Tabs/Tube) 4 - 8 tabs PO UD PRN; Protocol PRN Reason: Hypoglycemia Protocol Stop: 08/15/20 00:01 Glucose (Glucose 40% Gel 15 Gm Tube) 15 - 30 gm PO UD PRN; Protocol PRN Reason: Hypoglycemia Protocol Stop: 08/15/20 00:01 Hydrochlorothiazide (Hydrochlorothiazide 25 Mg Tab) 12.5 mg PO QAM [facility] Stop: 08/18/20 09:59 Last Admin: 07/25/20 08:47 Dose: 12.5 mg Documented by: Insulin Aspart (Insulin Aspart 100 Units/Ml 3 Ml Pen) 0 units SC ACHS [facility] Stop: 08/15/20 07:29 Last Admin: 07/25/20 12:35 Dose: 5 units Documented by: Insulin Glargine (Insulin Glargine Solostar 100 Units/Ml 3 Ml Pen) 8 units SC HS [facility] Stop: 08/17/20 20:59 Last Admin: 07/24/20 21:00 Dose: 8 units Documented by: Metoprolol Succinate (Metoprolol Succ 25mg Ext Rel Tab) 25 mg PO BID [facility] Stop: 08/18/20 08:59 Last Admin: 07/25/20 08:47 Dose: 25 mg Documented by: Miscellaneous (Carbohydrates For Hypoglycemia ) 15 - 30 gm PO UD PRN PRN Reason: Hypoglycemia Protocol Stop: 08/15/20 00:01 Olmesartan (Olmesartan Medoxomil 40 Mg Tab) 40 mg PO QAM [facility] Stop: 08/20/20 08:59 Last Admin: 07/25/20 08:47 Dose: 40 mg Documented by: Ondansetron HCl (Ondansetron Inj 2 Mg/Ml 2 Ml Vial) 4 mg IV Q6H PRN PRN Reason: Nausea Stop: 08/15/20 00:01 Vitamin D (Cholecalciferol 1,000 Units 25 Mcg Tab) 5,[facility] Stop: 08/15/20 08:59 Last Admin: 07/25/20 08:47 Dose: 5,000 units Documented by: Zinc Sulfate (Zinc Sulfate 220 Mg Capsule) 220 mg PO QAM [facility] Stop: 08/15/20 08:59 Last Admin: 07/25/20 08:47 Dose: 220 mg Documented by: PG Care Time/CCT Total # of Minutes Spent Total Time Spent with Patient: Total time spent is greater than 50% in coordination of care (as documented) at patient's floor/unit and/or counseling patient: Coding Level of Care Code 89478 Subseq Hosp Care Lvl 3 Diagnoses Thrombocytosis D47.3 Pneumonia due to COVID-19 virus U07.1; J12.82 Acute respiratory failure with hypoxia J96.01 Syncope R55 Syncope type: unspecified Atrial fibrillation I48.0 Atrial fibrillation type: paroxysmal S/P total hip arthroplasty Z96.649 Hypertension I10 Diabetes mellitus type 2, uncontrolled E11.65 DULCE (obstructive sleep apnea) G47.33 Acute kidney injury N17.9 Adjustment reaction F43.20 Breast nodule N63.0 DVT prophylaxis Z29.9 (1) Atrial fibrillation Atrial fibrillation type: paroxysmal Qualified Code(s): I48.0 - Paroxysmal atrial fibrillation (2) Syncope Syncope type: unspecified Qualified Code(s): R55 - Syncope and collapse
[2020-07-25] MEDS: INSULIN GLARGINE SOLOSTAR 100 UNITS/ML 3 ML PEN SC SCH (20:57)
[2020-07-26] MEDS: APIXABAN 5 MG TABLET PO SCH ×2 (08:29→20:49)
[2020-07-26] MEDS: CHOLECALCIFEROL 1,000 UNITS 25 MCG TAB PO SCH (08:29)
[2020-07-26] MEDS: METOPROLOL SUCC 25MG EXT REL TAB PO SCH ×2 (08:29→20:49)
[2020-07-26] MEDS: ASPIRIN 81 MG ECTAB PO SCH (08:29)
[2020-07-26] MEDS: hydroCHLOROthiazide 25 MG TAB PO SCH (08:29)
[2020-07-26] MEDS: OLMESARTAN MEDOXOMIL 40 MG TAB PO SCH (08:29)
[2020-07-26] MEDS: ZINC SULFATE 220 MG CAPSULE PO SCH (08:29)
[2020-07-26] MEDS: INSULIN ASPART 100 UNITS/ML 3 ML PEN SC SCH ×4 (11:09→20:50)
[2020-07-26] MEDS: INSULIN GLARGINE SOLOSTAR 100 UNITS/ML 3 ML PEN SC SCH (20:51)
--- NOTE | 2020-07-27 07:34 | Hospitalist Progress Note ---
Date of Service July 26, 2020 Assessment & Plan (1) Thrombocytosis: 539 on 07/15. 1151 07/22. suspect this is reactive to her COVID she is not on meds that would cause reactive thrombocytosis. peripheral smear without features of myeloproliferative d/o formal consult from Dr Valles from heme/onc appreciated. he feels this is likely reactive. platelets down to 850k on 07/25, trending downward Fe studies wnl. KAK2 mutation along with JOVI-reticulin are pending. Dr Valles to see in f/u post-discharge. continue daily asa 81mg. (2) Pneumonia due to COVID-19 virus: improved/resolved. completed 10 days of Dexamethasone 6 mg daily s/p 5-day course of remdesivir IV. AST/ALT have remained normal. o2 has been weaned off for 72 hours (3) Acute respiratory failure with hypoxia: 2nd COVID-19 pneumonia. resolved. O2 has been off x 48 hours. (4) Syncope: Present on admission. Suspect it was secondary to COVID-19 infection and feeling weak from such. no dizziness, etc since admission. (5) Atrial fibrillation: PAF. Continue metoprolol. Continue Eliquis BID. (6) S/P total hip arthroplasty: had right MONY on 07/04 at [facility] she is WBAT on right leg, ambulates with walker at baseline she lives at [facility] went to see ortho after she had syncope event, x-ray of right hip showed no fracture, implant in good position ortho sent her to hospital due to the syncope event PT, OT both recommending rehab daughter in support of this, and patient agreeable denied [facility] by insurance and peer to peer was not successful will need to go to SNF rehab (7) Hypertension: cont ARB, BB and HCTZ controlled (8) Diabetes mellitus type 2, uncontrolled: cont lantus and novolog tight novolog coverage monitor for hypoglycemia, no episodes today (9) DULCE (obstructive sleep apnea): CPAP, but patient noncompliant with such (10) Acute kidney injury: resolved 2nd COVID-19 peak 1.38 most recent 0.99 (11) Adjustment reaction: pt was despondent over the last few days in light of her current medical issues. this has been better. denies long-standing, chronic depression however flat affect today (12) Breast nodule: right seen incidentally on CT chest patient and daughter aware of this finding will need mammo and u/s post-d/c (13) DVT prophylaxis: eliquis 5mg BID plan for d/c tomorrow Admission and Anticipated Discharge Date Admission Date: July 15, 2020 Subjective patient is angry, frustrated that she is still here I explained that we are waiting on insurance auth spoke with CM, they told me insurance denied [facility], would approve SNF family and patient requested peer to peer I spoke with medical registrar at insurance [employer], would not overturn their decision, not enough medical complexity for [facility] her only option would be SNF rehab which she and her family do not want she is eating well, breathing comfortably, no serious pain with hip no fever/chills, no cough Review of Systems Review of Systems: All systems reviewed & are unremarkable except as noted in Subjective Physical Exam Constitutional: WD/WN, vitals as above Neck: trachea midline, no thyromegaly Respiratory: normal respiratory effort, lungs clear to auscultation Cardiovascular: RRR, no murmur, no edema Gastrointestinal (Abdomen): normal bowel sounds, soft, nontender, no hepatosplenomegaly Musculoskeletal: no cyanosis or clubbing, extremities motor strength 5/5 Skin: no rashes, warm and dry Neurologic: patellar DTR's 2+ bilat, sensation intact and PERRL, EOMI, accommodation nl, no face palsy, no dysarthria Psychiatric: A+Ox3, euthymic affect Lymphatic: no cervical or axillary lymphadenopathy Results & Data Results & Data ([facility]) Vital Signs (Past 12 Hours) Vital Signs Temp Pulse Resp BP Pulse Ox 07/26/20 23:46 36.7 C 73 16 107/68 94 07/26/20 20:47 91 H 111/68 93 Medications Administered Current Inpatient Medications Acetaminophen (Acetaminophen 325 Mg Tab) 650 mg PO Q4H PRN PRN Reason: Pain or Fever Stop: 08/15/20 00:01 Last Admin: 07/18/20 08:39 Dose: 650 mg Documented by: Albuterol (Albuterol Hfa 8 Gm Inhaler) 2 puffs INH QIDR PRN PRN Reason: Shortness Of Breath Or Wheezing Stop: 08/15/20 06:59 Apixaban (Apixaban 5 Mg Tablet) 5 mg PO BID [facility] Stop: 08/15/20 20:59 Last Admin: 07/26/20 20:49 Dose: 5 mg Documented by: Aspirin (Aspirin 81 Mg Ectab) [facility] [place] Stop: 08/17/20 09:59 Last Admin: 07/26/20 08:29 Dose: 81 mg Documented by: Cyclobenzaprine HCl (Cyclobenzaprine Hcl 5 Mg Tab) 5 mg PO BID PRN PRN Reason: muscle spasm Stop: 08/16/20 20:59 Dextrose (Dextrose 50% 50 Ml Syringe) 25 - 50 ml IV UD PRN; Protocol PRN Reason: Hypoglycemia Protocol Stop: 08/15/20 00:01 Glucagon (Glucagon For Inj 1 Mg Vial) 1 mg SQ UD PRN; Protocol PRN Reason: Hypoglycemia Protocol Stop: 08/15/20 00:01 Glucose (Glucose 10 Tabs/Tube) 4 - 8 tabs PO UD PRN; Protocol PRN Reason: Hypoglycemia Protocol Stop: 08/15/20 00:01 Glucose (Glucose 40% Gel 15 Gm Tube) 15 - 30 gm PO UD PRN; Protocol PRN Reason: Hypoglycemia Protocol Stop: 08/15/20 00:01 Hydrochlorothiazide (Hydrochlorothiazide 25 Mg Tab) 12.5 mg PO [facility] Stop: 08/18/20 09:59 Last Admin: 07/26/20 08:29 Dose: 12.5 mg Documented by: Insulin Aspart (Insulin Aspart 100 Units/Ml 3 Ml Pen) 0 units SC [facility] Stop: 08/15/20 07:29 Last Admin: 07/26/20 20:50 Dose: Not Given Documented by: Insulin Glargine (Insulin Glargine Solostar 100 Units/Ml 3 Ml Pen) 8 units SC [facility] Stop: 08/17/20 20:59 Last Admin: 07/26/20 20:51 Dose: 8 units Documented by: Metoprolol Succinate (Metoprolol Succ 25mg Ext Rel Tab) 25 mg PO BID [facility] Stop: 08/18/20 08:59 Last Admin: 07/26/20 20:49 Dose: 25 mg Documented by: Miscellaneous (Carbohydrates For Hypoglycemia ) 15 - 30 gm PO UD PRN PRN Reason: Hypoglycemia Protocol Stop: 08/15/20 00:01 Olmesartan (Olmesartan Medoxomil 40 Mg Tab) 40 mg PO [facility] Stop: 08/20/20 08:59 Last Admin: 07/26/20 08:29 Dose: 40 mg Documented by: Ondansetron HCl (Ondansetron Inj 2 Mg/Ml 2 Ml Vial) 4 mg IV Q6H PRN PRN Reason: Nausea Stop: 08/15/20 00:01 Vitamin D (Cholecalciferol 1,000 Units 25 Mcg Tab) 5,000 units PO [facility] Stop: 08/15/20 08:59 Last Admin: 07/26/20 08:29 Dose: 5,000 units Documented by: Zinc Sulfate (Zinc Sulfate 220 Mg Capsule) 220 mg [facility] [place] Stop: 08/15/20 08:59 Last Admin: 07/26/20 08:29 Dose: 220 mg Documented by: PG Care Time/CCT Total # of Minutes Spent Total Time Spent: 34 Total Time Spent with Patient: Total time spent is greater than 50% in coordination of care (as documented) at patient's floor/unit and/or counseling patient: 18 minutes spent on setting up peer to peer and speaking with insurance company 16 minutes on exam, reviewing chart, documentation Coding Level of Care Code 25984 Subseq Hosp Care Lvl 3 Diagnoses Thrombocytosis D47.3 Pneumonia due to COVID-19 virus U07.1; J12.82 Acute respiratory failure with hypoxia J96.01 Syncope R55 Syncope type: unspecified Atrial fibrillation I48.0 Atrial fibrillation type: paroxysmal S/P total hip arthroplasty Z96.649 Hypertension I10 Diabetes mellitus type 2, uncontrolled E11.65 DULCE (obstructive sleep apnea) G47.33 Acute kidney injury N17.9 Adjustment reaction F43.20 Breast nodule N63.0 DVT prophylaxis Z29.9 (1) Syncope Syncope type: unspecified Qualified Code(s): R55 - Syncope and collapse (2) Atrial fibrillation Atrial fibrillation type: paroxysmal Qualified Code(s): I48.0 - Paroxysmal atrial fibrillation
[2020-07-27] MEDS: APIXABAN 5 MG TABLET PO SCH ×2 (08:49→20:53)
[2020-07-27] MEDS: ASPIRIN 81 MG ECTAB PO SCH (08:49)
[2020-07-27] MEDS: CHOLECALCIFEROL 1,000 UNITS 25 MCG TAB PO SCH (08:50)
[2020-07-27] MEDS: hydroCHLOROthiazide 25 MG TAB PO SCH (08:50)
[2020-07-27] MEDS: METOPROLOL SUCC 25MG EXT REL TAB PO SCH ×2 (08:51→20:53)
[2020-07-27] MEDS: OLMESARTAN MEDOXOMIL 40 MG TAB PO SCH (08:51)
[2020-07-27] MEDS: ZINC SULFATE 220 MG CAPSULE PO SCH (08:51)
[2020-07-27] MEDS: INSULIN ASPART 100 UNITS/ML 3 ML PEN SC SCH ×4 (09:57→20:55)
[2020-07-27 10:52] LABS: Basophils # (auto) 0.03 K/uL (0-0.2); Basophils % (auto) 0.2 %; Eosinophils % (auto) 0.8 %; Hematocrit (blood only) 39.5 % (37-47); Hemoglobin 13.7 g/dL (12.0-16.0); Immature Granulocytes # (auto) 0.08 K/uL (0.00-0.02); Immature Granulocytes % (auto) 0.6 %; Lymphocytes # (auto) 2.44 K/uL (1.2-3.4); Mean Corpuscular Hgb Conc 34.7 g/dL (32-36); Mean Corpuscular Volume 86.6 fL (80-100); Mean Platelet Volume 9.4 fL (7.4-10.4); Monocytes # (auto) 0.81 K/uL (0.11-0.59); Monocytes % (auto) 6.3 %; Neutrophils # (auto) 9.36 K/uL (1.4-6.5); Neutrophils % (auto) 73.1 %; Platelet Count 796 K/uL (130-400); RDW Coefficient of Variation 14.1 % (11.5-14.5); RDW Standard Deviation 44.8 fL (36.4-46.3); Red Blood Count 4.56 M/uL (4.2-5.4); White Blood Count 12.82 K/uL (4.8-10.8)
[2020-07-27] MEDS: ACETAMINOPHEN 325 MG TAB PO PRN (11:57)
--- NOTE | 2020-07-27 15:26 | Hospitalist Progress Note ---
Date of Service July 27, 2020 Assessment & Plan (1) Thrombocytosis: 539 on 07/15. 1151 07/22. suspect this is reactive to her COVID she is not on meds that would cause reactive thrombocytosis. peripheral smear without features of myeloproliferative d/o formal consult from Dr Valles from heme/onc appreciated. he feels this is likely reactive. platelets down to 720k on 07/27, trending downward Fe studies wnl. KAK2 mutation along with JOVI-reticulin are pending. Dr Valles to see in f/u post-discharge. continue daily asa 81mg. (2) Pneumonia due to COVID-19 virus: improved/resolved. completed 10 days of Dexamethasone 6 mg daily s/p 5-day course of remdesivir IV. AST/ALT have remained normal. o2 has been weaned off for 4 days (3) Acute respiratory failure with hypoxia: 2nd COVID-19 pneumonia. resolved. breathing room air comfortably (4) Syncope: Present on admission. Suspect it was secondary to COVID-19 infection and feeling weak from such. no dizziness, etc since admission. (5) Atrial fibrillation: PAF. Continue metoprolol. Continue Eliquis BID. (6) S/P total hip arthroplasty: had right MONY on 07/04 at [facility] she is WBAT on right leg, ambulates with walker at baseline she lives at [facility] went to see ortho after she had syncope event, x-ray of right hip showed no fracture, implant in good position ortho sent her to hospital due to the syncope event PT, OT both recommending rehab daughter in support of this, and patient agreeable denied [facility] by insurance and peer to peer was not successful will need to go to SNF rehab (7) Hypertension: cont ARB, BB and HCTZ controlled (8) Diabetes mellitus type 2, uncontrolled: cont lantus and novolog tight novolog coverage monitor for hypoglycemia, no episodes today (9) DULCE (obstructive sleep apnea): CPAP, but patient noncompliant with such (10) Acute kidney injury: resolved 2nd COVID-19 peak 1.38 most recent 0.99 (11) Adjustment reaction: pt was despondent over the last few days in light of her current medical issues. this has been better. denies long-standing, chronic depression however flat affect for a few days daughter concerned about her speech, cognition, she specifically is requesting speech evaluation will consult speech therapy for completeness patient has been speaking clearly to me, I feel like she is depressed about her health issues the past month and being stuck in the hospital (12) Breast nodule: right seen incidentally on CT chest patient and daughter aware of this finding will need mammo and u/s post-d/c (13) DVT prophylaxis: eliquis 5mg BID plan for d/c to [facility] tomorrow Admission and Anticipated Discharge Date Admission Date: July 15, 2020 Subjective patient doing well, no acute issues today naturally she is upset about not being approved for [facility] plan for [facility] tomorrow, per CM she is eating well, no chest pain, no dyspnea hip pain well controlled Review of Systems Review of Systems: All systems reviewed & are unremarkable except as noted in Subjective Constitutional: + fatigue and + weakness; no fever Respiratory: no cough and no dyspnea Cardiovascular: no chest pain and no edema Gastrointestinal: no abdominal pain, no nausea, no vomiting, no constipation and no diarrhea/loose stools Musculoskeletal: + joint pain (right hip) and + muscle weakness Psychiatric: + depression Physical Exam Constitutional: WD/WN, vitals as above Neck: trachea midline, no thyromegaly Respiratory: normal respiratory effort, lungs clear to auscultation Cardiovascular: RRR, no murmur, no edema Gastrointestinal (Abdomen): normal bowel sounds, soft, nontender, no hepatosplenomegaly Musculoskeletal: no cyanosis or clubbing, extremities motor strength 5/5 Skin: no rashes, warm and dry Neurologic: patellar DTR's 2+ bilat, sensation intact and PERRL, EOMI, accommodation nl, no face palsy, no dysarthria Psychiatric: A+Ox3, euthymic affect Lymphatic: no cervical or axillary lymphadenopathy Results & Data Results & Data ([facility]) Vital Signs (Past 12 Hours) Vital Signs Temp Pulse Resp BP Pulse Ox 07/27/20 08:00 36.3 C L 77 18 107/66 98 Laboratory Results Laboratory Results - last 24 hr 07/26/20 07/26/20 07/27/20 16:46 20:04 07:29 WBC RBC Hgb Hct MCV MCH MCHC RDW Std Deviation RDW Coeff of Savita Plt Count MPV Immature Gran % (Auto) Neut % (Auto) Lymph % (Auto) [place] % (Auto) Eos % (Auto) Baso % (Auto) Neut # (Auto) Lymph # (Auto) [place] # (Auto) Eos # (Auto) Baso # (Auto) Immature Gran # (Auto) POC Glucose 120 H 123 H 122 H 07/27/20 07/27/20 10:35 12:18 WBC 12.82 H RBC 4.56 Hgb 13.7 Hct 39.5 MCV 86.6 MCH 30.0 MCHC 34.7 RDW Std Deviation 44.8 RDW Coeff of Savita 14.1 Plt Count 796 H MPV 9.4 Immature Gran % (Auto) 0.6 Neut % (Auto) 73.1 Lymph % (Auto) 19.0 [place] % (Auto) 6.3 Eos % (Auto) 0.8 Baso % (Auto) 0.2 Neut # (Auto) 9.36 H Lymph # (Auto) 2.44 [place] # (Auto) 0.81 H Eos # (Auto) 0.10 Baso # (Auto) 0.03 Immature Gran # (Auto) 0.08 H POC Glucose 122 H Medications Administered Current Inpatient Medications Acetaminophen (Acetaminophen 325 Mg Tab) 650 mg PO Q4H PRN PRN Reason: Pain or Fever Stop: 08/15/20 00:01 Last Admin: 07/27/20 11:57 Dose: 650 mg Documented by: Albuterol (Albuterol Hfa 8 Gm Inhaler) 2 puffs INH QIDR PRN PRN Reason: Shortness Of Breath Or Wheezing Stop: 08/15/20 06:59 Apixaban (Apixaban 5 Mg Tablet) 5 mg PO BID [facility] Stop: 08/15/20 20:59 Last Admin: 07/27/20 08:49 Dose: 5 mg Documented by: Aspirin (Aspirin 81 Mg Ectab) 81 mg PO QAM [facility] Stop: 08/17/20 09:59 Last Admin: 07/27/20 08:49 Dose: 81 mg Documented by: Cyclobenzaprine HCl (Cyclobenzaprine Hcl 5 Mg Tab) 5 mg PO BID PRN PRN Reason: muscle spasm Stop: 08/16/20 20:59 Last Admin: 07/27/20 08:51 Dose: 5 mg Documented by: Dextrose (Dextrose 50% 50 Ml Syringe) 25 - 50 ml IV UD PRN; Protocol PRN Reason: Hypoglycemia Protocol Stop: 08/15/20 00:01 Glucagon (Glucagon For Inj 1 Mg Vial) 1 mg SQ UD PRN; Protocol PRN Reason: Hypoglycemia Protocol Stop: 08/15/20 00:01 Glucose (Glucose 10 Tabs/Tube) 4 - 8 tabs PO UD PRN; Protocol PRN Reason: Hypoglycemia Protocol Stop: 08/15/20 00:01 Glucose (Glucose 40% Gel 15 Gm Tube) 15 - 30 gm PO UD PRN; Protocol PRN Reason: Hypoglycemia Protocol Stop: 08/15/20 00:01 Hydrochlorothiazide (Hydrochlorothiazide 25 Mg Tab) 12.5 mg PO QAM [facility] Stop: 08/18/20 09:59 Last Admin: 07/27/20 08:50 Dose: 12.5 mg Documented by: Insulin Aspart (Insulin Aspart 100 Units/Ml 3 Ml Pen) 0 units SC [facility] Stop: 08/15/20 07:29 Last Admin: 07/27/20 13:22 Dose: 7 units Documented by: Insulin Glargine (Insulin Glargine Solostar 100 Units/Ml 3 Ml Pen) 8 units SC [facility] Stop: 08/17/20 20:59 Last Admin: 07/26/20 20:51 Dose: 8 units Documented by: Metoprolol Succinate (Metoprolol Succ 25mg Ext Rel Tab) 25 mg PO BID [facility] Stop: 08/18/20 08:59 Last Admin: 07/27/20 08:51 Dose: 25 mg Documented by: Miscellaneous (Carbohydrates For Hypoglycemia ) 15 - 30 gm PO UD PRN PRN Reason: Hypoglycemia Protocol Stop: 08/15/20 00:01 Olmesartan (Olmesartan Medoxomil 40 Mg Tab) [facility] Stop: 08/20/20 08:59 Last Admin: 07/27/20 08:51 Dose: 40 mg Documented by: Ondansetron HCl (Ondansetron Inj 2 Mg/Ml 2 Ml Vial) 4 mg IV Q6H PRN PRN Reason: Nausea Stop: 08/15/20 00:01 Vitamin D (Cholecalciferol 1,000 Units 25 Mcg Tab) 5,000 [facility] [place] Stop: 08/15/20 08:59 Last Admin: 07/27/20 08:50 Dose: 5,000 units Documented by: Zinc Sulfate (Zinc Sulfate 220 Mg Capsule) 220 mg [facility] [place] Stop: 08/15/20 08:59 Last Admin: 07/27/20 08:51 Dose: 220 mg Documented by: PG Care Time/CCT Total # of Minutes Spent Total Time Spent with Patient: Total time spent is greater than 50% in coordination of care (as documented) at patient's floor/unit and/or counseling patient: Coding Level of Care Code 33808 Subseq Hosp Care Lvl 2 Diagnoses Thrombocytosis D47.3 Pneumonia due to COVID-19 virus U07.1; J12.82 Acute respiratory failure with hypoxia J96.01 Syncope R55 Syncope type: unspecified Atrial fibrillation I48.0 Atrial fibrillation type: paroxysmal S/P total hip arthroplasty Z96.649 Hypertension I10 Diabetes mellitus type 2, uncontrolled E11.65 DULCE (obstructive sleep apnea) G47.33 Acute kidney injury N17.9 Adjustment reaction F43.20 Breast nodule N63.0 DVT prophylaxis Z29.9 (1) Syncope Syncope type: unspecified Qualified Code(s): R55 - Syncope and collapse (2) Atrial fibrillation Atrial fibrillation type: paroxysmal Qualified Code(s): I48.0 - Paroxysmal a trial fibrillation
[2020-07-27] MEDS: INSULIN GLARGINE SOLOSTAR 100 UNITS/ML 3 ML PEN SC SCH (20:54)
[2020-07-28] MEDS: APIXABAN 5 MG TABLET PO SCH (08:49)
[2020-07-28] MEDS: METOPROLOL SUCC 25MG EXT REL TAB PO SCH (08:50)
[2020-07-28] MEDS: ASPIRIN 81 MG ECTAB PO SCH (08:50)
[2020-07-28] MEDS: ZINC SULFATE 220 MG CAPSULE PO SCH (08:50)
[2020-07-28] MEDS: hydroCHLOROthiazide 25 MG TAB PO SCH (08:51)
[2020-07-28] MEDS: OLMESARTAN MEDOXOMIL 40 MG TAB PO SCH (08:51)
[2020-07-28] MEDS: CHOLECALCIFEROL 1,000 UNITS 25 MCG TAB PO SCH (08:52)
[2020-07-28] MEDS: INSULIN ASPART 100 UNITS/ML 3 ML PEN SC SCH ×2 (08:54→13:28)
--- NOTE | 2020-07-28 11:22 | Discharge Summary ---
Date of Service July 28, 2020 Admission HPI Per Admitting Provider The patient is a 75-year-old female with a past medical history including CVA, hypertension, ovarian cystectomy, appendectomy, right hip pain post surgery and obesity. Patient presented to the emergency department with report of a syncopal episode while eating breakfast yesterday. She did not go to the hospital that day, but did have an appointment to see orthopedist in [place] and so she went there. She was told that her x-ray of her hip was normal, and that she should come to the ED here for assessment. Work-up in the emergency department at [facility] this evening revealed a pulse ox on room air of 86%, a positive COVID-19 test, CT scan of cervical spine which negative except for thyroid nodules, CT of head which was negative except for old lacunar infarcts, and a chest x-ray/CTA of chest which showed multifocal pneumonia without pulmonary emboli. Principal Diagnosis COVID 19 pneumonia with acute hypoxic respiratory failure Discharge Exam Constitutional WD/WN, vitals as above Neck trachea midline, no thyromegaly Respiratory normal respiratory effort, lungs clear to auscultation Cardiovascular RRR, no murmur, no edema Gastrointestinal (Abdomen) normal bowel sounds, soft, nontender, no hepatosplenomegaly Musculoskeletal no cyanosis or clubbing, extremities motor strength 5/5 Skin no rashes, warm and dry Neurologic patellar DTR's 2+ bilat, sensation intact and PERRL, EOMI, accommodation nl, no face palsy, no dysarthria Psychiatric Orientation: alert and oriented x 3 Affect: + flat affect Lymphatic no cervical or axillary lymphadenopathy Discharge Data Allergies Allergy/AdvReac Type Severity Reaction Status Date / Time No Known Allergies Allergy Unverified 11/14/16 15:09 Consultations 07/15/20 21:40 ED Decision to Admit Stat 07/22/20 08:30 Consult Hematology Routine Ordered Studies 07/15/20 18:40 CT angio chest PE protocol Urgent CT cervical spine wo con Urgent CT head/brain wo con Urgent US venous doppler LE RT Urgent Diabetes Follow up Diabetes Follow-up Needed for Newly Diagnosed Diabetes Hospital Course (1) Thrombocytosis: 539 on 07/15. 1151 07/22. suspect this is reactive to her COVID formal consult from Dr Valles from heme/onc appreciated. he feels this is likely reactive. platelets down to 720k on 07/27, trending downward Fe studies wnl. peripheral smear without features of myeloproliferative d/o JAK2 mutation along with JOVI-reticulin studies were NEGATIVE Dr Valles to see in f/u post-discharge. continue daily asa 81mg until platelets are normal (2) Pneumonia due to COVID-19 virus: improved/resolved. completed 10 days of Dexamethasone 6 mg daily s/p 5-day course of remdesivir IV. AST/ALT have remained normal. o2 has been weaned off for 5 days, no dyspnea (3) Acute respiratory failure with hypoxia: 2nd COVID-19 pneumonia. resolved. breathing room air comfortably (4) Syncope: Present on admission. Suspect it was secondary to COVID-19 infection and feeling weak from such. no dizziness, etc since admission. (5) Atrial fibrillation: PAF. Continue metoprolol. Continue Eliquis BID. (6) S/P total hip arthroplasty: had right MONY on 07/04 at [facility] she is WBAT on right leg, ambulates with walker at baseline she lives at [facility] went to see ortho after she had syncope event, x-ray of right hip showed no fracture, implant in good position ortho sent her to hospital due to the syncope event PT, OT both recommending rehab daughter in support of this, and patient agreeable denied [facility] by insurance and peer to peer was not successful will need to go to SNF rehab, go to [facility] today (7) Hypertension: cont ARB, BB and HCTZ controlled (8) Diabetes mellitus type 2, uncontrolled: cont lantus and novolog tight novolog coverage not previously prescribed medications start on Metformin ER 500mg in the evening, can increase to 1000mg after one week follow up with PCP once discharged to home from rehab she will need the followin. OneTouch Verio meter. 2. OneTouch Verio Test Strips - to check 1x/day. 3. OneTouch Delica Lancets 33 gauge - to check 1x/day. (9) DULCE (obstructive sleep apnea): CPAP, but patient noncompliant with such (10) Acute kidney injury: resolved 2nd COVID-19 peak 1.38 most recent 0.99 (11) Adjustment reaction: pt was despondent over the last few days in light of her current medical issues. this has been better. denies long-standing, chronic depression however flat affect for a few days daughter concerned about her speech, cognition, she specifically is requesting speech evaluation will consult speech therapy for completeness patient has been speaking clearly to me, I feel like she is depressed about her health issues the past month and being stuck in the hospital (12) Breast nodule: right seen incidentally on CT chest patient and daughter aware of this finding will need MAMMOGRAM and ULTRASOUND as outpatient (13) DVT prophylaxis: eliquis 5mg BID plan for d/c to [facility] today Total Time Total Time Spent Total Time Spent (In Minutes): 32 Total Time Includes: Examination of the Patient, Discharge Planning and Medication Reconciliation Discharge Plan Discharge Items Patient Disposition: Transfer [facility] Fac Reason For Visit: COVID-19 PNEUMONIA WITH HYPOXIA Discharge Diagnosis: COVID 19 pneumonia with acute hypoxic respiratory failure (resolved) Recent right total hip arthropasty Thrombocytosis from COVID, improving Condition on Discharge: Good Goals: improve strength and mobility to the point that you can go back home follow up with Dr. Valles for high platelet counts follow up with imaging for mammogram screening Activity: Resume your previous activity Weightbearing: Right weightbearing Weightbearing Comment: as tolerated Non-emergency contact: Primary Care Provider Call non-emergency contact if: you have any medication questions and your symptoms worsen Follow-up/Referrals: Jesus Valles DO [Physician] - (2 weeks for thrombocytosis) Jesus He MD [Primary Care Provider] - (one week after discharge from [facility]) Diet: Regular Addtl Attending Provider Instructions: Medications: - ASPIRIN: 81mg daily, this was initiated due to thrombocytosis, at one point platelets reached 1.2 million, now improving, see below - VITAMIN D: continue daily supplementation - METFORMIN: 500mg ER in the evening, after one week can increase to 1000mg in the evening COVID 19 pneumonia with hypoxia: resolved, completed 10 days of dexamethasone, no dyspnea or cough, she is no longer contagious Thrombocytosis: felt to be due to COVID, reaction, at one point reached 1.2 million down to 725k now continue aspirin 81mg daily follow up with Dr. Valles, hematology, in 2 weeks Diabetes type II, uncontrolled not previously on medication start on Metformin 500mg ER in the evening, after a week increase to 1000mg ER she will need scripts for the following at the time of discharge 1. OneTouch Verio meter. 2. OneTouch Verio Test Strips - to check 1x/day. 3. OneTouch Delica Lancets 33 gauge - to check 1x/day. Right hip arthroplasty on 07/04/20 at [place] needs rehab to get stronger to get back to independent living of note, after she had syncope two weeks ago she was seen at [place] [facility], x-ray showed hip implant was in good position, no fractures Pending Studies at Discharge: No Stand-Alone Forms: My [facility] Skilled Items Patient informed of condition?: Yes DNR: No Discharge Level of Care: Acute rehab Communicable Disease: No Discharge Prognosis: Stable Lines: None Urinary Catheter: No Medications and DC Order Prescriptions: New metformin 500 mg tablet extended release 24 hr 500 mg PO PM Qty: 30 RF: 3 aspirin 81 mg Tablet,Delayed Release (Dr/Ec) 81 mg PO QAM 30 Days Qty: 30 RF: 0 cholecalciferol (vitamin D3) 25 mcg (1,000 unit) Capsule 5,000 unit PO QAM 30 Days Qty: 30 RF: 3 Continued Eliquis 5 mg tablet PO BID RF: 0 metoprolol succinate 25 mg tablet extended release 24 hr PO HS RF: 0 olmesartan-hydrochlorothiazide 20-12.5 mg tablet DAILY RF: 0 Discharge Orders: Discharge Order (Routine); Ordered 07/28/20 Ordered By: Aurelio Pelayo/Other Patient Handouts: High Blood Sugar (Hyperglycemia), Hypoglycemia (Low Blood Sugar), 5 Steps for Eating Healthier, Type 2 Diabetes, A1C Admission Data Admit Date/Time: 07/15/20 22:27 Attending Provider: Aurelio Alfonso Admit Provider: Robson Roldan Primary Care Provider: Jesus He Other Providers: [facility] ; Robson Roldan ; Jesus Valles V. ; [facility], [facility] [place] Care Code D/C Day Management >30 mins Diagnoses Thrombocytosis D47.3 Pneumonia due to COVID-19 virus U07.1; J12.82 Acute respiratory failure with hypoxia J96.01 Syncope R55 Syncope type: unspecified Atrial fibrillation I48.0 Atrial fibrillation type: paroxysmal S/P total hip arthroplasty Z96.649 Hypertension I10 Diabetes mellitus type 2, uncontrolled E11.65 DULCE (obstructive sleep apnea) G47.33 Acute kidney injury N17.9 Adjustment reaction F43.20 Breast nodule N63.0 DVT prophylaxis Z29.9
[2020-07-28] MEDS ORDERED: INSULIN ASPART PER UNIT SC ONE (13:00)
== END 2020-07-28 14:30 | DRG 177 ==
LOC: ED 18:23 → 2W 22:27 → SUATTDRO 22:27 → 2W 23:34 → 3W 07-27 11:18